=== PATIENT | female | born 1940 | race Caucasian/White ===

== ENCOUNTER 2020-01-14 08:47 | Outpatient (CLI) | payer MEDICARE, OTHER, SELFPAY ==
--- NOTE | ~2020-01-14 | MM_ITS ---
EXAMINATION: MM screening lauren BI w quintin HISTORY: Screening mammogram TECHNIQUE: Craniocaudal and mediolateral oblique 3-D tomosynthesis images were obtained and synthetic 2-D images were generated. CAD analysis was submitted and interpreted. COMPARISON: Comparison to multiple prior studies sequentially, with oldest reviewed study dated 06/2016. BREAST PARENCHYMAL COMPOSITION: There are scattered areas of fibroglandular density. FINDINGS: There is no evidence of suspicious mass, calcification, or architectural distortion to sugg est malignancy in either breast. There has been no suspicious interval change. IMPRESSION: 1. No mammographic evidence of malignancy. 2. Recommend routine screening mammography in one year. BI-RADS Category 1: Negative Reviewed, dictated and finalized at location A. ER HIDES
== END 2020-01-14 08:48 | disposition home or self-care (01) ==
LOC: ANHIMG 08:55
PROVIDERS: PCP Family Medicine; Visit Provider Family Medicine
DX: Z12.31 Encounter for screening mammogram for malignant neoplasm of breast (principal)
CPT/HCPCS: 77063; 77067

== ENCOUNTER 2020-05-12 20:51 | Emergency (ER) | payer MEDICARE, OTHER, SELFPAY ==
--- NOTE | ~2020-05-12 | XR_ITS ---
EXAMINATION: XR hip LT 2V w AP pelvis INDICATION: Left hip pain after fall TECHNIQUE: AP view the pelvis and two views of the left hip are obtained. COMPARISON: None available FINDINGS: Bone alignment is normal. There is no fracture. 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 C alcified atherosclerosis is noted. IMPRESSION: 1. No acute osseous abnormality. Reviewed, dictated and finalized at location A.
--- NOTE | ~2020-05-12 | XR_ITS ---
EXAMINATION: XR knee LT min 4V DATE: 05/12/2020 21:34 INDICATION: Left knee pain TECHNIQUE: Four views of the left knee were obtained. COMPARISON: None. FINDINGS: Alignment is normal. No fracture or osteochondral lesion. There is moderate tricompartmenta l osteoarthritis characterized by marginal osteophytes and joint space narrowing. A small knee joint effusion is present. There is medial soft tissue swelling of the knee. IMPRESSION: 1. No acute osseous abnormality. Reviewed, dictated and finalized at location A.
[2020-05-12 20:53] VITALS: BP 162/103; PULSE 62; RESP 16; TEMP 36.3; O2SAT 100
--- NOTE | 2020-05-12 21:08 | ED.LOWEXIN ---
HPI - Extremity Injury (Lower) General Chief Complaint: Extremity Injury, Lower Stated Complaint: left knee pain Time Seen by Provider: 05/12/20 20:59 Source: RN notes reviewed History of Present Illness HPI Narrative: Patient presents emergency department from home for left knee pain. Patient states that prior to arrival she was walking in the yard when she felt a pop in her left lateral knee with pain rating from her left knee up into her left posterior hip. Patient states that she is been unable to bend the knee secondary to pain since that time. Patient states she did take Aleve with minimal relief. She denies any other trauma or injury. States she does have a history of arthritis in that knee Related Data Home Medications Medication Instructions Recorded Confirmed hydrochlorothiazide 12.5 mg tablet 12.5 mg PO DAILY 12/31/19 multivitamin 1 tablet PO DAILY 12/31/19 olmesartan 20 mg tablet 20 mg PO DAILY 12/31/19 Allergies Allergy/AdvReac Type Severity Reaction Status Date / Time ciprofloxacin Allergy Unknown Unknown Verified 05/12/20 20:57 penicillin V Allergy Unknown Unknown Verified 05/12/20 20:57 Penicillins Allergy Unknown Skin Verified 05/12/20 20:57 Reaction quinapril Allergy Unknown cough Verified 05/12/20 20:57 Review of Systems Review of Systems: Narrative: Gen.: Denies fevers or chills Musculoskeletal: See HPI Neuro: Denies numbness, tingling, weakness Skin: Denies rash Endo: Denies DM PMFSH Past Medical History Medical History Major depressive disorder, single episode, mild Social History Social History Smoking status: Never smoker Alcohol intake: current Gender identity (if verbalized by the patient): Female Exam Narrative: Exam Narrative: APPEARANCE: No acute distress, nontoxic, resting in bed Eyes: EOMI HEENT: Normocephalic, atraumatic, RESPIRATORY: No respiratory distress MUSCULOSKELETAl: Tender palpation of left lateral knee, no swelling or ecchymosis, no tenderness over the anterior medial or posterior knee, pain with flexion greater than 45 degrees, pain along the left lateral hip into the posterior hip no tenderness left ankle, dorsalis pedis pulse 2+, neurovascular intact NEURO: Awake and alert. Following commands, speech normal, no focal deficits SKIN:: Warm, dry. Normal Color no rash or lesions Course Course Emergency Course: Discussed with patient results of workup and diagnosis. Discussed need for follow-up with primary care, proper use of medication, and reasons to return to the emergency department. Patient understands and agrees to current treatment plan Vital Signs Vital signs: Vital Signs Temperature 97.4 F L 05/12/20 20:53 Pulse Rate 62 05/12/20 20:53 Respiratory Rate 16 05/12/20 20:53 Blood Pressure 162/103 H 05/12/20 20:53 Pulse Oximetry 100 05/12/20 20:53 Temperature 97.4 F L 05/12/20 20:53 Pulse Rate 62 05/12/20 20:53 Respiratory Rate 16 05/12/20 20:53 Blood Pressure 162/103 H 05/12/20 20:53 Pulse Oximetry 100 05/12/20 20:53 MDM - Extremity Injury (Lower) MDM Narrative Medical decision making narrative: Patient walking pain in the left lateral knee radiates from his left hip. Suspect possible meniscus tear versus ligamentous injury versus possible hamstring injury. Discussed with patient these possibilities will place in the immobilizer follow-up with her orthopedics Dr. Stratton Discharge Plan Discharge Clinical Impression: Left knee sprain Patient Disposition: Home, Self-Care Condition: Stable Instructions: Antibiotic Form, Knee Sprain (ED) Additional Instructions: Return for increasing pain, numbness or tingling in the extremities or any other symptoms of concern Prescriptions: New naproxen 250 mg tablet 250 mg PO BID PRN (Reason: pain) Qty: 10 RF: 0 No Action hydrochlorot
[2020-05-12] MEDS: ACETAMINOPHEN 500 MG TABLET 1000 MG PO (21:38)
[2020-05-12 23:02] VITALS: BP 132/86; PULSE 82; RESP 16; TEMP 36.6; O2SAT 98
== END 2020-05-12 23:03 | disposition home or self-care (01) ==
PROVIDERS: Emergency Provider Emergency Medicine; PCP Family Medicine
DX: S83.92XA Sprain of unspecified site of left knee, initial encounter (principal); M17.12 Unilateral primary osteoarthritis, left knee; X50.9XXA Other and unspecified overexertion or strenuous movements or postures, initial encounter; Y93.01 Activity, walking, marching and hiking
CPT/HCPCS: 73502; 73564; 99284; A9270

== ENCOUNTER 2020-06-09 10:14 | Outpatient (CLI) | payer MEDICARE, OTHER, SELFPAY ==
--- NOTE | ~2020-06-09 | US_ITS ---
EXAMINATION: US right upper quadrant DATE: 06/09/2020 10:50 INDICATION: Nonspecific elevation of the levels of transaminase TECHNIQUE: Multiple grayscale and Doppler ultrasound images of the abdomen were obtained. COMPARISON: None available FINDINGS: The head, body, and tail of the pancreas are normal. The liver is normal with normal echoge nicity and echotexture. No surface nodularity. Normal hepatopetal flow in the main portal vein. The g allbladder is normal with no abnormal wall thickening, pericholecystic fluid or stones. The normal fo r age common bile duct measures 7 mm. There was no sonographic Thompson sign. IMPRESSION: 1. No sonographic correlate for the patient's symptoms. Reviewed, dictated and finalized at location A.
== END 2020-06-09 10:15 | disposition home or self-care (01) ==
LOC: ANHIMG 10:15
PROVIDERS: PCP Family Medicine; Visit Provider Family Medicine
DX: R74.0 Nonspecific elevation of levels of transaminase and lactic acid dehydrogenase [LDH] (principal)
CPT/HCPCS: 76705

== ENCOUNTER 2020-06-13 10:09 | Emergency (ER) | payer MEDICARE, OTHER, SELFPAY ==
[2020-06-13 10:26] VITALS: BP 136/66; PULSE 71; RESP 20; TEMP 36.3; O2SAT 100
--- NOTE | 2020-06-13 10:33 | ED.GENADULT ---
HPI - General Adult General Chief complaint: Skin/Abscess/Foreign Body Stated complaint: left finger redness, nausea Time Seen by Provider: 06/13/20 10:33 Source: patient and RN notes reviewed Mode of arrival: ambulatory Limitations: no limitations History of Present Illness HPI narrative: This is an 79 years old female presented office for evaluation of worsening left pinky infection. She first noticed it a couple weeks ago, her doctor thought she was bit by a spider by so she prescribed her prednisone and clindamycin. She claimed that the antibiotic did not help her infection. She still has a day and half left. Denies injury/trauma prior to this symptoms. She reports a little stomach upset contribute to antibiotic. I reviewed patient's previous visit with her doctor. HPI Pain Chief Complaint: pinkyfinger on left hand at the tip is red and swollen Details: Pt does not know what happened but she is experiencing an infection on the tip of her pinky finger of her left hand. Onset: 06/03/20 Related Data Home Medications Medication Instructions Recorded Confirmed hydrochlorothiazide 12.5 mg tablet 12.5 mg PO DAILY 12/31/19 06/13/20 multivitamin 1 tablet PO DAILY 12/31/19 06/13/20 olmesartan 20 mg tablet 20 mg PO DAILY 12/31/19 06/13/20 clindamycin HCl 300 mg BID 06/13/20 06/13/20 Allergies Allergy/AdvReac Type Severity Reaction Status Date / Time ciprofloxacin Allergy Unknown Unknown Verified 06/06/20 15:29 penicillin V Allergy Unknown Unknown Verified 06/06/20 15:29 Penicillins Allergy Unknown Skin Verified 06/06/20 15:29 Reaction quinapril Allergy Unknown cough Verified 06/06/20 15:29 Review of Systems Review of Systems: Narrative: CONSTITUTIONAL: Denies fever, chills CARDIOVASCULAR: Denies chest pain RESPIRATORY: Denies dyspnea GASTROINTESTINAL: Denies abdominal pain, vomiting, diarrhea. Reports nausea GENITOURINARY: Denies urinary symptoms SKIN: reports left pinky red, swollen and painful MUSCULOSKELETAL: Denies injury/trauma to fingers. NEUROLOGIC: Denies lightheaded All other systems reviewed are negative, except as documented in HPI. [facility] Past Medical History Medical History (Updated 06/13/20 @ 10:58 by MALISSA Erazo) Chronic kidney disease, stage 3 (moderate) Essential (primary) hypertension GERD without esophagitis Glaucoma Hypertensive chronic kidney disease with stage 1 through stage 4 chronic kidney disease, or unspecified chronic kidney disease Hypertensive heart disease, benign w/chronic kidney disease stage 1-4 Major depressive disorder, single episode, mild Metabolic syndrome Mixed hyperlipidemia Social History Social History Smoking status: Never smoker Alcohol intake: current Gender identity (if verbalized by the patient): Female Comments At time of signature, I agree with nursing past medical, surgical, social and family history. There is no relevant family history pertinent to the presenting complaint. Exam Narrative: Exam Narrative: GENERAL: This is a well-nourished, well-developed patient, in no apparent distress. CARDIOVASCULAR: Regular rate and rhythm without murmurs, gallops, or rubs. RESPIRATORY: Clear to auscultation. Breath sounds equal bilaterally. No wheezes, rales, or rhonchi. GASTROINTESTINAL: Abdomen soft, non-tender, nondistended. Bowel sounds are active. No hepato-splenomegaly, or palpable masses. No guarding. SKIN: left fifth phalange noted paronychia at the ulnar aspect; very edematous, erythema with pustular pocket. NEURO: awake, alert, and oriented to person, place and time. There were no obvious focal neurologic abnormalities. Steady gait EXTREMITIES: Normal range of motion; moves all fingers. Cap refills brisk BACK: Nontender without deformity or crepitance. No flank tenderness. Tamara Coma Scale Eye Opening: Spontaneous 4 Tamara Coma Scale Motor: Obeys Commands 6 Tamara Coma Scale Verb
== END 2020-06-13 10:53 | disposition home or self-care (01) ==
PROVIDERS: Emergency Provider Nurse Practitioner; PCP Family Medicine
DX: L03.012 Cellulitis of left finger (principal); I13.10 Hypertensive heart and chronic kidney disease without heart failure, with stage 1 through stage 4 chronic kidney disease, or unspecified chronic kidney disease; N18.3 Chronic kidney disease, stage 3 (moderate); K21.9 Gastro-esophageal reflux disease without esophagitis; H40.9 Unspecified glaucoma; E78.5 Hyperlipidemia, unspecified
CPT/HCPCS: 10060; 99212; G0463

== ENCOUNTER 2020-06-16 10:27 | Emergency (ER) | payer MEDICARE, OTHER, SELFPAY ==
[2020-06-16 10:48] VITALS: BP 151/61; PULSE 65; RESP 20; TEMP 36.3; O2SAT 99
--- NOTE | 2020-06-16 12:04 | ED.SKABFB ---
HPI - Skin/Abscess/Foreign Bdy General Chief complaint: Extremity Problem,Nontraumatic Stated complaint: finger pain Source: patient and RN notes reviewed Mode of arrival: ambulatory Limitations: no limitations History of Present Illness HPI narrative: The patient, who is on several routine meds, presents with wound check of left index finger. Patient states she has HTN, HLD, OA with Heberden nodes then had earlier visits to her PMD and here; at mid week, she completed a 7d course of clindamycin for distal fingertip infection. On her 3rd, last visit she underwent a I&D here and states nothing has seemed to help-except she has dyspepsia from the meds. She comments she is right-handed, has pet cats, immunizations are UTD [shingles, tet etc], and does occasional gardening. Infection seems to be sl spreading with rare,small satellite lesions proximally, Symptoms are mild and unimproved with Epson salt soaks, and short course steroid. No fever, proximal streaking, trauma, known bite/cut, prior/other rashes, Discussed possible causes [viral, resistant bacterial, etc.] and will treat broadly and follow-up with PMD or hand doctor. Patient history includes CKD, which she is unaware of. Patient advised will be given acyclovir to take twice daily, till she confirms her renal function/creatinine with her PMD. Related Data Home Medications Medication Instructions Recorded Confirmed hydrochlorothiazide 12.5 mg tablet 12.5 mg PO DAILY 12/31/19 06/16/20 multivitamin 1 tablet PO DAILY 12/31/19 06/16/20 olmesartan 20 mg tablet 20 mg PO DAILY 12/31/19 06/16/20 clindamycin HCl 300 mg BID 06/13/20 06/13/20 Allergies Allergy/AdvReac Type Severity Reaction Status Date / Time ciprofloxacin Allergy Unknown Unknown Verified 06/16/20 11:03 penicillin V Allergy Unknown Unknown Verified 06/16/20 11:03 Penicillins Allergy Unknown Skin Verified 06/16/20 11:03 Reaction quinapril Allergy Unknown cough Verified 06/16/20 11:03 Review of Systems Review of Systems: Narrative: General/Constitutional: No weight loss,fever Eyes: N0: Redness,discharge Ears/Nose/Throat: No: Epistaxis,ear discharge Respiratory: Denies: Hemoptysis Gastrointestinal: No Vomiting, Bleeding-rectal Skin: No Lumps, REPORTS eruption Neurologic: No Focal Weakness,Sz Hematologic: Denies: Petechiae/Purpura Psychiatric: No: Suicida ideationl All Other Systems: Reviewed and Negative [facility] Past Medical History Medical History (Updated 06/16/20 @ 11:41 by Donn El MD) Chronic kidney disease, stage 3 (moderate) Essential (primary) hypertension GERD without esophagitis Glaucoma Hypertensive chronic kidney disease with stage 1 through stage 4 chronic kidney disease, or unspecified chronic kidney disease Hypertensive heart disease, benign w/chronic kidney disease stage 1-4 Major depressive disorder, single episode, mild Metabolic syndrome Mixed hyperlipidemia Social History Social History Smoking status: Never smoker Alcohol intake: current Gender identity (if verbalized by the patient): Female Comments At time of signature, agree with nursing past medical, surgical, social and family history. There is no relevant family history pertinent to the presenting complaint Exam Narrative: Exam Narrative: General Appearance: Well-nourished, Normocephalic, Conjunctiva clear Mouth/Throat: Normal appearing Supple Respiratory: Airway patent, No respiratory distress Musculoskeletal: Mild/diffuse decreased ROM and strength due to age, hands with Heberden nodes Skin: Poorly healing, slightly infected I&D site of the index finger otherwise warm, Dry Neurological: A&O x3 Psychiatric: Normal mood, Normal affect Course Vital Signs Vital signs: Vital Signs Temperature 97.3 F L 06/16/20 10:48 Pulse Rate 65 06/16/20 10:48 Respiratory Rate 06/16/20 10:48 Blood Pressure 151/61 H 06/16/20 10:48 Pu
== END 2020-06-16 11:50 | disposition home or self-care (01) ==
PROVIDERS: Emergency Provider Emergency Medicine; PCP Family Medicine
DX: L08.9 Local infection of the skin and subcutaneous tissue, unspecified (principal); I12.9 Hypertensive chronic kidney disease with stage 1 through stage 4 chronic kidney disease, or unspecified chronic kidney disease; N18.3 Chronic kidney disease, stage 3 (moderate); H40.9 Unspecified glaucoma; E78.2 Mixed hyperlipidemia; E88.81 Metabolic syndrome and other insulin resistance; M15.1 Heberden's nodes (with arthropathy)
CPT/HCPCS: 99213; G0463

== ENCOUNTER 2021-01-19 10:10 | Outpatient (CLI) | payer MEDICARE, OTHER, SELFPAY ==
--- NOTE | ~2021-01-19 | MM_ITS ---
EXAMINATION: MM screening lauren BI w quintin HISTORY: Screening TECHNIQUE: Craniocaudal and mediolateral oblique 3-D tomosynthesis images were obtained and synthetic 2-D images were generated. CAD analysis was submitted and interpreted. COMPARISON: Comparison to multiple prior studies sequentially, with oldest reviewed study dated 12/31. BREAST PARENCHYMAL COMPOSITION: There are scattered areas of fibroglandular density. FINDINGS: There is no evidence of suspicious mass, calcification, or architectural distortion to sugg est malignancy in either breast. There has been no suspicious interval change. IMPRESSION: 1. No mammographic evidence of malignancy. 2. Recommend routine screening mammography in one year. BI-RADS Category 1: Negative Reviewed, dictated and finalized at location A. 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
== END 2021-01-19 10:11 | disposition home or self-care (01) ==
LOC: ANHIMG 10:11
PROVIDERS: PCP Family Medicine; Visit Provider Family Medicine
DX: Z12.31 Encounter for screening mammogram for malignant neoplasm of breast (principal)
CPT/HCPCS: 77063; 77067

== ENCOUNTER 2021-05-04 09:52 | Outpatient (CLI) | payer MEDICARE, OTHER, SELFPAY ==
--- NOTE | ~2021-05-04 | DEXA_ITS ---
Bone Density Report Name: Shama Presley Age: 80 Sex: Female Ethnicity: White Date of : 1940 Indication: osteopenia; height loss; prior fracture; hysterectomy; postmenopausal Referring Provider: Kaykay Blair Study: Bone densitometry was performed. Exam Date: May 04, 2021 Accession number: [id number] Bone Density: Region BMD T-score Z-score Classification AP Spine (L1, L4) 1.126 0.8 3.5 Normal Femoral Neck (Left) 0.675 -1.6 0.8 Osteopenia Total Hip (Left) 0.784 -1.3 0.9 Osteopenia Total Hip Bilateral Avg 0.817 -1.1 1.1 Osteopenia Femoral Neck (Right) 0.732 -1.1 1.3 Osteopenia Total Hip (Right) 0.849 -0.8 1.4 Normal World Health Organization criteria for BMD impression classify patients as: Normal (T-score at or above -1.0), Osteopenia (T-score between -1.0 and -2.5), or Osteoporosis (T-score at or below -2.5). 10-year Fracture Risk(1): Major Osteoporotic Fracture 20% Hip Fracture 4.5% Reported Risk Factors: [place] (), Neck BMD=0.675, BMI=27.0, previous fracture (1) FRAX(R) Version 3.08. Fracture probability calculated for an untreated patient. Fracture probability may be lower if the patient has received treatment. Previous Exams: Region Exam Age BMD T-score BMD Change BMD Change Date g/cm2 vs Baseline vs Previous AP Spine(L1, L4) 05/04/2021 80 1.126 0.8 0.044(4.1%)# -0.005(-0.4%) 01/12/2019 78 1.131 0.9 0.049(4.5%)# 0.074(7.0%)* 12/31/2016 76 1.057 0.2 -0.025(-2.3%)# -0.127(-10.7%) 08/26/2011 70 1.184 1.3 0.102(9.4%)* 0.102(9.4%)* 11/02/2005 65 1.082 0.4 Total Hip(Left) 05/04/2021 80 0.784 -1.3 -0.060(-7.1%)# -0.029(-3.6%)* 01/12/2019 78 0.813 -1.1 -0.031(-3.6%)# -0.003(-0.4%) 12/31/2016 76 0.816 -1.0 -0.028(-3.3%)# -0.028(-3.3%)# 08/26/2011 70 0.844 -0.8 0.000(0.0%) 0.000(0.0%) 11/02/2005 65 0.844 -0.8 Total Hip(Right) 05/04/2021 80 0.849 -0.8 -0.028(-3.2%)# -0.004(-0.5%) 01/12/2019 78 0.853 -0.7 -0.024(-2.8%)# -0.016(-1.9%) 12/31/2016 76 0.870 -0.6 -0.008(-0.9%)# -0.011(-1.3%)# 08/26/2011 70 0.881 -0.5 0.003(0.3%) 0.003(0.3%) 11/02/2005 65 0.878 -0.5 *Denotes significance at 95% confidence level, LSC for AP Spine = 0.022 g/cm2, LSC for Total Hip = 0.027 g/cm2 Clinical Information Provided by Patient: Has had a low trauma fracture Has used the following medications: Vitamin D, Calcium Has the following medical conditions: Hysterectomy Patient
== END 2021-05-04 09:53 | disposition home or self-care (01) ==
LOC: ANHIMG 09:53
PROVIDERS: PCP Family Medicine; Visit Provider Physician Assistant
DX: Z78.0 Asymptomatic menopausal state (principal); M85.89 Other specified disorders of bone density and structure, multiple sites
CPT/HCPCS: 77080

== ENCOUNTER 2021-11-07 07:47 | Outpatient (CLI) | payer MEDICARE, OTHER, SELFPAY ==
[2021-11-07 09:25] LABS: Basophils Percent Auto 0.3 % (0.2-1.2); Eosinophils Percent Auto 0.1 % (0-4.4); Immature Granulocyte Absolute 0.05 K/mm3 (0.00-0.031); Immature Granulocyte Percent A 0.5 % (0-0.5); Lymphocytes Absolute Auto 1.38 K/mm3 (0.9-3.2); Lymphocytes Percent Auto 13.9 % (18.3-44.2); Mean Corpuscular HGB Conc 33.3 g/dl (32-36); Mean Corpuscular Hemoglobin 31.6 pg (26-34); Mean Corpuscular Volume 94.9 fl (80-100); Mean Platelet Volume 10.3 fl (7.4-10.4); Monocytes Absolute Auto 0.8 K/mm3 (0.1-0.6); Monocytes Percent Auto 7.6 % (2.6-8.5); Neutrophils Absolute Auto 7.7 K/mm3 (1.3-6.7); Neutrophils Percent Auto 77.6 % (45.5-73.1); Platelet Count Result 209 k/mm3 (150-375); Red Blood Count 4.11 M/mm3 (4.2-5.4); Red Cell Distribution Width 13.5 % (11.5-14.5); White Blood Count 9.9 K/mm3 (4.5-10.0)
[2021-11-07 09:32] LABS: Prothrombin Time 12.6 Seconds (11.1-14.7)
[2021-11-07 09:33] LABS: Partial Thromboplastin Time 24.1 SECONDS (22.3-36.8); Urine Cotinine NEGATIVE
[2021-11-07 09:41] LABS: Hemoglobin A1C 5.5 % (<5.7)
== END 2021-11-07 07:48 | disposition home or self-care (01) ==
PROVIDERS: Anesthesiology; PCP Family Medicine; Visit Provider Orthopaedic Surgery
DX: Z01.812 Encounter for preprocedural laboratory examination (principal); M17.12 Unilateral primary osteoarthritis, left knee; N18.30 Chronic kidney disease, stage 3 unspecified; Z51.81 Encounter for therapeutic drug level monitoring; Z79.899 Other long term (current) drug therapy
CPT/HCPCS: 36415; 80307; 83036; 85025; 85610; 85730; 87081

== ENCOUNTER 2021-11-28 00:30 | Day surgery (SDC) | payer MEDICARE, OTHER, SELFPAY ==
[2021-11-07 07:58] VITALS: BP 174/74; PULSE 78; RESP 18; TEMP 36.8; O2SAT 98; BMI 28.0
--- NOTE | 2021-11-07 07:59 | PC.NURSE ---
Report to the Outpatient Waiting Room, entrance under the green pavilion located off [facility], at time _0600__ on date _11/28/21. OR Time: __0730 AM . - You and your visitor will be asked a series of questions to screen for COVID 19 for your protection. - A mask is required within the hospital. - Only one visitor is allowed at this time. Patient visitors will be guided where to wait when not with patient. Preoperative COVID Testing Requirements: No COVID Test needed if: (proof is required; if not received patient will have Rapid Test prior to entry) - Patient has received COVID Vaccine at least 14 days prior to procedure date or - Patient has positive COVID test result within last 90 days of surgery date. COVID Test needed if above criteria is not met If not COVID vaccinated a COVID test must be conducted within 72 hours of surgery and patient is asked to isolate self from time of testing until procedure. You will go to the [facility] for your COVID testing. The [facility] is located at the corner of [address] [facility]. You will only be called if COVID results are positive and your surgeon may reschedule your elective surgery date. Patients may have clear liquids (water, carbonated beverages, clear teas, apple juice) until 3 hours prior to surgery (0430 AM) with a maximum of 20 ounces. - No food from midnight until time of surgery - Infants may have breast milk until 4 hours before surgery, infant formula 6 hours prior to surgery. - Children will be allowed to drink immediately following surgery. If applicable, please bring a bottle or sippy cup to assist with drinking. Juice, water, soda, and popsicles are readily available. For infants on formula, please bring formula the day of surgery. Pacifiers are allowed. Take the following medications with a SIP of water the morning of surgery: _NONE___ Medications to discontinue per physician __MULTIVITAMIN - 3 DAYS PRIOR PER ANESTHESIA Date to take last dose___11/24/21 Please no make-up, nail icelandic, hairspray, perfume, deodorant, or body powder the day of surgery. No jewelry (including any body piercings) or valuables the day of surgery, leave them at home. Please take a shower or bath the night before, or the morning of, surgery with an antibacterial soap. Wear comfortable, loose fitting clothing. Children are encouraged to wear pajamas. - Jewelry must be removed prior to entering the operating room. Rings and piercings that are not removed may be cut off. - The hospital will not accept responsibility for valuables. - Please leave all valuables, including medications, at home the day of surgery. If you are going home after surgery, a licensed sales route driver must drive you home. - NO public transportation without another adult. - We recommend that an adult stay with you for 24 hours following discharge. - We also recommend that you do not drive, make important decision, drink alcoholic beverages, or take any drugs that were not prescribed by your health care provider for at least 24 hours after your discharge time. For Pediatric surgeries, we recommend two adults accompany the child home (only one inside the building at this time). Follow any additional instructions given to you from your surgeon. TOTAL JOINT CLASS - [facility] 11/21/21 @ 1000 LOWER LEVEL, USE MAIN ENTRANCE Telephone instructions given to ___PT and asked if any additional questions and then verbalized understanding. Patient advised to call surgeon office or pre surgery nurse liaison [phone] if any additional questions.
--- NOTE | 2021-11-26 14:25 | PM.IMHP ---
H&P: HPI History of Present Illness Date/Time: 11/26/21 14:25 the patient is a an 81-year-old female who sees Dr. Stratton regarding left knee. Patient has a chronic ongoing history of pain localized left knee this due to primary osteoarthritis. The patient has aching pain worse with activities and relieved by rest. She has start-up pain rest pain and night pain. Despite conservative measures symptoms continue she has had cortisone therapy and anti-inflammatories. X-rays demonstrate advanced primary osteoarthritis left knee joint. At this point the patient has discussed further treatment options in detail Dr. Stratton she would now like to proceed with left total knee arthroplasty. Chief Complaint: Left knee pain due to advanced primary osteoarthritis. Review of Systems Review of Systems: All systems reviewed & are unremarkable except as noted in HPI and below PMFSH Past Medical History Medical History Chronic kidney disease, stage 3 (moderate) Essential (primary) hypertension GERD without esophagitis Glaucoma Hepatitis C antibody test negative (06/15/20) Hypertensive chronic kidney disease with stage 1 through stage 4 chronic kidney disease, or unspecified chronic kidney disease Hypertensive heart disease, benign w/chronic kidney disease stage 1-4 Major depressive disorder, single episode, mild Metabolic syndrome Mixed hyperlipidemia Family History Family History Grandparent Cerebrovascular accident Mother Carcinoma of colon Patient's mother is Father Family history of lung cancer Patient's father is Other Family history of elevated blood lipids Hypertension No family history of cardiovascular disease Social History Social History Smoking status: Never smoker Second hand tobacco smoke exposure: No Additional smoking assessment comments: PT DENIES ALL FORMS OF TOBACCO USE Alcohol intake: current Alcohol use details: STATES MAYBE 1 / MONTH Substance use: never Substance use type: does not use Gender identity (if verbalized by the patient): Female Spiritual care concerns: No Meds Home Medications and Allergies Home Medications Medication Instructions Recorded Confirmed Type multivitamin 1 tablet PO QAM 12/31/19 11/07/21 History latanoprost 0.005 % eye drops 1 drp OPHTHALMIC (EYE) QPM 10/06/20 11/07/21 History omeprazole 20 mg capsule,delayed See Rx Instructions .ROUTE 08/14/21 11/07/21 Rx release .COMPLEX #90 cap atorvastatin 20 mg PO QAM 11/07/21 11/07/21 History clotrimazole See Rx Instructions .ROUTE 11/07/21 11/07/21 History .COMPLEX PRN hydrochlorothiazide 25 mg PO QAM 11/07/21 11/07/21 History lidocaine 1 applic TOPICAL TID PRN 11/07/21 11/07/21 History olmesartan 40 mg PO QAM 11/07/21 11/07/21 History prednisone See Rx Instructions .ROUTE .COMPLEX 11/07/21 11/07/21 History triamcinolone acetonide See Rx Instructions .ROUTE .COMPLEX 11/07/21 11/07/21 History Allergies Allergy/AdvReac Type Severity Reaction Status Date / Time ciprofloxacin Allergy Unknown Nausea and Verified 11/07/21 08:12 Vomiting penicillin V Allergy Unknown Rash Verified 11/07/21 08:12 quinapril Allergy Unknown cough Verified 11/07/21 08:12 Exam Narrative: On exam the patient is noted be a well-developed well-nourished female no acute distress alert oriented x3. Normal mood and affect. BMI is 28.1. Hearing and vision are intact. Respiratory is good no distress. Pulse regular rate rhythm. Abdomen benign. Extremities showed the patient's left knee to be painful with manipulation and range of motion. She has tenderness on the joint lines and pain with extremes of motion with subpatellar crepitation mild effusion swelling hips move well with negative Stinchfield negative Robi. Neurovascularl
--- NOTE | 2021-11-27 11:40 | WPDANESEPPF ---
Anes - Initial Pre Proc Eval Procedure: Operation Date: 11/28/21 07:30 Proposed Procedures p Left Total Knee Arthroplasty - Billy Stratton MD Date/Time: 11/27/21 11:40 Surgeon: Billy Stratton MD Pre Op Diagnosis: left knee oa Patient Data Age: 81 Gender: F Height: 1.6 m Weight: 71.9 kg Last Vital Signs Temp 36.8 C 11/07/21 07:58 Pulse 78 11/07/21 07:58 Resp 18 11/07/21 07:58 BP 174/74 H 11/07/21 07:58 Pulse Ox 98 11/07/21 07:58 Allergies Allergy/AdvReac Type Severity Reaction Status Date / Time ciprofloxacin Allergy Mild Nausea and Verified 11/28/21 05:59 Vomiting penicillin V Allergy Mild Rash Verified 11/28/21 05:59 quinapril Allergy Mild cough Verified 11/28/21 05:59 Home Medications Medication Instructions Recorded Confirmed Type multivitamin 1 tablet PO QAM 12/31/19 11/28/21 History latanoprost 0.005 % eye drops 1 drp OPHTHALMIC (EYE) QPM 10/06/20 11/28/21 History omeprazole 20 mg capsule,delayed See Rx Instructions .ROUTE 08/14/21 11/28/21 Rx release .COMPLEX #90 cap atorvastatin 20 mg PO QAM 11/07/21 11/28/21 History clotrimazole See Rx Instructions .ROUTE 11/07/21 11/28/21 History .COMPLEX PRN hydrochlorothiazide 25 mg PO QAM 11/07/21 11/28/21 History lidocaine 1 applic TOPICAL TID PRN 11/07/21 11/07/21 History olmesartan 40 mg PO QAM 11/07/21 11/28/21 History triamcinolone acetonide See Rx Instructions .ROUTE .COMPLEX 11/07/21 11/28/21 History Patient hx anesthesia problems: none Family hx anesthesia problems: none Results Review: All pre-operative results and documents have been reviewed as part of the pre-operative evaluation. 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 Major depressive disorder, single episode, mild Metabolic syndrome Mixed hyperlipidemia Family History Family History Grandparent Cerebrovascular accident Mother Carcinoma of colon Patient's mother is Father Family history of lung cancer Patient's father is Other Family history of elevated blood lipids Hypertension No family history of cardiovascular disease Social History Social History Smoking status: Never smoker Second hand tobacco smoke exposure: No Additional smoking assessment comments: PT DENIES ALL FORMS OF TOBACCO USE Alcohol intake: current Alcohol use details: STATES MAYBE 1 / MONTH Substance use: never Substance use type: does not use Living arrangements: alone Gender identity (if verbalized by the patient): Female Spiritual care concerns: No Anes - Eval Final PreProcedure Day of Procedure 11/27/21 11:40 Patient weight: overweight Heart: regular rate and rhythm Lungs: clear to auscultation and normal air movement Airway: Mallampati scale class II Neurological: alert and oriented Last oral intake: >/= 8 hours ASA classification: III Emergent: no Anesthetic plan: proceed Anesthesia type and monitoring: general LMA and standard monitoring Results Review: All pre-operative results and documents have been reviewed as part of the pre-operative evaluation. Informed Consent: The patient's anesthetic plan and its attendant risks and benefits were discussed with the patient/family/POA. Questions were solicited and answers provided to the satisfaction of the patient/family/POA.
--- NOTE | 2021-11-27 11:41 | WPDANESPNB ---
Anes - Peripheral Nerve Block Date/Time: 11/27/21 11:41 I have discussed with the patient/family/POA the placement of a peripheral nerve block for post-operative pain management, including associated risks, benefits, complications, and side effects. Alternative methods of post-operative analgesia were detailed. Questions were solicited and answers provided to the satisfaction of the patient/family/POA. Time-Out: A pre-procedural Time-Out was completed immediately before starting the procedure and confirmed: Patient Identification, Site, Procedure, Patient Position and the Availability of Requisite Equipment. Clinical Indications: Acute post-operative pain management requested by the operative surgeon. Nerve Block Insertion Note Anes-nerve block: adductor canal left Patient position: supine Skin prep: chlorhexidine Needle: 22 gauge, stimulating, insulated echogenic needle. Needle length: 80 mm Technique: ultrasound Injectate: bupivacaine 0.5% with epi 5 mcg/ml (30cc - no epi) Observations: tolerated well Complications: none Procedure start time:: 709 Procedure end time:: 713
[2021-11-28] VITALS (14 sets, daily range): BP systolic 129–178; BP diastolic 48–99; PULSE 65–87; RESP 12–30; TEMP 36.4–37.4; O2SAT 95–100
--- NOTE | ~2021-11-28 | XR_ITS ---
EXAMINATION: XR knee LT 2V DATE: 11/28/2021 09:44 INDICATION: Total left knee arthroplasty. Postop. TECHNIQUE: 2 views of left knee were obtained. COMPARISON: Left knee radiograph 05/12/2020 FINDINGS: There is a total left knee arthroplasty with patellar resurfacing in near-anatomic alignmen t. No fracture. There is gas in the knee joint and soft tissues, consistent with recent surgery. Ther e is a small knee joint effusion. Anterior skin mary are noted. IMPRESSION: 1. Total left knee arthroplasty in near-anatomic alignment. Reviewed, dictated and finalized at location B. [employer]
[2021-11-28] MEDS: ACETAMINOPHEN 500 MG TABLET 1000 MG PO (06:18)
[2021-11-28] MEDS: LACTATED RINGERS 1,000 ML 30 ML IV CONT ×2 (06:35→10:13)
--- NOTE | 2021-11-28 07:04 | WPDHPUPDATE1 ---
History and Physical Update Update Date/Time: 11/28/21 07:04 History and Physical has been reviewed, including an updated exam of the patient. There are NO changes in the patient's condition. Risks, benefits, and alternatives have been discussed and questions answered. Patient agrees to proceed with procedure.
[2021-11-28] MEDS: TRANEXAMIC ACID 1,000MG/ISO100 1,000 MG/100 ML BAG 200 MG IVPB (07:05)
[2021-11-28] MEDS: ceFAZolin 2 GM/D5W 50 ML 2 GM/50 ML BAG IVPB (07:24)
--- NOTE | 2021-11-28 08:46 | P.OP_ITS ---
Procedure Note - Detailed Date of Procedure 11/28/21 Pre-op Diagnosis left knee oa Post-op Diagnosis same Procedure Performed [Left] total knee arthroplasty Surgeon Billy Stratton MD Senior [employer] Server Database Developer Kory Damon Anesthesia general Description of Procedure The patient was brought to the operating room. General anesthetic was administered. Placed on the operating table and sterilely prepped and draped in usual manner. A longitudinal incision was made. Tourniquet inflated to 300 mmHg for a total of [time] minutes. Dissection carried down to the fascia. Medial parapatellar incision was made and the patella subluxated laterally. Patella cut from [23] to [15] mm and sized for a [34] mm button. The tibia cut perpendicular to the long axis and femur cut in 5 degrees of valgus, a [60] femur trialed. [67] tibia was felt to fit the best. The soft tissue balanced, hemostasis obtained. All [address], [67] tibia, [660] femur, [34] mm patella, and [13AS] mm poly. Motion was 0-125 degrees with good stablility and flexion and extension. The wound was closed with #2 vicryl, 2-0 Vicryl and mary. Estimated Blood Loss 200 Drains No Packing No Pathology none sent Complications No immediate complications Condition stable Disposition PACU
[2021-11-28] MEDS: HYDROmorphone HCL INJ (*CRX) 1 MG/ML SYR 0.25 MG IV PUSH ×6 (09:34→10:35)
--- NOTE | 2021-11-28 09:58 | SUR.PHASEI ---
Simple mask removed at 0982.
--- NOTE | 2021-11-28 10:58 | ADMGEN ---
This patient, Shama Presley, was admitted to [facility] Surgery-3. Patient/family oriented to hospital policies and general routines including ID bracelet, bed and alarms, visiting hours, pain management, procedures, bathroom and other care routines, personal items, smoking policy, room service/diet, and visiting hours. Information on how to activate the Rapid Response Team has been discussed. Patient/Family are encouraged to report perceived risks to care and to ask questions if they do not understand what they are told or what they should do.
[2021-11-28] MEDS: SODIUM CHLORIDE 0.9% IV 1,000 ML 125 ML IV CONT (11:16)
[2021-11-28] MEDS: ATORVASTATIN 20 MG TABLET PO (12:31)
[2021-11-28] MEDS: hydroCHLOROthiazide 25 MG TABLET PO (12:31)
[2021-11-28] MEDS: MULTIVITAMINS THERAPEUTIC TAB (*BKC) 1 TABLET PO (12:32)
[2021-11-28] MEDS: SENNA/DOCUSATE SODIUM TABLET 2 TAB PO ×2 (12:32→16:12)
[2021-11-28] MEDS: HYDROcodone/acetaminophen (*CRX) 5-325 MG TABLET 2 TAB PO ×2 (12:33→19:00)
--- NOTE | 2021-11-28 14:15 | WPDCN ---
Assessment and Plan Assessment and plan (1) Osteoarthritis of left knee: Code(s): M17.12 - Unilateral primary osteoarthritis, left knee Status: Acute Assessment and Plan: Postoperative day 0 status post left total knee arthroplasty. Wound care, pain control, and DVT prophylaxis deferred to Dr. Stratton. PT/OT consulted. (2) Essential hypertension: Code(s): I10 - Essential (primary) hypertension Status: Acute Assessment and Plan: Blood pressures were reviewed and they have been running high though she did not take her antihypertensives this morning. Pain likely playing a factor here as well. Resume antihypertensives and monitor blood pressures closely. (3) Chronic kidney disease, stage 3: Code(s): N18.30 - Chronic kidney disease, stage 3 unspecified Status: Acute Assessment and Plan: Baseline creatinine is between 1.0 and 1.10. Monitor urine output postoperatively. BMP in a.m. (4) Gastroesophageal reflux disease: Code(s): K21.9 - Gastro-esophageal reflux disease without esophagitis Status: Acute Assessment and Plan: Continue omeprazole. (5) Mixed hyperlipidemia: Code(s): E78.2 - Mixed hyperlipidemia Status: Acute Assessment and Plan: Continue atorvastatin. Check LFTs in a.m. (6) Glaucoma: Code(s): H40.9 - Unspecified glaucoma Status: Acute Assessment and Plan: Continue latanoprost. Additional Plan Thank you for allowing us to participate in this patient's care. Please do not hesitate to contact us with any questions. Supervising physician for this medical consultation is Dr. Erasmo Mccoy. HPI Data of Consult Date/Time: 11/28/21 14:15 Requesting Physician: Billy Stratton MD Primary Care Provider: Pat Morales DO Consult Narrative Narrative: This is an 81-year-old female with hypertension, hyperlipidemia, chronic kidney disease, and osteoarthritis whom the hospitalist service has been consulted for help with managing her medical conditions postoperatively. She has had longstanding pain in her left knee which has not been amenable to conservative outpatient treatment and thus she elected for replacement today. Her surgery was performed under general anesthesia with no immediate complications documented an estimated blood loss of 200 mL. Postoperatively she is doing well and her pain is controlled. She denies fever, chills, sweats, chest pain, shortness of breath, nausea, and vomiting. She also denies paresthesias, skin color, and temperature changes distal to the surgical site. The patient lives alone but her daughter is here from [place] and will be staying with her during her recovery. Review of Systems Review of Systems: Twelve systems were reviewed. No recent cold or flu symptoms. No sick contacts. Chest pain, pleuritic pain, and shortness of breath. No history of venous thromboembolism. Except as documented, all other systems were reviewed and are negative. [facility] Past Medical History Medical History (Updated 11/28/21 @ 14:35 by Michelle Goldman PA-C) Basal cell carcinoma of chest wall Chronic kidney disease, stage 3 Diverticulosis Essential hypertension Gastroesophageal reflux disease Glaucoma Glaucoma Major depressive disorder, single episode, mild Metabolic syndrome Mixed hyperlipidemia Osteoarthritis Surgical History Surgical History (Updated 11/28/21 @ 14:24 by Michelle Goldman PA-C) History of basal cell carcinoma excision History of bladder suspension procedure History of cataract extraction History of colonoscopy History of dilation and curettage History of hysterectomy History of lumbar surgery History of tonsillectomy Family History Family History Grandparent Cerebrovascular accident Mot
[2021-11-28] MEDS: traMADol HCL (*CRX) 50 MG TABLET PO (16:08)
[2021-11-28] MEDS: RIVAROXABAN 10 MG TABLET PO (16:12)
[2021-11-28] MEDS: CELECOXIB 200 MG CAPSULE PO (16:14)
[2021-11-28] MEDS: LATANOPROST 0.005% OP SOLN 2.5 ML BTL 1 DROP EACH EYE (20:23)
[2021-11-29] MEDS: HYDROcodone/acetaminophen (*CRX) 5-325 MG TABLET 1 TAB PO ×2 (05:20→09:36)
[2021-11-29 05:49] VITALS: BP 135/88; PULSE 74; RESP 20
[2021-11-29 06:43] LABS: Basophils Percent Auto 0.6 % (0.2-1.2); Eosinophils Percent Auto 0.4 % (0-4.4); Hematocrit 27.6 % (37.0-47.0); Hemoglobin 9.3 g/dL (12.0-15.0); Immature Granulocyte Absolute 0.01 K/mm3 (0.00-0.031); Immature Granulocyte Percent A 0.2 % (0-0.5); Lymphocytes Absolute Auto 0.81 K/mm3 (0.9-3.2); Lymphocytes Percent Auto 17.5 % (18.3-44.2); Mean Corpuscular HGB Conc 33.7 g/dl (32-36); Mean Corpuscular Hemoglobin 31.3 pg (26-34); Mean Corpuscular Volume 92.9 fl (80-100); Mean Platelet Volume 9.7 fl (7.4-10.4); Monocytes Absolute Auto 0.6 K/mm3 (0.1-0.6); Monocytes Percent Auto 12.3 % (2.6-8.5); Neutrophils Absolute Auto 3.2 K/mm3 (1.3-6.7); Platelet Count Result 165 k/mm3 (150-375); Red Blood Count 2.97 M/mm3 (4.2-5.4); Red Cell Distribution Width 13.5 % (11.5-14.5); White Blood Count 4.6 K/mm3 (4.5-10.0)
[2021-11-29 06:58] LABS: Alanine Aminotransferase 16 U/L (4-35); Albumin Level 3.1 g/dL (3.5-5.1); Alkaline Phosphatase 59 U/L (38-126); Aspartate Amino Transferase 65 U/L (14-36); Bilirubin,Total 0.8 mg/dL (0.2-1.3)
[2021-11-29 06:59] LABS: Anion Gap 7 mmol/L (8-16); Blood Urea Nitrogen 24 mg/dL (7-17); Calcium 8.1 mg/dL (8.4-10.2); Carbon Dioxide 27 mmol/L (22-30); Chloride 99 mmol/L (98-107); Estimated CRCL calculation 37 ml/min; Estimated Glomerular Filt Rate 53; Glucose 126 mg/dL (65-110); Sodium 133 mmol/L (137-145)
[2021-11-29] MEDS: traMADol HCL (*CRX) 50 MG TABLET PO (07:50)
[2021-11-29] MEDS: CELECOXIB 200 MG CAPSULE PO (07:50)
[2021-11-29 07:59] VITALS: BP 125/56; PULSE 78; RESP 16; TEMP 36.3; O2SAT 94
[2021-11-29] MEDS: OLMESARTAN MEDOXOMIL 20 MG TABLET 40 MG PO (09:35)
[2021-11-29] MEDS: ATORVASTATIN 20 MG TABLET PO (09:35)
[2021-11-29] MEDS: MULTIVITAMINS THERAPEUTIC TAB (*BKC) 1 TABLET PO (09:36)
[2021-11-29] MEDS: SENNA/DOCUSATE SODIUM TABLET 2 TAB PO (09:37)
[2021-11-29] MEDS: PANTOPRAZOLE 40 MG TABLET PO (09:37)
[2021-11-29] MEDS: hydroCHLOROthiazide 25 MG TABLET PO (09:37)
--- NOTE | 2021-11-29 09:52 | PM.IMPN ---
Progress Note: A&P Assessment and Plan (1) Osteoarthritis of left knee: Code(s): M17.12 - Unilateral primary osteoarthritis, left knee Status: Acute Assessment and Plan: Postoperative day 0 status post left total knee arthroplasty. Wound care, pain control, and DVT prophylaxis deferred to Dr. Stratton. PT/OT consulted. (2) Essential hypertension: Code(s): I10 - Essential (primary) hypertension Status: Acute Assessment and Plan: Blood pressures were reviewed and they have been running high though she did not take her antihypertensives this morning. Pain likely playing a factor here as well. Resume antihypertensives and monitor blood pressures closely. (3) Chronic kidney disease, stage 3: Code(s): N18.30 - Chronic kidney disease, stage 3 unspecified Status: Acute Assessment and Plan: Baseline creatinine is between 1.0 and 1.10. Monitor urine output postoperatively. BMP in a.m. (4) Gastroesophageal reflux disease: Code(s): K21.9 - Gastro-esophageal reflux disease without esophagitis Status: Acute Assessment and Plan: Continue omeprazole. (5) Mixed hyperlipidemia: Code(s): E78.2 - Mixed hyperlipidemia Status: Acute Assessment and Plan: Continue atorvastatin. Check LFTs in a.m. (6) Glaucoma: Code(s): H40.9 - Unspecified glaucoma Status: Acute Assessment and Plan: Continue latanoprost. Additional Plan 11/29/21 BP improved potassium repleted cont current care dc planning per ortho Subjective Date/time seen: 11/29/21 09:52 Patient doing okay has no complaints during my interview and examination today. RN bedside all questions answered Exam Narrative: General: No acute distress oriented cooperative HEENT: NCAT EOMI. Sclerae anicteric. Oral mucosa moist. Oropharynx clear. Neck: Supple. Respiratory: Symmetric chest rise no use of accessory muscles Gastrointestinal: Abdomen is soft, nontender, and nondistended. Skin: Warm and dry. No rash or lesions on limited exam. Extremities: No cyanosis, clubbing, or edema. Musculoskeletal: Left knee dressing is clean, dry, and intact. Ice pack in place. She is neurovascular intact distal to the surgical site. Neurological: Alert. Cranial nerves 2-12 grossly intact. No gross focal deficits to casual conversation. Psychiatric: Pleasant and cooperative with normal mood and affect. Judgment and insight intact. Objective Data Vital Signs Vital Signs: Vital Signs - 24 hr 11/28/21 10:05 11/28/21 10:20 11/28/21 10:35 Temperature 98.7 F Pulse Rate 70 65 70 Respiratory Rate 18 12 14 Blood Pressure 152/68 H 169/73 H 161/67 H Pulse Oximetry 98 98 97 11/28/21 11:00 11/28/21 11:15 11/28/21 11:30 Temperature 97.9 F Pulse Rate 77 70 Respiratory Rate 16 16 Blood Pressure 174/91 H 129/78 Pulse Oximetry 100 100 100 11/28/21 11:45 11/28/21 12:45 11/28/21 16:45 Temperature Pulse Rate 69 68 71 Respiratory Rate 14 18 16 Blood Pressure 154/63 H 132/63 154/73 H Pulse Oximetry 95 99 99 11/28/21 20:00 11/29/21 05:49 11/29/21 07:59 Temperature 98.0 F 97.3 F L Pulse Rate 70 74 78 Respiratory Rate 12 20 16 Blood Pressure 141/48 H 135/88 125/56 L Pulse Oximetry 95 94 Intake/Output Intake/Output: Intake & Output 11/26/21 11/27/21 11/28/21 11/29/21 23:59 23:59 23:59 23:59 Intake Total 2450 300 Balance 2450 300 Meds/Results Medications: Active Medications Generic Name Dose Route Start Last Admin Trade Name Freq PRN Reason Stop Dose Admin Hydrocodone Bitart/Acetaminophen 1 tab 11/28/21 10:46 11/29/21 09:36 Hydrocodone/Acetaminophen (*Crx) 5-325 Mg Tablet PO 1 tab Q4H PRN Administration Pain Rated 4-6 Hydrocodone Bitart/Acetaminophen 2 tab 11/28/21 10:46 11/28/21 19:00 Hydrocodone/Acetaminophen (*Crx) 5-325 Mg Tablet PO 2 tab Q6H PRN Administration Pain Rated 7-10 Atorv
[2021-11-29] MEDS: POTASSIUM CHLORIDE 20 MEQ TABLET 40 MEQ PO (10:53)
--- NOTE | 2021-11-29 10:57 | PM.PNORT ---
Progress Note: A&P Additional Plan Status post left total knee arthroplasty doing well will discharge later today. See discharge orders. The patient voiced understanding and agrees with above plan. Will follow-up with Dr. Stratton 2 weeks postop. Subjective Subjective Date/Time Seen: 11/29/21 10:57 Patient status post total knee arthroplasty postop day 1. Doing well pain is well controlled of therapy ambulating independently. No other complaints today. Patient is ready for discharge home later today. Review of Systems Review of Systems: All systems reviewed & are unremarkable except as noted in HPI and below Exam Narrative: Vital signs stable afebrile neurovascular patient intact wound is clean and dry calves are benign ambulating with a walker in therapy tolerating well. Alert oriented x3. Normal mood and affect. In no acute distress. Objective Data Vital Signs Vital Signs: Vital Signs - 24 hr 11/28/21 11:00 11/28/21 11:15 11/28/21 11:30 Temperature 36.6 C Pulse Rate 77 70 Respiratory Rate 16 16 Blood Pressure 174/91 H 129/78 Pulse Oximetry 100 100 100 11/28/21 11:45 11/28/21 12:45 11/28/21 16:45 Temperature Pulse Rate 69 68 71 Respiratory Rate 14 18 16 Blood Pressure 154/63 H 132/63 154/73 H Pulse Oximetry 95 99 99 11/28/21 20:00 11/29/21 05:49 11/29/21 07:59 Temperature 36.7 C 36.3 C L Pulse Rate 70 74 78 Respiratory Rate 12 20 16 Blood Pressure 141/48 H 135/88 125/56 L Pulse Oximetry 95 94 Intake/Output Intake/Output: Intake & Output 11/26/21 11/27/21 11/28/21 11/29/21 23:59 23:59 23:59 23:59 Intake Total 2450 300 Balance 2450 300 Meds/Results Medications: Active Medications Generic Name Dose Route Start Last Admin Trade Name Freq PRN Reason Stop Dose Admin Hydrocodone Bitart/Acetaminophen 1 tab 11/28/21 10:46 11/29/21 09:36 Hydrocodone/Acetaminophen (*Crx) 5-325 Mg Tablet PO 1 tab Q4H PRN Administration Pain Rated 4-6 Hydrocodone Bitart/Acetaminophen 2 tab 11/28/21 10:46 11/28/21 19:00 Hydrocodone/Acetaminophen (*Crx) 5-325 Mg Tablet PO 2 tab Q6H PRN Administration Pain Rated 7-10 Atorvastatin Calcium 20 mg 11/28/21 10:46 11/29/21 09:35 Atorvastatin 20 Mg Tablet PO 20 mg QAM [facility] Administration Celecoxib 200 mg 11/28/21 17:00 11/29/21 07:50 Celecoxib 200 Mg Capsule PO 200 mg BIDWM YANICK Administration Cyclobenzaprine HCl 10 mg 11/28/21 10:46 Cyclobenzaprine Hcl 10 Mg Tablet PO Q8H PRN Spasms Hydrochlorothiazide 25 mg 11/28/21 10:46 11/29/21 09:37 Hydrochlorothiazide 25 Mg Tablet PO 25 mg QAM [facility] Administration Latanoprost 1 drop 11/28/21 21:00 11/28/21 20:23 Latanoprost 0.005% Op Soln 2.5 Ml Btl EACH EYE 1 drop HS [facility] Administration Multivitamins Therapeutic 1 tablet 11/28/21 10:46 11/29/21 09:36 Multivitamins Therapeutic Tab (*Bkc) PO 1 tablet QAM [facility] Administration Naloxone HCl 0.1 mg 11/28/21 10:46 Naloxone Hcl 0.4 Mg/Ml Vial IV PUSH Q2M PRN Opiate Reversal Olmesartan 40 mg 11/29/21 09:00 11/29/21 09:35 Olmesartan Medoxomil 20 Mg Tablet PO 40 mg QAM [facility] Administration Pantoprazole Sodium 40 mg 11/29/21 09:00 11/29/21 09:37 Pantoprazole 40 Mg Tablet PO 40 mg DAILY@0700 [facility] Administration Polyethylene Glycol 17 gm 11/28/21 10:46 11/29/21 09:38 Polyethylene Glycol 3350 17 Gm Powd.Pack PO Not Given QAM [facility] Rivaroxaban 10 mg 11/28/21 17:00 11/28/21 16:12 Rivaroxaban 10 Mg Tablet PO 12/09/21 17:01 10 mg DAILY@17 [facility] Administration Senna/Docusate Sodium 2 tab 11/28/21 10:46 11/29/21 09:37 Senna/Docusate Sodium Tablet PO 2 tab BID YANICK Administration Tramadol HCl 50 mg 11/28/21 10:46 11/29/21 07:50 Tramadol Hcl (*Crx) 50 Mg Tablet PO 50 mg Q4H PRN Administration Pain Rated 1-3 Radiology Results: ITS Impressions Knee X-Ray 11/28/21 09:54 IMPRESSION: 1. To
--- NOTE | 2021-11-29 11:25 | PM.DS ---
DS: Admitting Diagnosis Discharge Date November 29, 2021 Admitting Diagnosis severe primary osteoarthritis left knee joint. Discharge diagnosis -severe primary osteoarthritis left knee joint status post left total knee arthroplasty. DS: Summary Hospital Course Hospital Course: Patient was admitted overnight status post left total knee arthroplasty, the surgery is done November 28, [address] Stratton. Postop day 1 the patient was doing well up ambulating independently with a walker weight-bearing as tolerated. Vital signs are stable she is afebrile neurovascular she is intact wound is clean and dry calves are benign. Patient is deemed stable for discharge home will follow-up at 2 weeks postop for staple removal and wound recheck. Xarelto has been ordered for DVT prophylaxis if we cannot get this approved through insurance she will take aspirin 325 mg b.i.d. x1 month. Patient is also given [place] 7.5 mg every 4 hours p.r.n. pain and Flexeril 10 mg q.8 hours p.r.n. spasm and pain. The patient voiced understanding and agrees with above plan. Time Spent with Patient Time attestation: Total time spent providing and/or coordinating discharge services: Exam Narrative: Vital signs stable afebrile neurovascular patient is intact wound is clean and dry cast benign up ambulating independently with a walker status post surgery. Well-developed well-nourished female no acute distress alert oriented x3. Normal mood and affect. Pain well controlled. DS: Data Data Completed and Pending Labs on day of discharge: Labs from last 24 hours 11/29/21 11/29/21 11/29/21 06:29 06:29 06:29 WBC 4.6 RBC 2.97 L Hgb 9.3 L D Hct 27.6 L MCV 92.9 MCH 31.3 MCHC 33.7 RDW 13.5 Plt Count 165 MPV 9.7 Immature Gran % (Auto) 0.2 Neut % (Auto) 69.0 Lymph % (Auto) 17.5 L [place] % (Auto) 12.3 H Eos % (Auto) 0.4 Baso % (Auto) 0.6 Lymph # (Auto) 0.81 L [place] # (Auto) 0.6 Eos # (Auto) 0.0 Baso # (Auto) 0.0 Abs Immat Gran (auto) 0.01 Absolute Neuts (auto) 3.2 Absolute Nucleated RBC 0.0 Nucleated RBC % 0.0 Sodium 133 L Potassium 3.0 L Chloride 99 Carbon Dioxide 27 Anion Gap 7 L BUN 24 H Creatinine 1.00 Estim Creat Clear Calc 37 Estimated GFR 53 L Glucose 126 H Calcium 8.1 L Total Bilirubin 0.8 Direct Bilirubin 0.0 AST 65 H ALT 16 Alkaline Phosphatase 59 Total Protein 5.0 L Albumin 3.1 L Discharge Plan Discharge Patient Disposition: Home, Self-Care Discharge Instructions: discharge home general diet activity as tolerated weightbearing as tolerated with walker left lower extremity. Patient will have outpatient physical therapy beginning early next week for total knee protocol. Change dressing daily keep clean and dry watch for evidence of drainage or infection. Patient is discharged in good condition, stable. Patient will do her exercises daily. patient is being discharged with Xarelto 10 mg daily and also [place] 7.5 mg every 4 hours p.r.n. severe pain. With Xarelto course is completed at 2 weeks postop she will go to aspirin 325 mg b.i.d. x1 month. The patient will follow-up at 2 weeks postop for staple removal and wound recheck. Patient voiced understanding and agrees with above plan. Patient Instructions: Rivaroxaban (By mouth) Stand Alone Forms: Avoid NSAIDs Follow-up/Referrals: Billy Stratton MD [Physician] - Discharge Medications: New hydrocodone-acetaminophen 7.5-325 mg tablet 1 tablet PO Q4H PRN (Reason: pain) Qty: 40 RF: 0 Xarelto 10 mg tablet 10 mg PO DAILY Qty: 10 RF: 0 cyclobenzaprine 10 mg Tablet 10 mg PO Q8H PRN (Reason: Spasms) Qty: 40 RF: 0 hydrocodone-acetaminophen 7.5-325 mg tablet 1 tablet PO Q4H PRN (Reason: Pain Rated 4-6) Qty: 50 RF: 0 Continued multivitamin Tablet 1 tablet PO QAM RF: 0 latanoprost 0.005 % drops 1 drp ophthalmic (eye) QPM R
[2021-11-29] MEDS: HYDROcodone/acetaminophen (*CRX) 5-325 MG TABLET 2 TAB PO (11:43)
[2021-11-29 11:50] VITALS: BP 148/56; PULSE 81; RESP 16; TEMP 36.8; O2SAT 97
--- NOTE | 2021-11-29 16:01 | PC.NURSE ---
[address] santamaria and pt is ok to be discharged
== END 2021-11-29 16:40 | disposition home or self-care (01) ==
LOC: ANHSURGERY 05:46 → ANHSUROVER 10:48
PROVIDERS: Physician Assistant; PCP Family Medicine; Visit Provider Orthopaedic Surgery
PROC: (CPT 27447; principal; 2021-11-28 07:30)
DX: M17.12 Unilateral primary osteoarthritis, left knee (principal); G89.18 Other acute postprocedural pain; I12.9 Hypertensive chronic kidney disease with stage 1 through stage 4 chronic kidney disease, or unspecified chronic kidney disease; N18.30 Chronic kidney disease, stage 3 unspecified; K21.9 Gastro-esophageal reflux disease without esophagitis; H40.9 Unspecified glaucoma; F32.0 Major depressive disorder, single episode, mild; E78.2 Mixed hyperlipidemia
CPT/HCPCS: 27447; 64447; 36415; 73560; 80048; 80076; 85025; 86850; 86900; 86901; 97110; 97116; 97161; 97165; 97530; 97535; A9270; C1713; C1776; J0171; J0690; J1170; J1885; J2250; J2270; J2370; J2405; J2704; J2795; J3010; J3370; J7030; J7120

== ENCOUNTER 2022-02-06 09:30 | Outpatient (CLI) | payer MEDICARE, OTHER, SELFPAY ==
--- NOTE | ~2022-02-06 | MM_ITS ---
EXAMINATION: MM screening lauren BI w quintin HISTORY: Screening mammogram TECHNIQUE: Craniocaudal and mediolateral oblique 3-D tomosynthesis images were obtained and synthetic 2-D images were generated. CAD analysis was submitted and interpreted. COMPARISON: 01/19/2021, 01/14/2020, 01/12/2019 bilateral screening mammogram examinations BREAST PARENCHYMAL COMPOSITION: There are scattered areas of fibroglandular density. FINDINGS: There is no evidence of suspicious mass, calcification, or architectural distortion to sugg est malignancy in either breast. There has been no suspicious interval change. IMPRESSION: 1. No mammographic evidence of malignancy. 2. Recommend routine screening mammography in one year. BI-RADS Category 1: Negative Reviewed, dictated and finalized at location A.
== END 2022-02-06 09:31 | disposition home or self-care (01) ==
PROVIDERS: PCP Family Medicine; Visit Provider Physician Assistant
DX: Z12.31 Encounter for screening mammogram for malignant neoplasm of breast (principal)
CPT/HCPCS: 77063; 77067

== ENCOUNTER 2022-05-06 09:37 | Outpatient (CLI) | payer MEDICARE, OTHER, SELFPAY ==
--- NOTE | ~2022-05-06 | US_ITS ---
EXAMINATION: US venous doppler [facility] DATE: 05/06/2022 10:45 INDICATION: Deep venous thrombosis and acute embolism presenting with left lower limb pain and swelli ng TECHNIQUE: Grayscale ultrasound images without and with compression and Doppler ultrasound images of the left lower extremity veins were obtained. COMPARISON: None. FINDINGS: The visualized portions of left common femoral vein, profunda (deep) femoral vein, femoral vein, popl iteal vein, peroneal veins, posterior tibial veins, gastrocnemius vein and greater saphenous vein out flow are patent. IMPRESSION: 1. No deep venous thrombosis in the left lower limb. Reviewed, dictated and finalized at location B.
== END 2022-05-06 09:38 | disposition home or self-care (01) ==
PROVIDERS: PCP Family Medicine; Visit Provider Orthopaedic Surgery
DX: I82.409 Acute embolism and thrombosis of unspecified deep veins of unspecified lower extremity (principal); M79.89 Other specified soft tissue disorders
CPT/HCPCS: 93971

== ENCOUNTER 2022-07-01 00:18 | Day surgery (SDC) | payer MEDICARE, OTHER, SELFPAY ==
[2022-06-14 15:36] VITALS: BMI 28.0
[2022-07-01 07:41] VITALS: BP 149/80; PULSE 66; RESP 18; TEMP 36.3; O2SAT 100
[2022-07-01] MEDS: LACTATED RINGERS 1,000 ML 150 ML IV CONT (07:52)
--- NOTE | 2022-07-01 07:57 | WPDANESEPPF ---
Anes - Initial Pre Proc Eval Procedure: Operation Date: 07/01/22 08:30 Proposed Procedures p Screening Colonoscopy - Humphrey Joe MD Date/Time: 07/01/22 07:57 Surgeon: Humphrey Joe MD Pre Op Diagnosis: hx of colon polyps Patient Data Age: 81 Gender: F Height: 1.6 m Weight: 71.8 kg Last Vital Signs Temp 36.3 C L 07/01/22 07:41 Pulse 66 07/01/22 07:41 Resp 18 07/01/22 07:41 BP 149/80 H 07/01/22 07:41 Pulse Ox 100 07/01/22 07:41 O2 Del Method Room Air 07/01/22 07:41 Allergies Allergy/AdvReac Type Severity Reaction Status Date / Time penicillin V Allergy Intermediate Rash Verified 07/01/22 07:39 quinapril Allergy Mild cough Verified 07/01/22 07:39 ciprofloxacin AdvReac Mild Gastrointestinal Verified 07/01/22 07:39 Upset Home Medications Medication Instructions Recorded Confirmed Type multivitamin 1 tablet PO QAM 12/31/19 06/14/22 History latanoprost 0.005 % eye drops 1 drp ophthalmic (eye) QPM 10/06/20 06/14/22 History clotrimazole 1 % topical cream See Rx Instructions .Route 11/07/21 06/14/22 History .COMPLEX PRN Skin Irritation lidocaine 4 % topical cream 1 applic topical TID PRN Pain 11/07/21 06/14/22 History triamcinolone acetonide 0.1 % See Rx Instructions .Route 11/07/21 06/14/22 History topical cream .COMPLEX PRN Rash olmesartan 40 mg tablet 40 mg PO QAM #90 tabs 03/25/22 06/14/22 Rx peg 3350-electrolytes 236 240 ml PO Q10M #4,000 mL 05/15/22 06/14/22 Rx gram-22.74 gram-6.74 gram-5.86 gram solution (Golytely) atorvastatin 20 mg tablet 20 mg PO DAILY 06/14/22 06/14/22 History calcium carb-ergocalciferol (vit 2 tablet PO DAILY 06/14/22 06/14/22 History D2) 600 mg calcium-200 unit tablet hydrochlorothiazide 25 mg tablet 25 mg PO DAILY 06/14/22 06/14/22 History omeprazole 20 mg capsule,delayed 20 mg PO DAILY 06/14/22 06/14/22 History release Patient hx anesthesia problems: none Family hx anesthesia problems: none Results Review: All pre-operative results and documents have been reviewed as part of the pre-operative evaluation. [facility] Past Medical History Medical History (Updated 06/27/22 @ 09:07 by Pat Morales DO) Basal cell carcinoma of chest wall Chronic kidney disease, stage 3 Diverticulosis Essential hypertension Gastroesophageal reflux disease Glaucoma Glaucoma Major depressive disorder, single episode, mild Metabolic syndrome Mixed hyperlipidemia Osteoarthritis Surgical History Surgical History (Updated 03/04/22 @ 12:10 by Kaykay Blair PA-C) History of basal cell carcinoma excision History of bladder suspension procedure History of cataract extraction History of colonoscopy History of dilation and curettage History of hysterectomy History of lumbar surgery History of tonsillectomy History of total knee arthroplasty (~11/2021) LEFT Family History Family History Grandparent Cerebrovascular accident Mother Carcinoma of colon Patient's mother is Father Family history of lung cancer Patient's father is Other Family history of elevated blood lipids Hypertension No family history of cardiovascular disease Social History Social History Social History: Surrogate decision maker: Alena Hardy, daughter. Code status: Full code. Smoking status: Never smoker Alcohol intake: current Alcohol use details: One alcoholic beverage a month Substance use: never Substance use type: does not use Living arrangements: with family Spiritual care concerns: No Anes - Eval Final PreProcedure Day of Procedure 07/01/22 07:57 Patient weight: overweight Heart: regular rate and rhythm Lungs: clear to auscultation Airway: Mallampati scale class II Neurological: alert and oriented Last oral intake: >/= 8 hours ASA classification: III Emergent: no A
--- NOTE | 2022-07-01 08:18 | PM.IMHP ---
H&P: HPI History of Present Illness Date/Time: 07/01/22 08:18 Chief Complaint: History of colon polyps, family history of colon cancer. Narrative: This is an 81-year-old white female patient who presents for screening colonoscopy. Patient states that her current weight appetite bowel movements are normal. She denies abdominal pain. She has had no bleeding. Patient's most recent colonoscopy 2015 was unremarkable. In 2006 she had an adenomatous colon polyp. Patient's mother had colon cancer. Patient presents today for screening colonoscopy. Review of Systems Review of Systems: Review of systems noncontributory. [facility] Past Medical History Medical History (Updated 07/01/22 @ 08:20 by Humphrey Joe MD) Basal cell carcinoma of chest wall Chronic kidney disease, stage 3 Diverticulosis Essential hypertension Gastroesophageal reflux disease Glaucoma Glaucoma Major depressive disorder, single episode, mild Metabolic syndrome Mixed hyperlipidemia Osteoarthritis Surgical History Surgical History (Updated 03/04/22 @ 12:10 by Kaykay Blair PA-C) History of basal cell carcinoma excision History of bladder suspension procedure History of cataract extraction History of colonoscopy History of dilation and curettage History of hysterectomy History of lumbar surgery History of tonsillectomy History of total knee arthroplasty (~11/2021) LEFT Family History Family History Grandparent Cerebrovascular accident Mother Carcinoma of colon Patient's mother is Father Family history of lung cancer Patient's father is Other Family history of elevated blood lipids Hypertension No family history of cardiovascular disease Social History Social History Social History: Surrogate decision maker: Alena Hardy, daughter. Code status: Full code. Smoking status: Never smoker Alcohol intake: current Alcohol use details: One alcoholic beverage a month Substance use: never Substance use type: does not use Living arrangements: with family Spiritual care concerns: No Meds Home Medications and Allergies Home Medications Medication Instructions Recorded Confirmed Type multivitamin 1 tablet PO QAM 12/31/19 06/14/22 History latanoprost 0.005 % eye drops 1 drp ophthalmic (eye) QPM 10/06/20 06/14/22 History clotrimazole 1 % topical cream See Rx Instructions .Route 11/07/21 06/14/22 History .COMPLEX PRN Skin Irritation lidocaine 4 % topical cream 1 applic topical TID PRN Pain 11/07/21 06/14/22 History triamcinolone acetonide 0.1 % See Rx Instructions .Route 11/07/21 06/14/22 History topical cream .COMPLEX PRN Rash olmesartan 40 mg tablet 40 mg PO QAM #90 tabs 03/25/22 06/14/22 Rx peg 3350-electrolytes 236 240 ml PO Q10M #4,000 mL 05/15/22 06/14/22 Rx gram-22.74 gram-6.74 gram-5.86 gram solution (Golytely) atorvastatin 20 mg tablet 20 mg PO DAILY 06/14/22 06/14/22 History calcium carb-ergocalciferol (vit 2 tablet PO DAILY 06/14/22 06/14/22 History D2) 600 mg calcium-200 unit tablet hydrochlorothiazide 25 mg tablet 25 mg PO DAILY 06/14/22 06/14/22 History omeprazole 20 mg capsule,delayed 20 mg PO DAILY 06/14/22 06/14/22 History release Allergies Allergy/AdvReac Type Severity Reaction Status Date / Time penicillin V Allergy Intermediate Rash Verified 07/01/22 07:39 quinapril Allergy Mild cough Verified 07/01/22 07:39 ciprofloxacin AdvReac Mild Gastrointestinal Verified 07/01/22 07:39 Upset Vital Signs Vital Signs - 24 hr 07/01/22 07:41 Temperature 97.4 F L Pulse Rate 66 Respiratory Rate 18 Blood Pressure 149/80 H Pulse Oximetry 100 Oxygen Delivery Room Air Exam Narrative: Physical exam reveals patient to be alert. Vital signs stable. HEENT exam is unremarkable. Patient is anicteric. Lungs are clear
[2022-07-01 08:54] VITALS: BP 112/43; PULSE 68; RESP 18; O2SAT 96
[2022-07-01 09:04] VITALS: BP 111/58; PULSE 68; RESP 16; O2SAT 97
[2022-07-01 09:14] VITALS: BP 127/68; PULSE 70; RESP 18; O2SAT 97
== END 2022-07-01 09:23 | disposition home or self-care (01) ==
PROVIDERS: PCP Family Medicine; Visit Provider Internal Medicine Gastroenterology
PROC: 0DJD8ZZ Inspection of Lower Intestinal Tract, Via Natural or Artificial Opening Endoscopic (ICD-10-PCS; CPT 45378; principal; 2022-07-01 08:30)
DX: Z12.11 Encounter for screening for malignant neoplasm of colon (principal); K64.8 Other hemorrhoids; K57.30 Diverticulosis of large intestine without perforation or abscess without bleeding; Z80.0 Family history of malignant neoplasm of digestive organs; I12.9 Hypertensive chronic kidney disease with stage 1 through stage 4 chronic kidney disease, or unspecified chronic kidney disease; N18.30 Chronic kidney disease, stage 3 unspecified; K21.9 Gastro-esophageal reflux disease without esophagitis; E78.2 Mixed hyperlipidemia; H40.9 Unspecified glaucoma
CPT/HCPCS: G0105; J2704; J3370; J7120

== ENCOUNTER → 2022-09-03 10:18 | Outpatient (CLI) | payer MEDICARE, OTHER, SELFPAY ==
--- NOTE | ~2022-09-03 | XR_ITS ---
EXAM: XR abdomen/kub 1V DATE: 09/03/2022 10:31 HISTORY: nausea, upper central abd pain 2 months, no surg . COMPARISON: X-ray and CT 06/20/2014. FINDINGS: Senescent changes in the lung bases. Normal bowel gas pattern. No organomegaly. Pelvic phl eboliths. Vascular calcification.. Lumbar degenerative disc disease. Osteitis pubis. Bilateral hip os teoarthritis. IMPRESSION: No radiographic evidence of obstruction or ileus. Reviewed, dictated and finalized at location K.
== END ==
PROVIDERS: PCP Family Medicine; Visit Provider Family Medicine
DX: R10.13 Epigastric pain (principal); R11.0 Nausea
CPT/HCPCS: 74018

== ENCOUNTER 2022-09-23 07:24 | Outpatient (CLI) | payer MEDICARE, OTHER, SELFPAY ==
--- NOTE | ~2022-09-23 | CT_ITS ---
EXAMINATION: CT abdomen pelvis w con INDICATION: Abdominal pain TECHNIQUE: Computed tomographic images of the abdomen and pelvis were obtained after the administrati on of 100 cc of Omnipaque 350 intravenous contrast. The dose-length product (DLP) was 493.19 mGy-cm. Automated exposure control and iterative reconstruction technique were employed. COMPARISON: 06/20/2014 FINDINGS: Minimal dependent atelectasis is present in the lung bases. The heart size is normal. Punct ate calcifications in an otherwise normal spleen likely represent healed granulomatous disease. Cysts of the liver measure up to 12 mm in the right hepatic lobe. The pancreas, gallbladder, and adrenal g lands are normal. Cysts of the kidneys measure up to 9 mm on the left. No pathologically enlarged abd ominal or pelvic lymph nodes are identified. There is no free intraperitoneal gas or evidence of judit l obstruction. Colonic diverticulosis is present without evidence of diverticulitis. The cecum is loc ated in the left lower quadrant. The appendix is normal. There is severe lumbar spondylosis. IMPRESSION: 1. No CT correlate for the patient's symptoms. Diverticulosis without evidence of diverticulitis. Reviewed, dictated and finalized at location B. 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
== END 2022-09-23 07:25 | disposition home or self-care (01) ==
PROVIDERS: PCP Family Medicine; Visit Provider Nurse Practitioner Family
DX: R10.9 Unspecified abdominal pain (principal)
CPT/HCPCS: 74177; Q9967

== ENCOUNTER 2022-12-24 00:58 | Day surgery (SDC) | payer MEDICARE, OTHER, SELFPAY ==
[2022-11-04 13:24] VITALS: BMI 28.3
[2022-12-05 12:47] VITALS: BMI 28.3
[2022-12-24 07:49] VITALS: BP 146/72; PULSE 73; RESP 18; TEMP 36.2; O2SAT 99
[2022-12-24] MEDS: LACTATED RINGERS 1,000 ML 150 ML IV CONT (07:58)
--- NOTE | 2022-12-24 08:22 | PM.HPGS ---
History of Present Illness History of Present Illness Consent: Risks, benefits, and alternatives have been discussed and questions answered. Patient agrees to proceed with procedure. Chief complaint: Nausea Narrative: Shama Presley is a 82 year old female Presents for EGD. Patient has had nausea and epigastric pain primarily over the last several months. She has occasionally has low abdominal cramping. Colonoscopy in June 2022 revealed only diverticulosis and hemorrhoids. Patient has a known history of acid reflux. Previous dose of omeprazole 20mg p.o. daily has been advanced to40mg p.o. daily with some modest improvement in symptoms. Patient denies any dysphagia. No weight loss or bleeding. Symptoms are sometimes aggravated by spicy foods such as tomatoes. Patient presents today for EGD. Review of Systems Review of Systems: Review of systems noncontributory. [facility] Past Medical History Medical History Abdominal pain Basal cell carcinoma of chest wall Chronic kidney disease, stage 3 Diverticulosis Essential hypertension Gastroesophageal reflux disease Glaucoma Glaucoma Major depressive disorder, single episode, mild Metabolic syndrome Mixed hyperlipidemia Osteoarthritis Surgical History Surgical History History of basal cell carcinoma excision History of bladder suspension procedure History of cataract extraction History of colonoscopy History of dilation and curettage History of hysterectomy History of lumbar surgery History of tonsillectomy History of total knee arthroplasty (~11/2021) LEFT Family History Family History Grandparent Cerebrovascular accident Mother Carcinoma of colon Patient's mother is Father Family history of lung cancer Patient's father is Other Family history of elevated blood lipids Hypertension No family history of cardiovascular disease Social History Social History (Updated 10/22/22 @ 11:14 by Thania Cook [facility]) Social History: Surrogate decision maker: Alena Hardy, daughter. Code status: Full code. Smoking status: Never smoker Alcohol intake: current Alcohol use details: One alcoholic beverage a month Substance use: never Substance use type: does not use Lack of Transportation: No Lack of Food: Never True Current Housing: I Have Housing Concerned About Future Housing: No Difficulty Paying Gas/Electric Bills: No Difficulty Paying for Meds: No Currently Unemployed: No Education: High School Diploma/GED Difficulty w/ Childcare or Family Care: No Living arrangements: with family Occupation/Education: retired Spiritual care concerns: No Meds Home Medications and Allergies Home Medications Medication Instructions Recorded Confirmed Type multivitamin 1 tablet PO QAM 12/31/19 12/05/22 History latanoprost 0.005 % eye drops 1 drp ophthalmic (eye) QPM 10/06/20 12/05/22 History clotrimazole 1 % topical cream See Rx Instructions .Route 11/07/21 12/05/22 History .COMPLEX PRN Skin Irritation lidocaine 4 % topical cream 1 applic topical TID PRN Pain 11/07/21 12/05/22 History triamcinolone acetonide 0.1 % See Rx Instructions .Route 11/07/21 12/05/22 History topical cream .COMPLEX PRN Rash calcium carb-ergocalciferol (vit 2 tablet PO DAILY 06/14/22 12/05/22 History D2) 600 mg calcium-200 unit tablet hydrochlorothiazide 25 mg tablet 25 mg PO DAILY #90 tabs 09/18/22 12/05/22 Rx olmesartan 40 mg tablet 40 mg PO DAILY #90 tabs 09/23/22 12/05/22 Rx omeprazole 40 mg capsule,delayed 40 mg PO DAILY #90 caps 12/02/22 12/05/22 Rx release atorvastatin 20 mg tablet See Rx Instructions .Route 12/23/22 Rx .COMPLEX #90 tabs Allergies Allergy/AdvReac Type Severity Reaction Status Date / Time
--- NOTE | 2022-12-24 08:27 | WPDANESEPPF ---
Anes - Initial Pre Proc Eval Procedure: Operation Date: 12/24/22 09:00 Proposed Procedures p Esophagogastroduodenoscopy - Humphrey Joe MD Date/Time: 12/24/22 08:27 Surgeon: Humphrey Joe MD Pre Op Diagnosis: Nausea Patient Data Age: 82 Gender: F Height: 1.6 m Weight: 73.8 kg Last Vital Signs Temp 97.2 F L 12/24/22 07:49 Pulse 73 12/24/22 07:49 Resp 18 12/24/22 07:49 BP 146/72 H 12/24/22 07:49 Pulse Ox 99 12/24/22 07:49 O2 Del Method Room Air 12/24/22 07:49 Allergies Allergy/AdvReac Type Severity Reaction Status Date / Time penicillin V Allergy Intermediate Rash Verified 12/24/22 07:48 quinapril Allergy Mild cough Verified 12/24/22 07:48 ciprofloxacin AdvReac Mild Gastrointestinal Verified 12/24/22 07:48 Upset Home Medications Medication Instructions Recorded Confirmed Type multivitamin 1 tablet PO QAM 12/31/19 12/05/22 History latanoprost 0.005 % eye drops 1 drp ophthalmic (eye) QPM 10/06/20 12/05/22 History clotrimazole 1 % topical cream See Rx Instructions .Route 11/07/21 12/05/22 History .COMPLEX PRN Skin Irritation lidocaine 4 % topical cream 1 applic topical TID PRN Pain 11/07/21 12/05/22 History triamcinolone acetonide 0.1 % See Rx Instructions .Route 11/07/21 12/05/22 History topical cream .COMPLEX PRN Rash calcium carb-ergocalciferol (vit 2 tablet PO DAILY 06/14/22 12/05/22 History D2) 600 mg calcium-200 unit tablet hydrochlorothiazide 25 mg tablet 25 mg PO DAILY #90 tabs 09/18/22 12/05/22 Rx olmesartan 40 mg tablet 40 mg PO DAILY #90 tabs 09/23/22 12/05/22 Rx omeprazole 40 mg capsule,delayed 40 mg PO DAILY #90 caps 12/02/22 12/05/22 Rx release atorvastatin 20 mg tablet See Rx Instructions .Route 12/23/22 Rx .COMPLEX #90 tabs Patient hx anesthesia problems: none Family hx anesthesia problems: none Results Review: All pre-operative results and documents have been reviewed as part of the pre-operative evaluation. [facility] Past Medical History Medical History Abdominal pain Basal cell carcinoma of chest wall Chronic kidney disease, stage 3 Diverticulosis Essential hypertension Gastroesophageal reflux disease Glaucoma Glaucoma Major depressive disorder, single episode, mild Metabolic syndrome Mixed hyperlipidemia Osteoarthritis Surgical History Surgical History History of basal cell carcinoma excision History of bladder suspension procedure History of cataract extraction History of colonoscopy History of dilation and curettage History of hysterectomy History of lumbar surgery History of tonsillectomy History of total knee arthroplasty (~11/2021) LEFT Family History Family History Grandparent Cerebrovascular accident Mother Carcinoma of colon Patient's mother is Father Family history of lung cancer Patient's father is Other Family history of elevated blood lipids Hypertension No family history of cardiovascular disease Social History Social History (Updated 10/22/22 @ 11:14 by Thania Cook [facility]) Social History: Surrogate decision maker: Alena Hardy, daughter. Code status: Full code. 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
[2022-12-24 09:08] VITALS: BP 157/105; PULSE 86; RESP 19; O2SAT 99
[2022-12-24 09:18] VITALS: BP 171/94; PULSE 70; RESP 21; O2SAT 97
[2022-12-24 09:28] VITALS: BP 182/97; PULSE 71; RESP 17; O2SAT 100
== END 2022-12-24 09:36 | disposition home or self-care (01) ==
PROVIDERS: PCP Family Medicine; Visit Provider Internal Medicine Gastroenterology
PROC: 0DJ08ZZ Inspection of Upper Intestinal Tract, Via Natural or Artificial Opening Endoscopic (ICD-10-PCS; CPT 43235; principal; 2022-12-24 09:00)
DX: K21.9 Gastro-esophageal reflux disease without esophagitis (principal); I12.9 Hypertensive chronic kidney disease with stage 1 through stage 4 chronic kidney disease, or unspecified chronic kidney disease; N18.30 Chronic kidney disease, stage 3 unspecified; E78.2 Mixed hyperlipidemia; F32.A Depression, unspecified; H40.9 Unspecified glaucoma
CPT/HCPCS: 43239; 87081; J2704; J7120

== ENCOUNTER 2023-01-06 10:27 | Outpatient (CLI) | payer MEDICARE, OTHER, SELFPAY ==
--- NOTE | ~2023-01-06 | US_ITS ---
EXAMINATION: US venous doppler [facility] DATE: 01/06/2023 10:59 INDICATION: Right lower limb swelling TECHNIQUE: Grayscale ultrasound images without and with compression and Doppler ultrasound images of the left lower extremity veins were obtained. COMPARISON: None. FINDINGS: The visualized portions of left common femoral vein, profunda (deep) femoral vein, femoral vein, popl iteal vein, peroneal veins, posterior tibial veins, gastrocnemius vein and greater saphenous vein out flow are patent. IMPRESSION: 1. No deep venous thrombosis in the left lower limb. Reviewed, dictated and finalized at location A. ENGINEER
== END 2023-01-06 10:28 | disposition home or self-care (01) ==
PROVIDERS: PCP Family Medicine; Visit Provider Orthopaedic Surgery
DX: R22.42 Localized swelling, mass and lump, left lower limb (principal)
CPT/HCPCS: 93971

== ENCOUNTER 2023-02-08 22:26 | Emergency (ER) | payer MEDICARE, OTHER, SELFPAY ==
[2023-02-08] VITALS (13 sets, daily range): BP systolic 122–186; BP diastolic 76–101; PULSE 81–140; RESP 12–22; TEMP 36.6; O2SAT 95
--- NOTE | ~2023-02-08 | XR_ITS ---
EXAMINATION: XR chest 2V DATE: 02/08/2023 22:57 INDICATION: Shortness of breath TECHNIQUE: PA and lateral views of the chest are obtained. COMPARISON: 02/20/2008 FINDINGS: The lungs are free of acute opacities. No pleural effusion or pneumothorax. The cardiomedia stinal silhouette is normal. There are bridging osteophytes at multiple levels in the spine, consiste nt with diffuse idiopathic skeletal hyperostosis (DISH). IMPRESSION: 1. No acute cardiopulmonary abnormality. Reviewed, dictated and finalized at location A.
--- NOTE | 2023-02-08 22:36 | ECG_ITS ---
Measurements Intervals [place] Rate: 80 P: MA: 0 QRS: 12 QRSD: 91 T: 10 QT: 354 QTc: 410 Interpretive Statements ATRIAL FLUTTER/TACHYCARDIA WITH NORMAL VENTRICULAR RESPONSE BORDERLINE ST-T WAVE ABNORMALITY- LAT/HIGH LAT LEADS BASELINE ARTIFACT- II, V3-V5 ABNORMAL ECG NO PREVIOUS ECG AVAILABLE FOR COMPARISON Electronically Signed On 02-09-2023 7:38:32 CDT by Alton Mireles D.O.
--- NOTE | 2023-02-08 22:51 | ED.ARRPALP ---
HPI - Arrhythmia/Palpitations General Chief Complaint: Arrhythmia/Palpitations Stated Complaint: SUDDEN ONSET ELEVATED HEART RATE Time Seen by Provider: 02/08/23 22:37 History of Present Illness HPI narrative: This is an 82-year-old female, with past medical history of hypertension, who presents to the emergency department with palpitations and dyspnea. The patient states approximately 30 minutes prior to arrival she was at rest, when she noticed sudden onset palpitations and chest pressure rated 5/10. She states she has had 1 similar episode 2 years ago that resolved on its own. Related Data Home Medications Medication Instructions Recorded Confirmed multivitamin 1 tablet PO QAM 12/31/19 01/29/23 latanoprost 0.005 % eye drops 1 drp ophthalmic (eye) QPM 10/06/20 01/29/23 clotrimazole 1 % topical cream See Rx Instructions .Route 11/07/21 01/29/23 .COMPLEX PRN Skin Irritation lidocaine 4 % topical cream 1 applic topical TID PRN Pain 11/07/21 01/29/23 triamcinolone acetonide 0.1 % See Rx Instructions .Route 11/07/21 01/29/23 topical cream .COMPLEX PRN Rash calcium carb-ergocalciferol (vit 2 tablet PO DAILY 06/14/22 01/29/23 D2) 600 mg calcium-200 unit tablet Allergies Allergy/AdvReac Type Severity Reaction Status Date / Time penicillin V Allergy Intermediate Rash Verified 02/08/23 22:38 quinapril Allergy Mild cough Verified 02/08/23 22:38 ciprofloxacin AdvReac Mild Gastrointestinal Verified 02/08/23 22:38 Upset Review of Systems Review of Systems: CONSTITUTIONAL: Denies fever, chills, or sweats. EYES: Denies visual changes, redness, or discharge. ENT: Denies rhinorrhea, congestion, sore throat, or otalgia. CARDIOVASCULAR: Chest pressure, palpitations denies edema. RESPIRATORY: Dyspnea, improved denies cough GASTROINTESTINAL: Denies abdominal pain, nausea, vomiting, or diarrhea. GENITOURINARY: Denies dysuria or hematuria. SKIN: Denies rash or itching. MUSCULOSKELETAL: Denies back pain, joint pain, or myalgia. NEUROLOGIC: Denies headache, numbness, dizziness, or weakness. PSYCHIATRIC: Denies anxiety or depression. [facility] Past Medical History Medical History Abdominal pain Basal cell carcinoma of chest wall Chronic kidney disease, stage 3 Diverticulosis Essential hypertension Gastroesophageal reflux disease Glaucoma Glaucoma Major depressive disorder, single episode, mild Metabolic syndrome Mixed hyperlipidemia Osteoarthritis Surgical History Surgical History History of basal cell carcinoma excision History of bladder suspension procedure History of cataract extraction History of colonoscopy History of dilation and curettage History of hysterectomy History of lumbar surgery History of tonsillectomy History of total knee arthroplasty (~11/2021) LEFT Family History Family History Grandparent Cerebrovascular accident Mother Carcinoma of colon Patient's mother is Father Family history of lung cancer Patient's father is Other Family history of elevated blood lipids Hypertension No family history of cardiovascular disease Social History Social History Social History: Surrogate decision maker: Alena Hardy, daughter. Code status: Full code. Smoking status: Never smoker Alcohol intake: current Alcohol use details: One alcoholic beverage a month Substance use: never Substance use type: does not use Lack of Transportation: No Lack of Food: Never True Current Housing: I Have Housing Concerned About Future Housing: No Difficulty Paying Gas/Electric Bills: No Difficulty Paying for Meds: No Currently Unemployed: No Education: High School Diploma/GED Difficulty w/ Childcare or Family Care: No [facility]
[2023-02-08] MEDS: METOPROLOL TARTRATE 50 MG TAB PO (23:03)
[2023-02-08] MEDS: ASPIRIN 81 MG CHEWABLE TABLET 324 MG PO (23:03)
[2023-02-08] MEDS: METOPROLOL TARTRATE INJ 5 MG/5 ML VIAL IV PUSH (23:08)
[2023-02-08 23:23] LABS: Basophils Absolute Auto 0.1 K/mm3 (0.0-0.1); Basophils Percent Auto 1.5 % (0.2-1.2); Eosinophils Absolute Auto 0.1 K/mm3 (0-0.3); Hematocrit 34.7 % (37.0-47.0); Hemoglobin 11.5 g/dL (12.0-15.0); Immature Granulocyte Absolute 0.01 K/mm3 (0.00-0.031); Immature Granulocyte Percent A 0.2 % (0-0.5); Lymphocytes Percent Auto 32.4 % (18.3-44.2); Mean Corpuscular HGB Conc 33.1 g/dl (32-36); Mean Corpuscular Hemoglobin 30.7 pg (26-34); Mean Corpuscular Volume 92.8 fl (80-100); Monocytes Absolute Auto 0.5 K/mm3 (0.1-0.6); Monocytes Percent Auto 13.2 % (2.6-8.5); Neutrophils Percent Auto 49.7 % (45.5-73.1); Platelet Count Result 182 k/mm3 (150-375); Red Blood Count 3.74 M/mm3 (4.2-5.4); Red Cell Distribution Width 14.4 % (11.5-14.5)
[2023-02-08 23:36] LABS: Alanine Aminotransferase 20 U/L (6-35); Alkaline Phosphatase 85 U/L (38-126); Anion Gap 6 mmol/L (8-16); Aspartate Amino Transferase 62 U/L (14-36); Bilirubin,Total 0.4 mg/dL (0.2-1.3); Blood Urea Nitrogen 25 mg/dL (7-17); Calcium 8.9 mg/dL (8.4-10.2); Carbon Dioxide 26 mmol/L (22-30); Chloride 110 mmol/L (98-107); Estimated CRCL calculation 36 ml/min; Estimated Glomerular Filt Rate 53; Glucose 128 mg/dL (65-110); Lipase 330 U/L (23-300); Potassium 3.3 mmol/L (3.4-5.0); Sodium 142 mmol/L (137-145)
[2023-02-08 23:42] LABS: Partial Thromboplastin Time 26.5 SECONDS (22.3-36.8); Prothrombin Time 12.4 Seconds (11.1-14.7)
[2023-02-08 23:46] LABS: Troponin I 0.014 ng/mL (0.000-0.034)
[2023-02-08] MEDS: MAGNESIUM SULF 2 GM/WATER 50ML 2 GM/50 ML BAG IVPB (23:52)
[2023-02-08] MEDS: POTASSIUM CHLORIDE 20 MEQ PACKET (FOR LIQUID) 40 MEQ PO (23:52)
[2023-02-09 00:06] VITALS: PULSE 86; RESP 18
[2023-02-09 00:15] VITALS: PULSE 82; RESP 14
[2023-02-09 00:30] VITALS: PULSE 82; RESP 20
[2023-02-09 00:32] VITALS: PULSE 83; RESP 13
[2023-02-09 00:45] VITALS: PULSE 84
[2023-02-09] MEDS: APIXABAN 2.5 MG TABLET PO (01:02)
== END 2023-02-09 01:08 | disposition home or self-care (01) ==
PROVIDERS: Emergency Medicine; Emergency Provider Preventive Medicine Aerospace Medicine; PCP Family Medicine
DX: I48.92 Unspecified atrial flutter (principal); N18.30 Chronic kidney disease, stage 3 unspecified; I12.9 Hypertensive chronic kidney disease with stage 1 through stage 4 chronic kidney disease, or unspecified chronic kidney disease; K21.9 Gastro-esophageal reflux disease without esophagitis; E78.2 Mixed hyperlipidemia
CPT/HCPCS: 36415; 71046; 80053; 83690; 84443; 84484; 85025; 85610; 85730; 93005; 96365; 96375; 99284; A9270; J3475

== ENCOUNTER 2023-04-08 07:33 | Outpatient (CLI) | payer MEDICARE, OTHER, SELFPAY ==
--- NOTE | ~2023-04-08 | MM_ITS ---
EXAMINATION: MM screening [facility] BI w quintin HISTORY: Screening mammogram TECHNIQUE: Craniocaudal and mediolateral oblique 3-D tomosynthesis images were obtained and synthetic 2-D images were generated. CAD analysis was submitted and interpreted. COMPARISON: 02/06/2022, 01/19/2021, 01/14/2020 BREAST PARENCHYMAL COMPOSITION: There are scattered areas of fibroglandular density. FINDINGS: No suspicious mass, calcification, or architectural distortion are identified in either aaliyah ast to suggest malignancy. There has been no suspicious interval change. IMPRESSION: 1. No mammographic evidence of malignancy. 2. Recommend routine screening mammography while the patient remains in good health. BI-RADS Category 1: Negative Reviewed, dictated and finalized at location A. IMPRESSION: 1. No mammographic evidence of malignancy. 2. Recommend routine screening mammography while the patient remains in good he alth. BI-RADS Category 1: Negative
== END 2023-04-08 07:34 | disposition home or self-care (01) ==
PROVIDERS: PCP Family Medicine; Visit Provider Family Medicine
DX: Z12.31 Encounter for screening mammogram for malignant neoplasm of breast (principal)
CPT/HCPCS: 77063; 77067

== ENCOUNTER 2023-04-08 09:37 | Emergency (ER) | payer MEDICARE, OTHER, SELFPAY ==
[2023-04-08] VITALS (7 sets, daily range): BP systolic 149–181; BP diastolic 65–92; PULSE 53–60; RESP 12–23; TEMP 36.3; O2SAT 95–98
--- NOTE | ~2023-04-08 | XR_ITS ---
EXAMINATION: XR knee RT min 4V, XR knee LT min 4V DATE: 04/08/2023 10:12 INDICATION: Bilateral knee pain post fall TECHNIQUE: 1. Anteroposterior, 2 oblique and crosstable lateral views of the right knee were obtained. 2. Anteroposterior, 2 oblique and crosstable lateral views of the left knee were obtained. COMPARISON: None. FINDINGS: Normal alignment at the right knee. Left total knee arthroplasty with patellar resurfacing is also an essentially anatomic alignment with no periprosthetic lucency to suggest loosening. No fracture at e ither knee. Chondrocalcinosis at the right medial and lateral components of the right knee. Joint spa tavia at the right knee appear relatively preserved but joint space narrowing can be underestimated on nonweightbearing imaging. Small marginal osteophytes all 3 compartments of the right knee consistent with at least mild osteoarthritis. Moderate-sized enthesophyte at the proximal pole of the right curtis lla. Stable small bilateral knee joint effusions but without evident layering lipohemarthrosis. There is prepatellar soft tissue swelling on the left. IMPRESSION: 1. Possible small knee joint effusion but no acute osseous abnormality at either knee. 2. Chondrocalcinosis and at least mild tricompartmental osteoarthritis at the right knee. 3. Expected appearance of a left total knee arthroplasty with patellar resurfacing. Reviewed, dictated and finalized at location A. IMPRESSION: 1. Possible small knee joint effusion but no acute osseous abnormality at eithe r knee. 2. Chondrocalcinosis and at least mild tricompartmental osteoarthritis at the r ight knee. 3. Expected appearance of a left total knee arthroplasty with patellar resurfac ing.
--- NOTE | ~2023-04-08 | CT_ITS ---
EXAMINATION: CT brain wo con DATE: 04/08/2023 10:03 INDICATION: Head injury. TECHNIQUE: Computed tomography (CT) of the head was performed without intravenous contrast. The mA wa s adjusted according to patient size. Iterative reconstruction technique was employed. The dose-lengt h product was 605.33 mGy-cm. COMPARISON: Head CT 08/23/2014 FINDINGS: There are scattered areas of low attenuation in the cerebral white matter. There is no intr acranial hemorrhage, acute infarction, or abnormal intracranial mass lesion. The ventricles are keyon l in size. There is mild mucosal thickening in the paranasal sinuses. There are likely changes of ocu lar lens replacement surgeries. The mastoid air cells are normal. IMPRESSION: 1. Moderate nonspecific cerebral white matter disease, which likely represents chronic small vessel i schemic disease, worsened from 08/23/2014. Reviewed, dictated and finalized at location A. IMPRESSION: 1. Moderate nonspecific cerebral white matter disease, which likely represents chronic small vessel ischemic disease, worsened from 08/23/2014.
--- NOTE | ~2023-04-08 | CT_ITS ---
EXAMINATION: CT facial bones wo con DATE: 04/08/2023 10:57 INDICATION: Fall with head injury TECHNIQUE: Computed tomography (CT) of the facial bones and maxillofacial region was performed withou t intravenous contrast. Coronal reconstructions were obtained. Automated exposure control and iterati ve reconstruction technique were employed. The dose-length product was 305.23 mGy-cm. COMPARISON: None. FINDINGS: Severe osteoarthritis at the bilateral temporomandibular joints with calcific debris and small bone f ragments at the recess of the joint spaces. There are also mandibular mamadou. No maxillofacial fracture s. Specifically the nasal bones, mandible, zygomatic arches and herron of the orbits and paranasal sin uses are all intact. Changes of bilateral intraocular lens replacement. Orbits are otherwise normal. Nasal septum is midline. Mild mucosal thickening at the floor of the left maxillary sinus. Additional mild mucosal thickening associated with small right-sided infraorbital ethmoid air cells (Luis víctor ls). Suggestion of a prior antral window procedure at the medial wall of the left maxillary sinus. Mi ddle ear cavities and visualized portions of the mastoid air cells are clear. Severe cervical spondyl osis. Maxillofacial soft tissues are unremarkable. IMPRESSION: 1. No maxillofacial fractures. Reviewed, dictated and finalized at location A.
--- NOTE | ~2023-04-08 | CT_ITS ---
EXAMINATION: CT cervical spine wo con DATE: 04/08/2023 10:03 INDICATION: Head injury. TECHNIQUE: Computed tomography (CT) of the cervical spine was performed without intravenous contrast. Automated exposure control and iterative reconstruction technique were employed. The dose-length pro duct was 206.05 mGy-cm. COMPARISON: None FINDINGS: There is mild scarring at the lung apices. Bone alignment is normal. Vertebral body heights are normal. There is severely decreased disc height from C4-C5 through C6-C7. There are bridging end plate osteophytes from C4 to T1. The following disc levels are specifically discussed: C2-C3: There is mild bilateral uncovertebral joint osteoarthritis. There is ankylosis of the facet isadora ints with moderate right and severe left hypertrophy. There is mild left neural foraminal stenosis. T here is no central canal stenosis. C3-C4: There is moderate bilateral uncovertebral joint osteoarthritis. There is severe bilateral face t joint osteoarthritis. There is mild right and moderate left neural foraminal stenosis. There is sev ere central canal stenosis. C4-C5: There is ankylosis of the uncovertebral joints with severe hypertrophy. There is ankylosis of the facet joints with severe right and moderate left hypertrophy. There is moderate right and mild le ft neural foraminal stenosis. There is mild central canal stenosis. C5-C6: There is ankylosis of the uncovertebral joints with severe hypertrophy. There is ankylosis of the facet joints with severe hypertrophy. There is moderate bilateral neural foraminal stenosis. Ther e is mild central canal stenosis. C6-C7: There is ankylosis of the uncovertebral joints with mild right and moderate left hypertrophy. There is ankylosis of the facet joints with mild right and severe left hypertrophy. There is mild ifeoma ateral neural foraminal stenosis. There is mild central canal stenosis. C7-T1: There is mild bilateral uncovertebral joint osteoarthritis. There is severe bilateral facet isadora int osteoarthritis. There is mild bilateral neural foraminal stenosis. There is no central canal sten osis. IMPRESSION: 1. No fracture. 2. 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 Otherwise moderate cervical spondylosis. 3. Bridging endplate osteophytes from C4 to T1. Reviewed, dictated and finalized at location A. IMPRESSION: 1. No fracture. 2. 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 Otherwise moderate cervical spondylo sis. 3. Bridging endplate osteophytes from C4 to T1.
--- NOTE | 2023-04-08 10:28 | ED.FALL ---
HPI - Fall General Chief Complaint: Fall Stated Complaint: fall Time Seen by Provider: 04/08/23 09:54 History of Present Illness HPI Narrative: 82-year-old female with a history of CKD, hyperlipidemia, hypertension reports for evaluation after a fall that occurred just prior to arrival. 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 States she landed on her knees and on her face. She is on Eliquis. Patient is reporting pain to her bilateral knees, upper left lip and left eyebrow with a small laceration. She denies chest pain, shortness of breath, focal numbness or weakness, dizziness, back pain or neck pain, hip pain. She is unsure when her last tetanus shot was. Related Data Home Medications Medication Instructions Recorded Confirmed latanoprost 0.005 % eye drops 1 drp ophthalmic (eye) QPM 10/06/20 03/10/23 clotrimazole 1 % topical cream See Rx Instructions .Route 11/07/21 03/10/23 .COMPLEX PRN Skin Irritation lidocaine 4 % topical cream 1 applic topical TID PRN Pain 11/07/21 03/10/23 triamcinolone acetonide 0.1 % See Rx Instructions .Route 11/07/21 03/10/23 topical cream .COMPLEX PRN Rash calcium carb-ergocalciferol (vit 2 tablet PO DAILY 06/14/22 03/10/23 D2) 600 mg calcium-200 unit tablet apixaban 5 mg tablet (Eliquis) 5 mg PO BID 03/10/23 03/10/23 Allergies Allergy/AdvReac Type Severity Reaction Status Date / Time penicillin V Allergy Intermediate Rash Verified 03/10/23 09:47 quinapril Allergy Mild cough Verified 03/10/23 09:47 ciprofloxacin AdvReac Mild Gastrointestinal Verified 03/10/23 09:47 Upset Review of Systems Review of Systems: CONSTITUTIONAL: Denies fever, chills EYES: Denies visual changes, redness, or discharge. ENT: Denies rhinorrhea, congestion, sore throat, or otalgia. CARDIOVASCULAR: Denies chest pain, palpitations, or edema. RESPIRATORY: Denies cough or dyspnea. GASTROINTESTINAL: Denies abdominal pain, nausea, vomiting, or diarrhea. GENITOURINARY: Denies dysuria or hematuria. SKIN: See HPI MUSCULOSKELETAL: See HPI NEUROLOGIC: Denies headache, numbness, dizziness, or weakness. PSYCHIATRIC: Denies anxiety or depression. [facility] Past Medical History Medical History Abdominal pain Basal cell carcinoma of chest wall Chronic kidney disease, stage 3 Diverticulosis Essential hypertension Gastroesophageal reflux disease Glaucoma Glaucoma Major depressive disorder, single episode, mild Metabolic syndrome Mixed hyperlipidemia Osteoarthritis Surgical History Surgical History History of basal cell carcinoma excision History of bladder suspension procedure History of cataract extraction History of colonoscopy History of dilation and curettage History of hysterectomy History of lumbar surgery History of tonsillectomy History of total knee arthroplasty (~11/2021) LEFT Family History Family History Grandparent Cerebrovascular accident Mother Carcinoma of colon Patient's mother is Father Family history of lung cancer Patient's father is Other Family history of elevated blood lipids Hypertension No family history of cardiovascular disease Social History Social History Social History: Surrogate decision maker: Alena Hardy, daughter. Code status: Full code. Smoking status: Never smoker Alcohol intake: current Alcohol use details: One alcoholic beverage a month Substance use: never Substance use type: does not use Lack of Transportation: No Lack of Food: Never True Current Housing: I Have Housing Concerned About Future Housing: No Difficulty Paying Gas/Electric Bills: No Difficulty Paying for Meds: No Currently Unem
[2023-04-08] MEDS: TETANUS,DIPHTHERIA,AC PERTUSSIS ADULT (0.5 ML) BOOSTRIX IM (10:30)
[2023-04-08] MEDS: ACETAMINOPHEN 500 MG TABLET 1000 MG PO (11:00)
== END 2023-04-08 11:30 | disposition home or self-care (01) ==
PROVIDERS: Emergency Provider Physician Assistant; PCP Family Medicine
DX: S01.112A Laceration without foreign body of left eyelid and periocular area, initial encounter (principal); Z23 Encounter for immunization; I12.9 Hypertensive chronic kidney disease with stage 1 through stage 4 chronic kidney disease, or unspecified chronic kidney disease; N18.30 Chronic kidney disease, stage 3 unspecified; K21.9 Gastro-esophageal reflux disease without esophagitis; E88.81 Metabolic syndrome and other insulin resistance; E78.2 Mixed hyperlipidemia; H40.9 Unspecified glaucoma; M17.11 Unilateral primary osteoarthritis, right knee; Z96.652 Presence of left artificial knee joint; Z85.828 Personal history of other malignant neoplasm of skin; Z98.49 Cataract extraction status, unspecified eye; Z90.710 Acquired absence of both cervix and uterus; R90.82 White matter disease, unspecified; M47.812 Spondylosis without myelopathy or radiculopathy, cervical region; M48.02 Spinal stenosis, cervical region; M11.261 Other chondrocalcinosis, right knee; W01.0XXA Fall on same level from slipping, tripping and stumbling without subsequent striking against object, initial encounter
CPT/HCPCS: 70450; 70486; 72125; 73564; 77063; 77067; 90471; 90715; 99284; A9270

== ENCOUNTER 2023-10-30 18:23 | Emergency (ER) | payer MEDICARE, OTHER, SELFPAY ==
[2023-10-30 18:35] VITALS: BP 180/90; PULSE 70; RESP 16; TEMP 36.5; O2SAT 100
--- NOTE | 2023-10-30 18:35 | ED.FALL ---
HPI - Fall General Chief Complaint: Fall Stated Complaint: Fall/Injured Nose Time Seen by Provider: 10/30/23 18:35 Source: patient and RN notes reviewed Mode of arrival: ambulatory Limitations: no limitations History of Present Illness HPI Narrative: 83 y/o female presented for c/o pain to nose after fall outside today. States she tripped while her hands were full, and struck her nose on the pavement. Her glasses scraped the bridge of her nose. States she had large amount of bleeding from the nose which has resolved. Endorses headache, bruising and swelling to the nose, and cannot breathe out of the left nostril. Endorses hitting the left knee and right hand on the ground as well, but denies significant pain or decreased ROM to these sites. Denies LOC, neck pain, dizziness, n/v or vision changes. Taking Eliquis. Related Data Home Medications Medication Instructions Recorded Confirmed latanoprost 0.005 % eye drops 1 drp ophthalmic (eye) QPM 10/06/20 10/30/23 clotrimazole 1 % topical cream See Rx Instructions .Route 11/07/21 10/30/23 .COMPLEX PRN Skin Irritation lidocaine 4 % topical cream 1 applic topical TID PRN Pain 11/07/21 10/30/23 triamcinolone acetonide 0.1 % See Rx Instructions .Route 11/07/21 10/30/23 topical cream .COMPLEX PRN Rash calcium carb-ergocalciferol (vit 2 tablet PO DAILY 06/14/22 10/30/23 D2) 600 mg calcium-200 unit tablet apixaban 5 mg tablet (Eliquis) 5 mg PO BID 03/10/23 10/30/23 multivitamin 1 tablet PO DAILY 10/30/23 10/30/23 Allergies Allergy/AdvReac Type Severity Reaction Status Date / Time penicillin V Allergy Intermediate Rash Verified 10/30/23 18:32 quinapril Allergy Mild cough Verified 10/30/23 18:32 ciprofloxacin AdvReac Mild Gastrointestinal Verified 10/30/23 18:32 Upset Review of Systems Review of Systems: CONSTITUTIONAL: Denies body aches, fever, chills, or sweats. EYES: Denies visual changes, redness, or discharge. ENT: Reports epistaxis, swelling, bruising CARDIOVASCULAR: Denies chest pain, palpitations, or edema. RESPIRATORY: Denies cough or dyspnea. GASTROINTESTINAL: Denies abdominal pain, nausea, vomiting, or diarrhea. SKIN: Denies rash, itching, or wounds. MUSCULOSKELETAL: Denies back pain, joint pain, or myalgia. NEUROLOGIC: Endorses headache, denies numbness, tingling, weakness, dizziness All systems reviewed & are unremarkable except as noted in HPI and below PMFSH Past Medical History Medical History Abdominal pain Basal cell carcinoma of chest wall Chronic kidney disease, stage 3 Diverticulosis Essential hypertension Gastroesophageal reflux disease Glaucoma Glaucoma Major depressive disorder, single episode, mild Metabolic syndrome Mixed hyperlipidemia Osteoarthritis Surgical History Surgical History History of basal cell carcinoma excision History of bladder suspension procedure History of cataract extraction History of colonoscopy History of dilation and curettage History of hysterectomy History of lumbar surgery History of tonsillectomy History of total knee arthroplasty (~11/2021) LEFT Family History Family History Grandparent Cerebrovascular accident Mother Carcinoma of colon Patient's mother is Father Family history of lung cancer Patient's father is Other Family history of elevated blood lipids Hypertension No family history of cardiovascular disease Social History Social History Social History: Surrogate decision maker: Alena Hardy, daughter. Code status: Full code. Smoking status: Never smoker Alcohol intake: current Alcohol use details: One alcoholic beverage a month Substance use: never Substance use type: does not use Lack of Transportation: N
== END 2023-10-30 19:04 | disposition short-term general hospital (02) ==
LOC: EXPGOSH 18:28
PROVIDERS: Emergency Provider Nurse Practitioner Family; PCP Family Medicine
DX: S09.90XA Unspecified injury of head, initial encounter (principal); S60.511A Abrasion of right hand, initial encounter; I12.9 Hypertensive chronic kidney disease with stage 1 through stage 4 chronic kidney disease, or unspecified chronic kidney disease; N18.30 Chronic kidney disease, stage 3 unspecified; E78.2 Mixed hyperlipidemia; Z79.899 Other long term (current) drug therapy; Z79.01 Long term (current) use of anticoagulants; W01.0XXA Fall on same level from slipping, tripping and stumbling without subsequent striking against object, initial encounter
CPT/HCPCS: 99212; G0463

== ENCOUNTER 2023-10-30 19:25 | Emergency (ER) | payer MEDICARE, OTHER, SELFPAY ==
--- NOTE | ~2023-10-30 | CT_ITS ---
EXAMINATION: CT brain wo con DATE: 10/30/2023 20:05 INDICATION: Fall with head and facial injury. TECHNIQUE: Computed tomography (CT) of the head was performed without intravenous contrast. Sagittal and coronal reconstructions were performed. The mA was adjusted according to patient size. Iterative reconstruction technique was employed. The dose-length product was 174.99 mGy-cm. COMPARISON: head CT dated 04/08/2023 FINDINGS: No calvarial fracture. No acute intracranial hemorrhage, acute infarction or abnormal extra axial flu id collection. There is moderate scattered white matter hypoattenuation consistent with chronic small vessel ischemic disease. Symmetric prominence of the sulci consistent with moderate age-appropriate diffuse cerebral volume loss. Ventricles are normal and symmetric. No mass/mass effect. Changes of bi lateral intraocular lens replacement. The orbits, paranasal sinuses and mastoid air cells are normal. IMPRESSION: 1. No fracture or acute intracranial process. 2. Age-related changes including moderate diffuse on loss and moderate scattered white matter hypoatt enuation consistent with chronic small vessel ischemic disease. Reviewed, dictated and finalized at location A. TAMPER IMPRESSION: 1. No fracture or acute intracranial process. 2. Age-related changes including moderate diffuse on loss and moderate scattere d white matter hypoattenuation consistent with chronic small vessel ischemic di sease.
--- NOTE | ~2023-10-30 | CT_ITS ---
EXAMINATION: 1. CT facial & cervical spine wo DATE: 10/30/2023 20:35 INDICATION: Fall with head and facial injury TECHNIQUE: 1. Computed tomography (CT) of the maxillofacial region and of the cervical spine were performed with out intravenous contrast. Sagittal and coronal reconstructions of both regions were obtained. Automat ed exposure control and iterative reconstruction technique were employed. The dose-length product was mGy-cm. COMPARISON: 04/08/2023 FINDINGS: Maxillofacial CT: Acute fracture of the right nasal bone with the anterior fragment displaced 4 mm medially. There is s oft tissue swelling over the bridge of the nose. No other maxillofacial fractures identified. Specifi naa the mandible, zygomatic arches and herron of the orbits and paranasal sinuses are all intact. Ch anges of bilateral intraocular lens replacement. Mastoid air cells and middle ear cavities are clear. Hypertrophic to prior seen along the lingual side of the mandible. Cervical spine CT: Severe osteoarthritis at the atlantoaxial articulation. 1-2 mm anterolisthesis C3 on C4. Straightenin g of the normal cervical lordosis. Vertebral body heights are normal. No fracture. Severe disc height loss from C4-C7. Moderate disc height loss at C7-T1 and mild disc height loss at C3-C4. Bridging ant erior osteophytes from C4-T1 as well as fusion across the C4-C7 uncovertebral joints. Severe multilev el cervical facet osteoarthritis with fusion at multiple levels. No interval change in severe central canal stenosis at C3-C4 and mild central canal stenosis at a few additional cervical levels as well as multilevel mild to moderate bilateral neural foraminal stenosis as detailed on a level by level ba sis on the prior study. Small amount of atherosclerotic calcific location at the bilateral carotid bu lbs. Cervical soft tissues are otherwise unremarkable. Mild biapical pleural-parenchymal scarring. IMPRESSION: 1. Displaced right nasal bone fracture. No other maxillofacial fractures identified. 2. Severe cervical spondylosis with no acute osseous abnormality. Reviewed, dictated and finalized at location A. GENCY DETAIL DRIVER IMPRESSION: 1. Displaced right nasal bone fracture. No other maxillofacial fractures identi fied. 2. Severe cervical spondylosis with no acute osseous abnormality.
[2023-10-30 19:29] VITALS: BP 198/68; PULSE 73; RESP 18; TEMP 36.6; O2SAT 100
[2023-10-30 21:43] VITALS: BP 217/77; PULSE 65; RESP 18; TEMP 36.8; O2SAT 97
--- NOTE | 2023-10-30 21:50 | PC.NURSE ---
Patient's blood pressure was taken three times and systolic pressure was 210-[address] Sukumar melendrez.
[2023-10-30 22:39] VITALS: BP 144/77; PULSE 65; RESP 20; O2SAT 99
--- NOTE | 2023-10-30 23:41 | ED.GENADULT ---
HPI - General Adult General Chief complaint: Head Injury Stated complaint: fell and landed on nose on curb Time Seen by Provider: 10/30/23 22:51 History of Present Illness HPI narrative: patient 83-year-old female who presents emergency department chief complaint of head injury. The patient reports that she tripped and fell and struck her face. The patient denies loss of consciousness reports that she is on anticoagulant. The patient states she has bruising around her orbits and also her nose the patient reports that her nose is stuffy afterwards. The patient did report that she had a nose bleed following the incident but her bleeding has stopped Related Data Home Medications Medication Instructions Recorded Confirmed latanoprost 0.005 % eye drops 1 drp ophthalmic (eye) QPM 10/06/20 10/30/23 clotrimazole 1 % topical cream See Rx Instructions .Route 11/07/21 10/30/23 .COMPLEX PRN Skin Irritation lidocaine 4 % topical cream 1 applic topical TID PRN Pain 11/07/21 10/30/23 triamcinolone acetonide 0.1 % See Rx Instructions .Route 11/07/21 10/30/23 topical cream .COMPLEX PRN Rash calcium carb-ergocalciferol (vit 2 tablet PO DAILY 06/14/22 10/30/23 D2) 600 mg calcium-200 unit tablet apixaban 5 mg tablet (Eliquis) 5 mg PO BID 03/10/23 10/30/23 multivitamin 1 tablet PO DAILY 10/30/23 10/30/23 Allergies Allergy/AdvReac Type Severity Reaction Status Date / Time penicillin V Allergy Intermediate Rash Verified 10/30/23 18:32 quinapril Allergy Mild cough Verified 10/30/23 18:32 ciprofloxacin AdvReac Mild Gastrointestinal Verified 10/30/23 18:32 Upset Review of Systems Review of Systems: A 10 system review of systems was completed on the patient and is negative except for what is stated in the HPI. Nursing and ancillary documentation was reviewed. [facility] Past Medical History Medical History Abdominal pain Basal cell carcinoma of chest wall Chronic kidney disease, stage 3 Diverticulosis Essential hypertension Gastroesophageal reflux disease Glaucoma Glaucoma Major depressive disorder, single episode, mild Metabolic syndrome Mixed hyperlipidemia Osteoarthritis Surgical History Surgical History History of basal cell carcinoma excision History of bladder suspension procedure History of cataract extraction History of colonoscopy History of dilation and curettage History of hysterectomy History of lumbar surgery History of tonsillectomy History of total knee arthroplasty (~11/2021) LEFT Family History Family History Grandparent Cerebrovascular accident Mother Carcinoma of colon Patient's mother is Father Family history of lung cancer Patient's father is Other Family history of elevated blood lipids Hypertension No family history of cardiovascular disease Social History Social History Social History: Surrogate decision maker: Alena Hardy, daughter. Code status: Full code. Smoking status: Never smoker Alcohol intake: current Alcohol use details: One alcoholic beverage a month Substance use: never Substance use type: does not use Lack of Transportation: No Lack of Food: Never True Current Housing: I Have Housing Concerned About Future Housing: No Difficulty Paying Gas/Electric Bills: No Difficulty Paying for Meds: No Currently Unemployed: No Education: High School Diploma/GED Difficulty w/ Childcare or Family Care: No Living arrangements: with family Occupation/Education: retired Spiritual care concerns: No Exam Narrative: GENERAL: Well-appearing, well-nourished, and in no acute distress. HEAD: Normocephalic, there is bruising around the nose and the bilateral
== END 2023-10-30 23:50 | disposition home or self-care (01) ==
PROVIDERS: Emergency Provider Emergency Medicine; PCP Family Medicine
DX: S02.2XXA Fracture of nasal bones, initial encounter for closed fracture (principal); I12.9 Hypertensive chronic kidney disease with stage 1 through stage 4 chronic kidney disease, or unspecified chronic kidney disease; N18.30 Chronic kidney disease, stage 3 unspecified; K21.9 Gastro-esophageal reflux disease without esophagitis; H40.9 Unspecified glaucoma; E78.2 Mixed hyperlipidemia; M19.90 Unspecified osteoarthritis, unspecified site; Z96.652 Presence of left artificial knee joint; Z85.828 Personal history of other malignant neoplasm of skin; Z98.49 Cataract extraction status, unspecified eye; Z90.710 Acquired absence of both cervix and uterus; Z79.01 Long term (current) use of anticoagulants; M47.812 Spondylosis without myelopathy or radiculopathy, cervical region; W01.0XXA Fall on same level from slipping, tripping and stumbling without subsequent striking against object, initial encounter
CPT/HCPCS: 70450; 70486; 72125; 99284

== ENCOUNTER 2024-02-13 08:39 | Outpatient (CLI) | payer MEDICARE, OTHER, SELFPAY ==
[2024-02-13 09:39] LABS: Anion Gap 4 mmol/L (4-12); Blood Urea Nitrogen 19 mg/dL (7-17); Calcium 9.3 mg/dL (8.4-10.2); Carbon Dioxide 34 mmol/L (22-30); Chloride 103 mmol/L (98-107); Estimated Glomerular Filt Rate 53; Glucose 96 mg/dL (65-110); INR 1.2; Partial Thromboplastin Time 34.1 Seconds (22.3-36.8); Potassium 3.4 mmol/L (3.4-5.0); Prothrombin Time 15.6 Seconds (11.1-14.7); Sodium 141 mmol/L (137-145)
== END 2024-02-13 08:40 | disposition home or self-care (01) ==
LOC: ANHSURGERY 08:44
PROVIDERS: Anesthesiology; PCP Family Medicine; Visit Provider Urology
DX: Z01.818 Encounter for other preprocedural examination (principal); R32 Unspecified urinary incontinence; N18.30 Chronic kidney disease, stage 3 unspecified
CPT/HCPCS: 36415; 80048; 85610; 85730; 87086; 87088

== ENCOUNTER 2024-02-20 01:37 | Day surgery (SDC) | payer MEDICARE, OTHER, SELFPAY ==
[2024-02-06 12:04] VITALS: BMI 28.3
--- NOTE | 2024-02-06 12:15 | PC.NURSE ---
PRE-OP INSTRUCTIONS, PLEASE READ CAREFULLY Report to the Outpatient Waiting Room, entrance under the green pavilion located off [facility], at time _0915_ on date _02/20/24_. Planned Procedure Time: _1115_. Time changes happen often and if your time is changed the preop area will call you the afternoon before. - You and your visitor will be asked to self-screen and do not enter if you have any COVID symptoms. - A mask is optional within the hospital at this time. Patients may have clear liquids (water, carbonated beverages, clear teas, apple juice) until 3 hours prior to surgery (0815 AM) with a maximum of 20 ounces. - No food from midnight until time of surgery Take the following medications with a SIP of water the morning of surgery: _METOPROLOL_ DO NOT STOP ANY OF YOUR OTHER PRESCRIPTION MEDICATIONS PRIOR TO SURGERY ?EXCEPT THE FOLLOWING Medications to discontinue per DR. BLACK - _APIXABAN (ELIQUIS) PATIENT STATES, Date to take last dose 02/18/24_ Medications to discontinue per ANESTHESIA - _MULTIVITAMIN 3 DAYS PRIOR TO SURGERY, Date to take last dose 02/16/24_ Please no make-up, nail slovak, hairspray, perfume, deodorant, or body powder the day of surgery. No jewelry (including any body piercings) or valuables the day of surgery, leave them at home. Please take a shower or bath the night before, or the morning of, surgery with an antibacterial soap. Wear comfortable, loose fitting clothing. - Jewelry must be removed prior to entering the operating room. Rings and piercings that are not removed may be cut off. - The hospital will not accept responsibility for valuables. - Please leave all valuables, including medications, at home the day of surgery. If you are going home after surgery, a licensed canal driver must drive you home. - NO public transportation without another adult if you receive anesthesia. - We recommend that an adult stay with you for 24 hours following discharge. - We also recommend that you do not drive, make important decision, drink alcoholic beverages, or take any drugs that were not prescribed by your health care provider for at least 24 hours after your discharge time. Follow any additional instructions given to you from your surgeon. If you or anyone in your household have experienced Covid symptoms in the past week, please notify your surgeon or the nurse liaison at the phone number below for possible testing. Telephone instructions given to _PATIENT_and asked if any additional questions and then verbalized understanding. Patient advised to call surgeon office or pre surgery nurse liaison [phone] if any additional questions.
--- NOTE | 2024-02-15 11:50 | PM.IMHP ---
H&P: HPI History of Present Illness Date/Time: 02/15/24 11:50 Chief Complaint: IVANA Narrative: mixed incontinence. Presents for treatment of ISD Review of Systems Review of Systems: All systems reviewed & are unremarkable except as noted in HPI and below PMFSH Past Medical History Medical History Abdominal pain Basal cell carcinoma of chest wall Chronic kidney disease, stage 3 Diverticulosis Essential hypertension Gastroesophageal reflux disease Glaucoma Glaucoma Major depressive disorder, single episode, mild Metabolic syndrome Mixed hyperlipidemia Osteoarthritis Surgical History Surgical History History of basal cell carcinoma excision History of cataract extraction History of colonoscopy History of dilation and curettage History of hysterectomy History of lumbar surgery History of tonsillectomy History of total knee arthroplasty (~11/2021) LEFT Family History Family History Grandparent Cerebrovascular accident Mother Carcinoma of colon Patient's mother is Father Family history of lung cancer Patient's father is Other Family history of elevated blood lipids Hypertension No family history of cardiovascular disease Social History Social History Social History: Surrogate decision maker: Alena Hardy, daughter. Code status: Full code. Smoking status: Never smoker Second hand tobacco smoke exposure: No Alcohol intake: current Alcohol use details: 1/MONTH Substance use: never Substance use type: does not use Do You Feel Safe in your Home?: Yes Lack of Transportation: No Lack of Food: Never True Current Housing: I Have Housing Concerned About Future Housing: No Difficulty Paying Gas/Electric Bills: No Difficulty Paying for Meds: No Currently Unemployed: No Education: High School Diploma/GED Difficulty w/ Childcare or Family Care: No Living arrangements: alone Occupation/Education: retired Additional occupation/education comments: 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y a week Spiritual care concerns: No Meds Home Medications and Allergies Home Medications Medication Instructions Recorded Confirmed Type latanoprost 0.005 % eye drops 1 drp ophthalmic (eye) QPM 10/06/20 02/06/24 History lidocaine 4 % topical cream 1 applic topical TID PRN Pain 11/07/21 02/06/24 History triamcinolone acetonide 0.1 % See Rx Instructions .Route 11/07/21 02/06/24 History topical cream .COMPLEX PRN Rash calcium carb-ergocalciferol (vit 2 tablet PO DAILY 06/14/22 02/06/24 History D2) 600 mg calcium-200 unit tablet omeprazole 40 mg capsule,delayed 40 mg PO BID #180 caps 01/29/23 02/06/24 Rx release metoprolol tartrate 50 mg tablet 50 mg PO BID #90 tabs 02/09/23 02/06/24 Rx apixaban 5 mg tablet (Eliquis) 5 mg PO BID 03/10/23 02/06/24 History hydrochlorothiazide 25 mg tablet 25 mg PO DAILY #90 tabs 09/15/23 02/06/24 Rx olmesartan 40 mg tablet 40 mg PO DAILY #90 tabs 09/15/23 02/06/24 Rx multivitamin 1 tablet PO DAILY 10/30/23 02/06/24 History atorvastatin 20 mg tablet See Rx Instructions .Route 12/15/23 02/06/24 Rx .COMPLEX #90 tabs Allergies Allergy/AdvReac Type Severity Reaction Status Date / Time penicillin V Allergy Intermediate Rash Verified 02/06/24 11:58 quinapril Allergy Mild cough Verified 02/06/24 11:58 ciprofloxacin AdvReac Mild Gastrointestinal Verified 02/06/24 11:58 Upset Exam Narrative: NAD fixed urethra Assessment and Plan Assessment and plan (1) Intrinsic sphincter deficiency (ISD): Code(s): N36.42 - Intrinsic sphincter deficiency (ISD) Status: Acute Assessment and Plan: cystoscopy, bulking agent
--- NOTE | 2024-02-20 04:38 | WPDHPUPDATE1 ---
History and Physical Update Update Date/Time: 02/20/24 04:38 History and Physical has been reviewed, including an updated exam of the patient. There are NO changes in the patient's condition. Risks, benefits, and alternatives have been discussed and questions answered. Patient agrees to proceed with procedure.
--- NOTE | 2024-02-20 10:10 | WPDANESEPPF ---
Anes - Initial Pre Proc Eval Procedure: Operation Date: 02/20/24 11:00 Proposed Procedures p Cystoscopy, Injection Bulking Agent - Cecilio Dixon MD Date/Time: 02/20/24 10:10 Surgeon: Cecilio Dixon MD Pre Op Diagnosis: ID Patient Data Age: 83 Gender: F Height: 1.6 m Weight: 72.72 kg Allergies Allergy/AdvReac Type Severity Reaction Status Date / Time penicillin V Allergy Intermediate Rash Verified 02/06/24 11:58 quinapril Allergy Mild cough Verified 02/06/24 11:58 ciprofloxacin AdvReac Mild Gastrointestinal Verified 02/06/24 11:58 Upset Home Medications Medication Instructions Recorded Confirmed Type latanoprost 0.005 % eye drops 1 drp ophthalmic (eye) QPM 10/06/20 02/06/24 History lidocaine 4 % topical cream 1 applic topical TID PRN Pain 11/07/21 02/06/24 History triamcinolone acetonide 0.1 % See Rx Instructions .Route 11/07/21 02/06/24 History topical cream .COMPLEX PRN Rash calcium carb-ergocalciferol (vit 2 tablet PO DAILY 06/14/22 02/06/24 History D2) 600 mg calcium-200 unit tablet omeprazole 40 mg capsule,delayed 40 mg PO BID #180 caps 01/29/23 02/06/24 Rx release metoprolol tartrate 50 mg tablet 50 mg PO BID #90 tabs 02/09/23 02/06/24 Rx apixaban 5 mg tablet (Eliquis) 5 mg PO BID 03/10/23 02/06/24 History hydrochlorothiazide 25 mg tablet 25 mg PO DAILY #90 tabs 09/15/23 02/06/24 Rx olmesartan 40 mg tablet 40 mg PO DAILY #90 tabs 09/15/23 02/06/24 Rx multivitamin 1 tablet PO DAILY 10/30/23 02/06/24 History atorvastatin 20 mg tablet See Rx Instructions .Route 12/15/23 02/06/24 Rx .COMPLEX #90 tabs Laboratory Tests 02/20/24 09:57 PT Pending INR Pending APTT Pending Patient hx anesthesia problems: none Family hx anesthesia problems: none Results Review: All pre-operative results and documents have been reviewed as part of the pre-operative evaluation. [facility] Past Medical History Medical History (Updated 02/20/24 @ 10:11 by Héctor Waller DO) Abdominal pain Atrial fibrillation Basal cell carcinoma of chest wall Chronic kidney disease, stage 3 Diverticulosis Essential hypertension Gastroesophageal reflux disease Glaucoma Glaucoma Major depressive disorder, single episode, mild Metabolic syndrome Mixed hyperlipidemia Osteoarthritis Surgical History Surgical History History of basal cell carcinoma excision History of cataract extraction History of colonoscopy History of dilation and curettage History of hysterectomy History of lumbar surgery History of tonsillectomy History of total knee arthroplasty (~11/2021) LEFT Family History Family History Grandparent Cerebrovascular accident Mother Carcinoma of colon Patient's mother is Father Family history of lung cancer Patient's father is Other Family history of elevated blood lipids Hypertension No family history of cardiovascular disease Social History Social History Social History: Surrogate decision maker: Alnea Hardy, daughter. Code status: Full code. Smoking status: Never smoker Second hand tobacco smoke exposure: No Alcohol intake: current Alcohol use details: 1/MONTH Substance use: never Substance use type: does not use Do You Feel Safe in your Home?: Yes Lack of Transportation: No Lack of Food: Never True Current Housing: I Have Housing Concerned About Future Housing: No Difficulty Paying Gas/Electric Bills: No Difficulty Paying for Meds: No Currently Unemployed: No Education: High School Diploma/GED Difficulty w/ Childcare or Family Care: No Living arrangements: alone Occupation/Education: retired Additional occupation/education comments: 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y a week Spiritual care concerns: No
[2024-02-20 10:11] VITALS: BP 151/66; PULSE 59; RESP 14; TEMP 36.8; O2SAT 96
[2024-02-20] MEDS: LACTATED RINGERS 1,000 ML 30 ML IV CONT (10:15)
[2024-02-20 10:20] LABS: INR 0.9; Prothrombin Time 12.6 Seconds (11.1-14.7)
[2024-02-20 10:21] LABS: Partial Thromboplastin Time 28.9 Seconds (22.3-36.8)
[2024-02-20] MEDS: ceFAZolin 2 GM/D5W 50 ML 2 GM/50 ML BAG IVPB (10:24)
--- NOTE | 2024-02-20 10:43 | P.OP_ITS ---
Procedure Note - Detailed Date of Procedure 02/20/24 Pre-op Diagnosis Intrinsic sphincter deficiency Post-op Diagnosis Same Procedure Performed Cystoscopy with suburethral injection of implant material Surgeon Cecilio Dixon MD Anesthesia MAC and Local (Uro jet) Indications This 1 mixed incontinence. She presents today for treatment of her intrinsic sphincter deficiency. She understands though not help her overactive bladder. We are going to do a bulking agent. She understands risks of bleeding, infec tion, lack of efficacy, need for repeat procedures, urinary retention requiring catheterization. She agrees to proceed Findings Open urethra, uncomplicated bulking agent Description of Procedure She was correctly identified. Informed consent obtained. From the operating room. She was given monitored anesthesia care. She was given appropriate perioperative antibiotics. She was prepped and draped in dorsal thigh position. Time-out performed. Uro jet was applied. Cystoscopy revealed mild tra beculations. Otherwise normal bladder. Urethra open consistent with intrinsic sphincter deficiency. I chose a site 2 cm distal to the bladder neck. I injecting bulking agent circumferentially. I performed 6 pillows completely collapsing urethra. I used 1 syringe total. There was excellent bulking effect. I left the bladder partially full. She was awakened transferred to PACU in stable condition. Estimated Blood Loss 1 Drains No Packing No Pathology None sent Complications No immediate complications Condition Stable Disposition PACU
[2024-02-20] MEDS: LIDOCAINE HCL 2% GEL UROJET 10 ML PKG MUCOUS MEM (10:45)
[2024-02-20 10:48] VITALS: BP 147/64; PULSE 71; RESP 16; O2SAT 96
[2024-02-20 11:15] VITALS: BP 165/62; PULSE 75; RESP 16
[2024-02-20 11:45] VITALS: BP 173/66; PULSE 73; RESP 16
== END 2024-02-20 12:00 | disposition home or self-care (01) ==
PROVIDERS: Anesthesiology; PCP Family Medicine; Visit Provider Urology
PROC: 3E0K8GC Introduction of Other Therapeutic Substance into Genitourinary Tract, Via Natural or Artificial Opening Endoscopic (ICD-10-PCS; CPT 51715; principal; 2024-02-20 11:00)
DX: N36.42 Intrinsic sphincter deficiency (ISD) (principal); N39.3 Stress incontinence (female) (male); I12.9 Hypertensive chronic kidney disease with stage 1 through stage 4 chronic kidney disease, or unspecified chronic kidney disease; N18.30 Chronic kidney disease, stage 3 unspecified; E78.5 Hyperlipidemia, unspecified; E78.2 Mixed hyperlipidemia; H40.9 Unspecified glaucoma; K21.9 Gastro-esophageal reflux disease without esophagitis; F32.0 Major depressive disorder, single episode, mild; I48.91 Unspecified atrial fibrillation; Z79.01 Long term (current) use of anticoagulants
CPT/HCPCS: 51715; 36415; 85610; 85730; J0690; J2704; J3010; J7120; L8606

== ENCOUNTER 2024-04-06 09:28 | Outpatient (CLI) | payer MEDICARE, OTHER, SELFPAY ==
--- NOTE | 2024-04-06 11:00 | NEURO_ITS ---
Impression: # Non-Diabetic complains of numbness of hands. # No Carpal Tunnel Syndrome. 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 # Needle/EMG exam not done due to pain intolerance. Nerve Conduction Studies Anti Sensory Summary Table Stim Site NR Peak (ms) P-T Amp (?V) Site1 Site2 Delta-P (ms) Dist (cm) Patrick (m/s) Left Median Anti Sensory (2-3nd Digit) Wrist 3.3 18.3 Wrist 2-3nd Digit 3.3 14.0 42 Wrist 3.0 35.7 Wrist 2-3nd Digit 3.3 14.0 42 Right Median Anti Sensory (2-3nd Digit) Wrist 3.2 16.9 Wrist 2-3nd Digit 3.2 14.0 44 Wrist 3.3 6.8 Wrist 2-3nd Digit 3.2 14.0 44 Left Radial Anti Sensory (Base 1st Digit) Wrist 1.9 32.9 Wrist Base 1st Digit 1.9 0.0 Right Radial Anti Sensory (Base 1st Digit) Wrist 2.4 27.5 Wrist Base 1st Digit 2.4 0.0 Left Ulnar Anti Sensory (5th Digit) Wrist 2.6 40.4 Wrist 5th Digit 2.6 14.0 54 Right Ulnar Anti Sensory (5th Digit) Wrist 2.6 44.1 Wrist 5th Digit 2.6 14.0 54 Motor Summary Table Stim Site NR Onset (ms) O-P Amp (mV) Site1 Site2 Delta-0 (ms) Dist (cm) Patrick (m/s) Left Median Motor (Abd Poll Brev) Wrist 3.6 3.0 Elbow Wrist 5.6 32.0 57 Elbow 9.2 3.1 Right Median Motor (Abd Poll Brev) Wrist 3.1 4.4 Elbow Wrist 5.3 30.0 57 Elbow 8.4 4.0 Left Ulnar Motor (Abd Dig Minimi) Wrist 2.6 5.9 A Elbow Wrist 6.2 32.0 52 A Elbow 8.8 1.3 B Elbow Wrist 4.1 25.0 61 B Elbow 6.7 5.2 Right Ulnar Motor (Abd Dig Minimi) Wrist 2.5 7.0 A Elbow Wrist 5.7 29.0 51 A Elbow 8.2 6.3 B Elbow Wrist 3.7 18.0 49 B Elbow 6.2 3.8 F Wave Studies NR F-Lat (ms) L-R F-Lat (ms) Left Median (Mrkrs) (Abd Poll Brev) 28.60 1.34 Right Median (Mrkrs) (Abd Poll Brev) 27.26 1.34 Left Ulnar (Mrkrs) (Abd Dig Min) 29.14 1.49 Right Ulnar (Mrkrs) (Abd Dig Min) 27.66 1.49 MTDD
== END 2024-04-06 09:29 | disposition home or self-care (01) ==
LOC: ANHNEURO 09:29
PROVIDERS: PCP Family Medicine; Visit Provider Orthopaedic Surgery
DX: G56.23 Lesion of ulnar nerve, bilateral upper limbs (principal)
CPT/HCPCS: 95911

== ENCOUNTER 2024-04-13 08:52 | Outpatient (CLI) | payer MEDICARE, OTHER, SELFPAY ==
--- NOTE | ~2024-04-13 | MM_ITS ---
EXAMINATION: MM screening lauren BI w quintin HISTORY: Screening TECHNIQUE: Craniocaudal and mediolateral oblique 3-D tomosynthesis images were obtained and synthetic 2-D images were generated. CAD analysis was submitted and interpreted. COMPARISON: Comparison to multiple prior studies sequentially, with oldest reviewed study dated 01/02. BREAST PARENCHYMAL COMPOSITION: There are scattered areas of fibroglandular density. FINDINGS: There is no evidence of suspicious mass, calcification, or architectural distortion to sugg est malignancy in either breast. There has been no suspicious interval change. IMPRESSION: 1. No mammographic evidence of malignancy. 2. Recommend routine screening mammography in one year. BI-RADS Category 1: Negative Reviewed, dictated and finalized at location B.
== END 2024-04-13 08:53 | disposition home or self-care (01) ==
PROVIDERS: PCP Family Medicine; Visit Provider Family Medicine
DX: Z12.31 Encounter for screening mammogram for malignant neoplasm of breast (principal)
CPT/HCPCS: 77063; 77067

== ENCOUNTER 2024-05-01 12:02 | Emergency (ER) | payer MEDICARE, OTHER, SELFPAY ==
--- NOTE | ~2024-05-01 | US_ITS ---
US venous doppler [facility] DATE: 05/01/2024 13:51 INDICATION: Swelling of the lower extremities TECHNIQUE: Real-time and color flow imaging and Doppler analysis of the veins of the lower extremitie s COMPARISON: None FINDINGS: The greater saphenous veins are patent. There is spontaneous and phasic flow and normal aug mentation and color flow signal and normal compression of the deep veins of both lower extremities. IMPRESSION: No evidence of deep venous thrombosis of either lower extremity Reviewed, dictated and finalized at Location A. Reviewed, dictated and finalized at location A.
[2024-05-01 12:24] VITALS: BP 180/72; PULSE 60; RESP 16; TEMP 36.6; O2SAT 98
[2024-05-01 13:26] LABS: Basophils Absolute Auto 0.1 K/mm3 (0.0-0.1); Eosinophils Absolute Auto 0.1 K/mm3 (0-0.3); Eosinophils Percent Auto 1.2 % (0-4.4); Hematocrit 33.6 % (37.0-47.0); Hemoglobin 11.1 g/dL (12.0-15.0); Immature Granulocyte Absolute 0.01 K/mm3 (0.00-0.031); Immature Granulocyte Percent A 0.2 % (0-0.5); Lymphocytes Absolute Auto 0.79 K/mm3 (0.9-3.2); Lymphocytes Percent Auto 13.8 % (18.3-44.2); Mean Corpuscular Hemoglobin 30.3 pg (26-34); Mean Corpuscular Volume 91.8 fl (80-100); Mean Platelet Volume 10.1 fl (7.4-10.4); Monocytes Absolute Auto 0.2 K/mm3 (0.1-0.6); Neutrophils Absolute Auto 4.6 K/mm3 (1.3-6.7); Neutrophils Percent Auto 79.8 % (45.5-73.1); Platelet Count Result 194 k/mm3 (150-375); Red Blood Count 3.66 M/mm3 (4.2-5.4); Red Cell Distribution Width 15.3 % (11.5-14.5); White Blood Count 5.7 K/mm3 (4.5-10.0)
[2024-05-01 13:38] LABS: Alanine Aminotransferase 15 U/L (6-35); Albumin Level 4.1 g/dL (3.5-5.1); Alkaline Phosphatase 92 U/L (38-126); Anion Gap 5 mmol/L (4-12); Aspartate Amino Transferase 69 U/L (14-36); Bilirubin,Total 0.8 mg/dL (0.2-1.3); Blood Urea Nitrogen 13 mg/dL (7-17); Calcium 9.4 mg/dL (8.4-10.2); Carbon Dioxide 27 mmol/L (22-30); Chloride 109 mmol/L (98-107); Estimated CRCL calculation 35 ml/min; Estimated Glomerular Filt Rate 53; Glucose 114 mg/dL (65-110); Potassium 3.9 mmol/L (3.4-5.0); Sodium 141 mmol/L (137-145)
--- NOTE | 2024-05-01 14:46 | ED.GENADULT ---
HPI - General Adult General Chief complaint: Extremity Problem,Nontraumatic Stated complaint: swelling x weeks Time Seen by Provider: 05/01/24 12:29 History of Present Illness HPI narrative: Patient is an 83-year-old female who presents ER with lower extremity swelling. Ongoing for several weeks. Saw her orthopedic surgeon 2 days ago who recommend she come to the ER to be evaluated. Is been itchy. Occasionally pain. Better when she elevates her legs. No history of blood clots. No chest pain or shortness of breath. Related Data Home Medications Medication Instructions Recorded Confirmed latanoprost 0.005 % eye drops 1 drp ophthalmic (eye) QPM 10/06/20 04/29/24 lidocaine 4 % topical cream 1 applic topical TID PRN Pain 11/07/21 04/29/24 triamcinolone acetonide 0.1 % See Rx Instructions .Route 11/07/21 04/29/24 topical cream .COMPLEX PRN Rash calcium carb-ergocalciferol (vit 2 tablet PO DAILY 06/14/22 04/29/24 D2) 600 mg calcium-200 unit tablet apixaban 5 mg tablet (Eliquis) 5 mg PO BID 03/10/23 04/29/24 multivitamin 1 tablet PO DAILY 10/30/23 04/29/24 Allergies Allergy/AdvReac Type Severity Reaction Status Date / Time penicillin V Allergy Intermediate Rash Verified 05/01/24 13:14 quinapril Allergy Mild cough Verified 05/01/24 13:14 ciprofloxacin AdvReac Mild Gastrointestinal Verified 05/01/24 13:14 Upset Review of Systems Review of Systems: All systems reviewed & are unremarkable except as noted in HPI and below Constitutional: Constitutional: Reports no additional constitutional complaints Cardiovascular: Cardiovascular: Reports no additional cardiovascular complaints Respiratory: Respiratory: Reports no additional respiratory complaints Gastrointestinal: Gastrointestinal: Reports no additional gastrointestinal complaints Musculoskeletal: Musculoskeletal: Reports no additional musculoskeletal complaints [facility] Past Medical History Medical History Abdominal pain Atrial fibrillation Basal cell carcinoma of chest wall Chronic kidney disease, stage 3 Diverticulosis Essential hypertension Gastroesophageal reflux disease Glaucoma Glaucoma Major depressive disorder, single episode, mild Metabolic syndrome Mixed hyperlipidemia Osteoarthritis Surgical History Surgical History History of basal cell carcinoma excision History of cataract extraction History of colonoscopy History of dilation and curettage History of hysterectomy History of lumbar surgery History of tonsillectomy History of total knee arthroplasty (~11/2021) LEFT Knee joint replacement by other means S/P urethral surgery Family History Family History Grandparent Cerebrovascular accident Mother Carcinoma of colon Patient's mother is Father Family history of lung cancer Patient's father is Other Family history of elevated blood lipids Hypertension No family history of cardiovascular disease Social History Social History Social History: Surrogate decision maker: Alena Hardy, daughter. Code status: Full code. Smoking status: Never smoker Second hand tobacco smoke exposure: No Alcohol intake: current Alcohol use details: 1/MONTH Substance use: never Substance use type: does not use Do You Feel Safe in your Home?: Yes Lack of Transportation: No Lack of Food: Never True Current Housing: I Have Housing Concerned About Future Housing: No Difficulty Paying Gas/Electric Bills: No Difficulty Paying for Meds: No Currently Unemployed: No Education: High School Diploma/GED Difficulty w/ Childcare or Family Care: No Living arrangements: alone Occupation/Education: retired Additional occupation/education comments: 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
== END 2024-05-01 15:09 | disposition home or self-care (01) ==
PROVIDERS: Emergency Provider Emergency Medicine; PCP Family Medicine
DX: R60.0 Localized edema (principal); I48.91 Unspecified atrial fibrillation; I12.9 Hypertensive chronic kidney disease with stage 1 through stage 4 chronic kidney disease, or unspecified chronic kidney disease; N18.30 Chronic kidney disease, stage 3 unspecified; H40.9 Unspecified glaucoma; E88.810 Metabolic syndrome; E78.2 Mixed hyperlipidemia; K21.9 Gastro-esophageal reflux disease without esophagitis; M19.90 Unspecified osteoarthritis, unspecified site; Z96.652 Presence of left artificial knee joint; Z85.828 Personal history of other malignant neoplasm of skin; Z98.49 Cataract extraction status, unspecified eye; Z90.710 Acquired absence of both cervix and uterus; Z79.01 Long term (current) use of anticoagulants; Z79.899 Other long term (current) drug therapy
CPT/HCPCS: 36415; 80053; 85025; 93970; 99284

== ENCOUNTER 2024-05-06 15:21 | Outpatient (CLI) | payer MEDICARE, OTHER, SELFPAY ==
[2024-05-06 19:55] LABS: Alanine Aminotransferase 18 U/L (6-35); Albumin Level 4.5 g/dL (3.5-5.1); Alkaline Phosphatase 87 U/L (38-126); Anion Gap 12 mmol/L (4-12); Aspartate Amino Transferase 68 U/L (14-36); Bilirubin,Total 0.6 mg/dL (0.2-1.3); Blood Urea Nitrogen 32 mg/dL (7-17); Calcium 9.2 mg/dL (8.4-10.2); Carbon Dioxide 28 mmol/L (22-30); Chloride 101 mmol/L (98-107); Estimated Glomerular Filt Rate 39; Glucose 121 mg/dL (65-110); Potassium 4.2 mmol/L (3.4-5.0); Sodium 141 mmol/L (137-145)
== END 2024-05-06 15:22 | disposition home or self-care (01) ==
PROVIDERS: PCP Family Medicine; Visit Provider Family Medicine
DX: Z79.899 Other long term (current) drug therapy (principal)
CPT/HCPCS: 36415; 80053

== ENCOUNTER 2024-05-10 08:50 | Outpatient (CLI) | payer MEDICARE, OTHER, SELFPAY ==
--- NOTE | ~2024-05-10 | DEXA_ITS ---
Bone Density Report Name: STEWART CARRERA Age: 83 Sex: Female Ethnicity: White Date of : 1940 Indication: postmenopausal; screening for osteoporosis; height loss; hysterectomy; Referring Provider: EVON MIRANDA Study: Bone densitometry was performed. Exam Date: May 10, 2024 Accession number: [id number] Bone Density: Region BMD T-score Z-score Classification AP Spine(L1, L2, L3) 1.148 1.2 4.0 Normal Femoral Neck (Left) 0.674 -1.6 0.9 Osteopenia Total Hip (Left) 0.838 -0.9 1.5 Normal Femoral Neck (Right) 0.787 -0.6 2.0 Normal Total Hip (Right) 0.869 -0.6 1.7 Normal Total Hip Mean 0.853 -0.8 1.6 Normal World Health Organization criteria for BMD impression classify patients as: Normal (T-score at or above -1.0), Osteopenia (T-score between -1.0 and -2.5), or Osteoporosis (T-score at or below -2.5). 10-year Fracture Risk(1): Major Osteoporotic Fracture 13% Hip Fracture 3.5% Reported Risk Factors: [place] (), Neck BMD=0.674, BMI=29.9 (1) FRAX(R) Version 3.08. Fracture probability calculated for an untreated patient. Fracture probability may be lower if the patient has received treatment. Clinical Information Provided by Patient: Has used the following medications: Vitamin D, Calcium Has the following medical conditions: Hysterectomy Patient maximum height was 64 Menopause Age: 49 No regular weight bearing exercise Drinks caffeinated beverages Onset of menses at age 12 Number of children 3 Impression: The patient has low bone mass, based on the Left Femoral Neck T-score. The patient has an estimated ten-year risk of hip fracture of 3.5% and an estimated ten-year risk of major fracture of 13%, based on the WHO FRAX algorithm. Discussion: BONE DENSITY IS LOW AT ONE OR MORE SKELETAL SITES. THE PATIENT'S BMD AND CLINICAL RISK FACTORS CONTRIBUTE TO THIS PATIENT'S INCREASED RISK OF FRACTURE. This patient's lowest T-score is low at one or more skeletal sites. It meets the World Health Organization's (WHO) criteria for ?low bone mass? (T-score between -1.0 and -2.5). The patient's 10-year risk of hip fracture as calculated by FRAX exceeds the threshold where pharmacological therapy is recommended by the National Osteoporosis Foundation (NOF). However, all treatment decisions require clinical judgment and consideration of individual patient factors, including patient preferences, comorbidities, previous drug use, risk factors not captured in the FRAX model (e.g., frailty, falls, vitamin D deficiency, increased bone turnover, interval significant decline in bone density) and possible under or overestimation of fracture risk by FRAX. The patient should follow a healthful lifestyle (good nutrition with adequate calcium and vitamin D, and appropriate weight-bearing exercise
== END 2024-05-10 08:51 | disposition home or self-care (01) ==
LOC: ANHIMG 08:51
PROVIDERS: PCP Family Medicine; Visit Provider Nurse Practitioner
DX: M85.89 Other specified disorders of bone density and structure, multiple sites (principal); Z78.0 Asymptomatic menopausal state
CPT/HCPCS: 77080

== ENCOUNTER 2024-07-16 08:18 | Outpatient (CLI) | payer MEDICARE, OTHER, SELFPAY ==
[2024-07-16 09:04] LABS: INR 1.1; Prothrombin Time 14.9 Seconds (11.1-14.7)
[2024-07-16 09:06] LABS: Partial Thromboplastin Time 31.6 Seconds (22.3-36.8)
== END 2024-07-16 08:19 | disposition home or self-care (01) ==
PROVIDERS: Anesthesiology; PCP Family Medicine; Visit Provider Orthopaedic Surgery
DX: Z01.818 Encounter for other preprocedural examination (principal); N18.30 Chronic kidney disease, stage 3 unspecified
CPT/HCPCS: 36415; 85610; 85730

== ENCOUNTER 2024-07-21 01:09 | Day surgery (SDC) | payer MEDICARE, OTHER, SELFPAY ==
--- NOTE | 2024-07-15 11:15 | PC.NURSE ---
Report to the Outpatient Waiting Room, entrance under the green pavilion located off [facility], at time _8:30 AM on date07/21/24 . Planned Procedure Time: _10:30 AM .? Time changes happen often and if your time is changed the preop area will call you the afternoon before. - You and your visitor will be asked to self-screen and do not enter if you have any COVID symptoms. Please call surgeon if you need to reschedule. - A mask is optional within the hospital at this time. Patients may have clear liquids (water, carbonated beverages, clear teas, apple juice) until 3 hours prior to surgery( 7:30 AM) with a maximum of 20 ounces. - No food from midnight until time of surgery and no smoking - Infants may have breast milk until 4 hours before surgery, formula 6 hours prior to surgery. - Children will be allowed to drink immediately following surgery.? If applicable, please bring a bottle or sippy cup to assist with drinking. Juice, water, soda, and popsicles are readily available.? For infants on formula, please bring formula the day of surgery.? Pacifiers are allowed. Take only the following medications with a SIP of water on the morning of surgery: _METOPROLOL, DO NOT STOP ANY OF YOUR OTHER PRESCRIPTION MEDICATIONS PRIOR TO SURGERY EXCEPT THE FOLLOWING Medications to discontinue per physician __PT TO CALL DR CONTE REGARDING ELIQUIS .HOLD ALL VITAMINS AND SUPPLEMENTS 3 DAYS PRE OP .LAST DOSE 07/17/24 Please no make-up, nail taiwanese, hairspray, perfume, deodorant, or body powder the day of surgery.? No jewelry (including any body piercings) or valuables the day of surgery, leave them at home.? Please take a shower or bath the night before, or the morning of, surgery with an antibacterial soap.? Wear comfortable, loose fitting clothing.? Children are encouraged to wear pajamas. - Jewelry must be removed prior to entering the operating room.? Rings and piercings that are not removed may be cut off. - The hospital will not accept responsibility for valuables.? - Please leave all valuables, including medications, at home the day of surgery. If you are going home after surgery, a licensed lease purchase driver must drive you home.? - NO public transportation without another adult if you receive anesthesia. - We recommend that an adult stay with you for 24 hours following discharge. - We also recommend that you do not drive, make important decision, drink alcoholic beverages, or take any drugs that were not prescribed by your health care provider for at least 24 hours after your discharge time. Follow any additional instructions given to you from your surgeon. Telephone instructions given to __PATIENT and asked if any additional questions and then verbalized understanding. Patient advised to call surgeon office or pre surgery nurse liaison [phone] if any additional questions.
[2024-07-15 11:29] VITALS: BMI 28.3
--- NOTE | 2024-07-20 07:39 | PM.IMHP ---
H&P: HPI History of Present Illness Date/Time: 07/20/24 07:39 Chief Complaint: Patient is carpal tunnel complaints left hand. She has failed conservative treatment like to consider surgical intervention. Review of Systems Musculoskeletal: Musculoskeletal: Reports arthralgias, Reports joint swelling and Reports stiffness PMF Past Medical History Medical History Abdominal pain Atrial fibrillation Basal cell carcinoma of chest wall Chronic kidney disease, stage 3 Diverticulosis Essential hypertension Gastroesophageal reflux disease Glaucoma Glaucoma Major depressive disorder, single episode, mild Metabolic syndrome Mixed hyperlipidemia Osteoarthritis Surgical History Surgical History History of basal cell carcinoma excision History of cataract extraction History of colonoscopy History of dilation and curettage History of hysterectomy History of lumbar surgery History of tonsillectomy History of total knee arthroplasty (~11/2021) LEFT Knee joint replacement by other means S/P urethral surgery Family History Family History Grandparent Cerebrovascular accident Mother Carcinoma of colon Patient's mother is Father Family history of lung cancer Patient's father is Other Family history of elevated blood lipids Hypertension No family history of cardiovascular disease Social History Social History Social History: Surrogate decision maker: Alena Hardy, daughter. Code status: Full code. Smoking status: Never smoker Second hand tobacco smoke exposure: No Alcohol intake: current Alcohol use details: ONE DRINK PER MONTH Substance use: never Substance use type: does not use Do You Feel Safe in your Home?: Yes Lack of Transportation: No Lack of Food: Never True Current Housing: I Have Housing Concerned About Future Housing: No Difficulty Paying Gas/Electric Bills: No Difficulty Paying for Meds: No Currently Unemployed: No Education: High School Diploma/GED Difficulty w/ Childcare or Family Care: No Living arrangements: alone Occupation/Education: retired Additional occupation/education comments: 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y a week/[employer] Gender identity (if verbalized by the patient): Female Spiritual care concerns: No Meds Home Medications and Allergies Home Medications Medication Instructions Recorded Confirmed Type latanoprost 0.005 % eye drops 1 drp ophthalmic (eye) HS 10/06/20 07/15/24 History triamcinolone acetonide 0.1 % See Rx Instructions .Route 11/07/21 07/15/24 History topical cream .COMPLEX PRN Rash calcium carb-ergocalciferol (vit 2 tablet PO DAILY 06/14/22 07/15/24 History D2) 600 mg calcium-200 unit tablet metoprolol tartrate 50 mg tablet 50 mg PO BID #90 tabs 02/09/23 07/15/24 Rx apixaban 5 mg tablet (Eliquis) 5 mg PO BID 03/10/23 07/15/24 History hydrochlorothiazide 25 mg tablet 25 mg PO DAILY #90 tabs 03/08/24 07/15/24 Rx omeprazole 40 mg capsule,delayed See Rx Instructions .Route 05/03/24 07/15/24 Rx release .COMPLEX #180 caps potassium chloride 20 mEq 20 meq PO DAILY #90 tabs 05/18/24 07/15/24 Rx tablet,extended release alendronate 70 mg tablet 70 mg PO WEEKLY 06/08/24 07/15/24 History atorvastatin 20 mg tablet See Rx Instructions .Route 06/14/24 07/15/24 Rx .COMPLEX #90 tabs olmesartan 40 mg tablet 40 mg PO DAILY #90 tabs 06/14/24 07/15/24 Rx furosemide 20 mg tablet (Lasix) 20 mg PO DAILY #90 tabs 06/29/24 07/15/24 Rx pdailzpn-phxh-ipzs 8 mg-folic 400 1 tablet PO DAILY 07/15/24 07/15/24 History mcg-K 50 mcg-lutein 300 mcg tablet (Centrum Silver Women) Allergies Allergy/AdvReac Type Severity Reaction Status Date / Time penicillin V Allergy Intermedia
[2024-07-21] MEDS: LIDOCAINE HCL 1% LOCAL INJ 20 ML VIAL 10 ML INFILTRATE (09:18)
[2024-07-21 09:40] VITALS: BP 169/63; PULSE 50; TEMP 36.6; O2SAT 99; BMI 30.5
--- NOTE | 2024-07-21 09:46 | WPDHPUPDATE1 ---
History and Physical Update Update Date/Time: 07/21/24 09:46 History and Physical has been reviewed, including an updated exam of the patient. There are NO changes in the patient's condition. Risks, benefits, and alternatives have been discussed and questions answered. Patient agrees to proceed with procedure.
[2024-07-21] MEDS: ACETAMINOPHEN 500 MG TABLET 1000 MG PO (09:52)
--- NOTE | 2024-07-21 10:20 | WPDANESEPPF ---
Anes - Initial Pre Proc Eval Procedure: Operation Date: 07/21/24 10:30 Proposed Procedures p Left Carpal Tunnel Release - Billy Stratton MD Date/Time: 07/21/24 10:20 Surgeon: Billy Stratton MD Pre Op Diagnosis: left Carpal Tunnel syndrome Patient Data Age: 83 Gender: F Height: 1.6 m Weight: 78.2 kg Last Vital Signs Temp 36.6 C 07/21/24 09:40 Pulse 50 L 07/21/24 09:40 BP 169/63 H 07/21/24 09:40 Pulse Ox 99 07/21/24 09:40 O2 Del Method Room Air 07/21/24 09:40 Allergies Allergy/AdvReac Type Severity Reaction Status Date / Time penicillin V Allergy Intermediate Rash Verified 07/21/24 09:39 quinapril Allergy Mild cough Verified 07/21/24 09:39 ciprofloxacin AdvReac Mild Gastrointestinal Verified 07/21/24 09:39 Upset Home Medications Medication Instructions Recorded Confirmed Type latanoprost 0.005 % eye drops 1 drp ophthalmic (eye) HS 10/06/20 07/15/24 History triamcinolone acetonide 0.1 % See Rx Instructions .Route 11/07/21 07/15/24 History topical cream .COMPLEX PRN Rash calcium carb-ergocalciferol (vit 2 tablet PO DAILY 06/14/22 07/15/24 History D2) 600 mg calcium-200 unit tablet metoprolol tartrate 50 mg tablet 50 mg PO BID #90 tabs 02/09/23 07/15/24 Rx apixaban 5 mg tablet (Eliquis) 5 mg PO BID 03/10/23 07/15/24 History hydrochlorothiazide 25 mg tablet 25 mg PO DAILY #90 tabs 03/08/24 07/15/24 Rx omeprazole 40 mg capsule,delayed See Rx Instructions .Route 05/03/24 07/15/24 Rx release .COMPLEX #180 caps potassium chloride 20 mEq 20 meq PO DAILY #90 tabs 05/18/24 07/15/24 Rx tablet,extended release alendronate 70 mg tablet 70 mg PO WEEKLY 06/08/24 07/15/24 History atorvastatin 20 mg tablet See Rx Instructions .Route 06/14/24 07/15/24 Rx .COMPLEX #90 tabs olmesartan 40 mg tablet 40 mg PO DAILY #90 tabs 06/14/24 07/15/24 Rx furosemide 20 mg tablet (Lasix) 20 mg PO DAILY #90 tabs 06/29/24 07/15/24 Rx cgnhegme-uahe-usyt 8 mg-folic 400 1 tablet PO DAILY 07/15/24 07/15/24 History mcg-K 50 mcg-lutein 300 mcg tablet (Centrum Silver Women) Patient hx anesthesia problems: none Family hx anesthesia problems: none Results Review: All pre-operative results and documents have been reviewed as part of the pre-operative evaluation. [facility] Past Medical History Medical History Abdominal pain Atrial fibrillation Basal cell carcinoma of chest wall Chronic kidney disease, stage 3 Diverticulosis Essential hypertension Gastroesophageal reflux disease Glaucoma Glaucoma Major depressive disorder, single episode, mild Metabolic syndrome Mixed hyperlipidemia Osteoarthritis Surgical History Surgical History History of basal cell carcinoma excision History of cataract extraction History of colonoscopy History of dilation and curettage History of hysterectomy History of lumbar surgery History of tonsillectomy History of total knee arthroplasty (~11/2021) LEFT Knee joint replacement by other means S/P urethral surgery Family History Family History Grandparent Cerebrovascular accident Mother Carcinoma of colon Patient's mother is Father Family history of lung cancer Patient's father is Other Family history of elevated blood lipids Hypertension No family history of cardiovascular disease Social History Social History Social History: Surrogate decision maker: Alena Hardy, daughter. Code status: Full code. Smoking status: Never smoker Second hand tobacco smoke exposure: No Alcohol intake: current Alcohol use details: ONE DRINK PER MONTH Substance use: never Substance use type: does not use Do You Feel Safe in your Home?: Yes Lack of Transportation: No Lack of Fo
[2024-07-21] MEDS: LACTATED RINGERS 1,000 ML 30 ML IV CONT (10:25)
[2024-07-21] MEDS: ceFAZolin 2 GM/D5W 50 ML 2 GM/50 ML BAG IVPB (11:09)
--- NOTE | 2024-07-21 11:30 | P.OP_ITS ---
Procedure Note - Detailed Date of Procedure 07/21/24 Pre-op Diagnosis LEFT Carpal Tunnel syndrome Post-op Diagnosis Same Procedure Performed LEFT carpal tunnel release Surgeon Billy Stratton MD Anesthesia MAC Indications Pain and Numbness Description of Procedure A general anesthetic was administered. After sterile prep and drape, I injected the area of intended incision with 10ml of 1% lidocaine. A longitudinal incision was made in line with the ulnar boarder of the third finger. Dissection carried down to the fascia, the fascia split and the carpal ligament identified. The carpal ligament was released and the flexor retinaculum was released as well. The nerve was noted to be red purple in color and in continuity. The wound was irrigated, hemostasis was obtained and closed with 3- 0 prolene. Estimated Blood Loss 5 Drains No Packing No Pathology None sent Complications No immediate complications Condition Stable Disposition Same day [facility] Billing Surgery - Charge Forward: Surgery Billing ([id number] Carpal Tunnel)
[2024-07-21 11:44] VITALS: BP 175/60; PULSE 59; RESP 12; O2SAT 96
[2024-07-21 12:10] VITALS: BP 170/64; PULSE 54; RESP 14; O2SAT 95
[2024-07-21 12:40] VITALS: BP 164/66; PULSE 63; RESP 14
== END 2024-07-21 12:55 | disposition home or self-care (01) ==
PROVIDERS: PCP Family Medicine; Visit Provider Orthopaedic Surgery
PROC: (CPT 64721; principal; 2024-07-21 10:30)
DX: G56.02 Carpal tunnel syndrome, left upper limb (principal); I48.91 Unspecified atrial fibrillation; I12.9 Hypertensive chronic kidney disease with stage 1 through stage 4 chronic kidney disease, or unspecified chronic kidney disease; N18.30 Chronic kidney disease, stage 3 unspecified; K21.9 Gastro-esophageal reflux disease without esophagitis; E78.2 Mixed hyperlipidemia; H40.9 Unspecified glaucoma; F32.0 Major depressive disorder, single episode, mild; Z79.01 Long term (current) use of anticoagulants
CPT/HCPCS: 64721; A9270; J0690; J2704; J3010; J7120

== ENCOUNTER 2024-08-05 14:28 | Outpatient (CLI) | payer MEDICARE, OTHER, SELFPAY ==
--- NOTE | ~2024-08-05 | XR_ITS ---
XR abdomen/kub 1V Ordering provider: Glenis Gillis LINOLEUM TILE LAYER-C History: . R19.7 - Diarrhea, unspecified . Comparison: September 03, 2022 FINDINGS: BOWEL: Nonobstructive bowel gas pattern. ORGANOMEGALY: None. SIGNIFICANT PATHOLOGIC CALCIFICATIONS: None. OTHER: No free air is seen under the diaphragm. Degenerative the spine. Bilateral hip moderate osteoarthritic changes. Bilateral sacroiliacs. Pubic s ymphysitis. IMPRESSION: NO ACUTE ABDOMINAL FINDINGS. Reviewed, dictated and finalized at location A.
== END 2024-08-05 14:29 | disposition home or self-care (01) ==
PROVIDERS: PCP Family Medicine; Visit Provider Nurse Practitioner
DX: R19.7 Diarrhea, unspecified (principal)
CPT/HCPCS: 74018

== ENCOUNTER 2024-12-06 09:10 | Outpatient (CLI) | payer MEDICARE, OTHER, SELFPAY ==
--- NOTE | ~2024-12-06 | US_ITS ---
Limited Abdominal Sonogram: Real-time sonographic imaging of the right upper quadrant was performed. Clinical History: Abnormal serum enzyme levels Findings: The liver appears normal with no evidence of mass lesion or bile duct dilatation. Main por jericho vein demonstrates normal direction of flow. The gallbladder is well distended, and demonstrate sm all layering gallstones. No definite gallbladder wall thickening. The common bile duct measures 4 mm. The visualized pancreas, aorta, and IVC are unremarkable. Impression: Cholelithiasis. Reviewed, dictated and finalized at location M. E ARCHITECT Impression: Cholelithiasis.
== END 2024-12-06 09:11 | disposition home or self-care (01) ==
LOC: ANHIMG 09:11
PROVIDERS: PCP Family Medicine; Visit Provider Family Medicine
DX: K80.20 Calculus of gallbladder without cholecystitis without obstruction (principal); R74.8 Abnormal levels of other serum enzymes
CPT/HCPCS: 76705

== ENCOUNTER 2025-02-02 13:48 | Emergency (ER) | payer MEDICARE, OTHER, SELFPAY ==
[2025-02-02 14:11] VITALS: BP 155/75; PULSE 60; RESP 16; TEMP 36.8; O2SAT 97
--- NOTE | 2025-02-02 14:34 | ED_ITS ---
HPI - Female Genitourinary General Chief complaint: Urogenital-Female Stated complaint: UTI SYMPTOMS Source: patient and RN notes reviewed Mode of arrival: ambulatory Limitations: no limitations History of Present Illness HPI Narrative: 84-year-old female presented for complaint of burning with urination, frequency and urgency. Onset 2 days. She was urinating more often than normal last night. Denies hematuria, nausea, vomiting, abdominal pain, flank pain, constipation, diarrhea, fevers or chills. Related Data Home Medications ?Medication ?Instructions ?Recorded ?Confirmed ?Last Taken ?Type latanoprost 0.005 % eye drops 1 drp ophthalmic (eye) HS 10/06/20 01/25/25 11/27/21 History calcium carb-ergocalciferol (vit 2 tablet PO DAILY 06/14/22 01/25/25 07/01/22 06:00 History D2) 600 mg calcium-200 unit tablet apixaban 5 mg tablet (Eliquis) 5 mg PO BID 03/10/23 01/25/25 Unknown History vfnpmqmf-zgdr-thhp 8 mg-folic 400 1 tablet PO DAILY 07/15/24 01/25/25 Unknown History mcg-K 50 mcg-lutein 300 mcg tablet (Centrum Silver Women) Allergies Allergy/AdvReac Type Severity Reaction Status Date / Time penicillin V Allergy Intermediate Rash Verified 02/02/25 14:37 quinapril Allergy Mild cough Verified 02/02/25 14:37 clarithromycin AdvReac Intermediate Diarrhea Verified 02/02/25 14:37 ciprofloxacin AdvReac Mild Gastrointestinal Verified 02/02/25 14:37 Upset Review of Systems Review of Systems: CONSTITUTIONAL: Denies body aches, fever, chills, or sweats. CARDIOVASCULAR: Denies chest pain, palpitations, or edema. RESPIRATORY: Denies cough or dyspnea. GASTROINTESTINAL: Denies abdominal pain, nausea, vomiting, or diarrhea. GENITOURINARY: Reports dysuria, frequency, urgency, denies hematuria, flank pain SKIN: Denies rash MUSCULOSKELETAL: Denies back pain or myalgia. [facility] Past Medical History Medical History Cervical spondylosis without myelopathy Atrial fibrillation Abdominal pain Glaucoma Osteoarthritis Basal cell carcinoma of chest wall Gastroesophageal reflux disease Diverticulosis Essential hypertension Chronic kidney disease, stage 3 Glaucoma Major depressive disorder, single episode, mild Metabolic syndrome Mixed hyperlipidemia Surgical History Surgical History Knee joint replacement by other means S/P urethral surgery History of total knee arthroplasty (~11/2021) LEFT History of lumbar surgery History of cataract extraction History of hysterectomy History of tonsillectomy History of dilation and curettage History of basal cell carcinoma excision History of colonoscopy Family History Family History Grandparent Cerebrovascular accident Mother Carcinoma of colon Patient's mother is Father Family history of lung cancer Patient's father is Other Family history of elevated blood lipids Hypertension No family history of cardiovascular disease Social History Social History Social History: Caffeine-coffee,soda Surrogate decision maker: Alena Hardy, daughter. Code status: Full code. Smoking status: Never smoker Second hand tobacco smoke exposure: No Alcohol intake: current Alcohol use details: ONE DRINK PER MONTH Substance use: never Substance use type: does not use Current Housing: Decline to Answer Concerned About Future Housing: Decline to Answer Difficulty Paying Gas/Electric Bills: Decline to Answer Difficulty Paying for Meds: Decline to Answer Currently Unemployed: Decline to Answer Education: Decline to Answer Difficulty w/ Childcare or Family Care: Decline to Answer Living arrangements: alone Occupation/Education: retired Additional occupation/education comments: 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y a week/[employer] Gender identity (if verbalized by the patient): Female Spiritual care concerns: No Comments At time of signature, I have reviewed and agree with nursing past medical, surgical, social and family history unless otherwise noted. Please see nursing chart for further information. There is no relevant family history pertinent to the presenting complaint Exam Narrative: GENERAL: Well-appearing ENT: Mucous membranes pink and moist. NECK: Normal AROM. Supple. CHEST: No respiratory distress. Clear to auscultation. HEART: Regular rate and rhythm. murmur noted. ABDOMEN: Soft, nontender, nondistended, normal active bowel sounds. No CVA tenderness NEURO: No focal deficits. Alert and oriented x3. Gait steady. PSYCH: Normal affect. Course Course Emergency Course: Patient is aware of diagnosis, understands and agrees to treatment plan. Anticipatory guidance given. Patient agrees to follow-up as directed and is aware of reasons to seek care at the emergency department. Portions of this record may have been created with voice recognition software Level of Care: Express Care Visit Vital Signs Vital signs: Vital Signs Temperature 98.2 F 02/02/25 14:11 Pulse Rate 60 02/02/25 14:11 Respiratory Rate 16 02/02/25 14:11 Blood Pressure 155/75 H 02/02/25 14:11 Pulse Oximetry 97 02/02/25 14:11 Temperature 98.2 F 02/02/25 14:11 Pulse Rate 60 02/02/25 14:11 Respiratory Rate 16 02/02/25 14:11 Blood Pressure 155/75 H 02/02/25 14:11 Pulse Oximetry 97 02/02/25 14:11 Reviewed MDM - Female Genitourinary MDM Narrative Medical decision making narrative: Discussed physical exam findings urine dip. Will culture urine, patient elects to wait for culture results before starting antibiotics due to her allergies. Advised supportive measures and signs/symptoms to go to the ER. Pt is appropriate for outpt treatment and f/u. Differential Diagnosis Differential diagnosis: Likely urinary tract infection, vaginitis and cystitis Discharge Plan Discharge Clinical Impression: UTI (urinary tract infection) Patient Disposition: Home, Self-Care Condition: Stable Instructions: Antibiotic Form, Urinary Tract Infection in Women (ED) Additional Instructions: The urine will be sent of for a culture to identify what type of bacteria is causing your infection. you will be notified and an antibiotic will be called in for you. Increase water intake you will need to follow up with your PCP, call to schedule an appointment. Go to the ER for any worsening symptoms or concerns Patient Language: Afghan Prescriptions: No Action latanoprost 0.005 % drops 1 drp ophthalmic (eye) HS Eliquis 5 mg tablet 5 mg PO BID calcium carbonate-vitamin D2 600 mg calcium- 200 unit Tablet 2 tablet PO DAILY Centrum Silver Women 8 mg iron-400 mcg-50 mcg Tablet 1 tablet PO DAILY omeprazole 40 mg capsule,delayed release(DR/EC) See Rx Instructions .ROUTE .COMPLEX Qty: 180 4RF Dose Instruction: TAKE 1 CAPSULE BY MOUTH TWICE A DAY Rx Instructions: TAKE 1 CAPSULE BY MOUTH TWICE A DAY hydrochlorothiazide 25 mg tablet 25 mg PO DAILY Qty: 90 1RF potassium chloride [Klor-Con M20] 20 mEq tablet,ER particles/crystals See Rx Instructions .ROUTE .COMPLEX Qty: 90 1RF Dose Instruction: TAKE 1 TABLET BY MOUTH EVERY DAY Rx Instructions: TAKE 1 TABLET BY MOUTH EVERY DAY atorvastatin 20 mg tablet See Rx Instructions .ROUTE .COMPLEX Qty: 90 1RF Dose Instruction: TAKE 1 TABLET BY MOUTH EVERY DAY Rx Instructions: TAKE 1 TABLET BY MOUTH EVERY DAY olmesartan 40 mg tablet See Rx Instructions .ROUTE .COMPLEX Qty: 90 1RF Dose Instruction: TAKE 40 MG ORALLY DAILY Rx Instructions: TAKE 40 MG ORALLY DAILY furosemide 20 mg tablet See Rx Instructions .ROUTE .COMPLEX Qty: 90 1RF Dose Instruction: TAKE 1 TABLET BY MOUTH EVERY DAY Rx Instructions: TAKE 1/2 TABLET BY MOUTH EVERY DAY Follow-up/Referrals: Pat Morales DO [Primary Care Provider] -
[2025-02-02 14:51] LABS: EDUAAPPEAR Clear; EDUABILI Negative (Negative); EDUABLOOD Trace (Negative); EDUACOLOR1 Yellow; EDUAGLUCOSE Negative (Negative); EDUAKETONE Negative (Negative); EDUALEUKO 2+ (Negative); EDUANITRATE Negative (Negative); EDUAPROTEIN Negative (Negative); EDUASPGRAVITY 1.015; EDUAUROBILI 0.2
== END 2025-02-02 14:48 | disposition home or self-care (01) ==
PROVIDERS: Emergency Provider Nurse Practitioner Family; PCP Family Medicine
DX: N39.0 Urinary tract infection, site not specified (principal); B96.20 Unspecified Escherichia coli [E. coli] as the cause of diseases classified elsewhere; I12.9 Hypertensive chronic kidney disease with stage 1 through stage 4 chronic kidney disease, or unspecified chronic kidney disease; N18.30 Chronic kidney disease, stage 3 unspecified; I48.91 Unspecified atrial fibrillation; E78.2 Mixed hyperlipidemia; E88.810 Metabolic syndrome; H40.9 Unspecified glaucoma; K21.9 Gastro-esophageal reflux disease without esophagitis; M19.90 Unspecified osteoarthritis, unspecified site; M47.812 Spondylosis without myelopathy or radiculopathy, cervical region; Z85.828 Personal history of other malignant neoplasm of skin; Z96.652 Presence of left artificial knee joint; Z79.01 Long term (current) use of anticoagulants
CPT/HCPCS: 81003; 87077; 87086; 87186; 99213; G0463

== ENCOUNTER 2025-03-10 09:50 | Outpatient (NON) | payer MEDICARE, OTHER, SELFPAY ==
--- OUTSIDE RECORDS SUMMARY | 2025-03-10 10:51 | XMS_ITS | Encounter Summary ---
Author Organization [facility] Address [address] [place] [address] Care Team Providers Care Natural Gas Field Processing Supervisor Name Role Phone Pat Morales DO Primary Care Provider +1- [phone] Encounter Details Date Type Department Care Team (Late st Contact Info) Description 03/04/2025 Telephone [facility] Cardiology [address] [place] [address] Rony Dubose MD [address] [place] [address] Social History Tobacco Use Types Packs/Day Years Used Date Smoking Tobacco: Never Smokeless Tobacco: Never Comments Unknown Sex and Gender Information Value Date Recorded Sex Assigned at Not on file 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 Pt verbalizes understanding and appreciative of return call. * Telephone Encounter - Krysten Ibanez - 03/04/2025 8:08 AM CDT Pt requesting a call back to discuss her warfarin. She missed her dosage last night and wanted to know if that will change the outcome of her blood work she is going to have done today at 9 am. Please advise pt was going to take a dose this morning but the instructions state to not take it on a dayyou will take another dose and since she normally takes it at night she didn't take it this morning. Thank you Contact: documented in this encounter Plan of Treatment Not on file documented as of this encounter Visit Diagnoses Not on filedocumented in this encounter Care Teams Natural Gas Field Processing Supervisor Relationship Specialty Start Date End Date Pat Morales DO PCP - General Family Medicine 07/11/21 documented as of this encounter
--- OUTSIDE RECORDS SUMMARY | 2025-03-10 10:51 | XMS_ITS | Clinical Summary ---
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 Gender Identity Not on file Sexual Orientation Not on file Plan of Treatment Health Maintenance Due Date Last Done Comments DTaP, Tdap and Td Vaccines ( 1 - Tdap) 1958 Pneumococcal Vaccine: 50+ Years (1 of 1 - PCV) 1989 Zoster Vaccines (1 of 2) 1989 RSV Immunization or 60+ Years (1 - 1-dose 75+ series) 2014 COVID-19 Vaccine (3 - 2023-2 5 season) 2024 12/13/2020, 11/15/2020 Meningococcal B Vaccine Aged Out No l onger eligible based on patient's age to complete this topic Meningococcal Vaccine Aged Out No judy ofe eligible based on patient's age to complete this topic RSV Immunizations Under 20 Months Aged Out No longer eligible b ased on patient's age to complete this topic
--- OUTSIDE RECORDS SUMMARY | 2025-03-10 10:52 | XMS_ITS | Referral Summary ---
Author Organization [facility] Address [address] [place] [phone] Care Team Providers Care Ship Fitter Name Role Phone Pat Morales DO Primary Care Provider +1- [phone] Encounters Date Type Department Care Team Description 03/07/2025 Anticoagulation Visit [facility] Cardiology [address] [place] [address] [place] [phone] Marta Mcintosh RN Typical atrial flutter (HCC) (Primary Dx); Atrial fibrillation, unspecified type (HCC) 03/04/2025 Telephone [facility] Cardiology [address] [place] [address] [place] [phone] Rony Dubose MD 03/02/2025 1:15 PM CDT Procedure visit [place] [address] [place] [phone] Palpitations 02/25/2025 Anticoagulation Visit [facility] Cardiology [address] [place] [address] [address] [place] [phone] Donn Parsons RN Typical atrial flutter (HCC) (Primary Dx); Atrial fibrillation, unspecified type (HCC) 02/18/2025 Anticoagulation Visit [facility] Cardiology [address] [place] [address] [address] [place] [phone] Marta Mcintosh RN Typical atrial flutter (HCC) (Primary Dx); Atrial fibrillation, unspecified type (HCC) 02/08/2025 Anticoagulation Visit [facility] Cardiology [address] [place] [address] [place], [place] [phone] Kelsea Hartley RN Typical atrial flutter (HCC) (Primary Dx); Atrial fibrillation, unspecified type (HCC) 02/08/2025 Telephone [facility] Cardiology [address] [place], [place] [phone] Rony Dubose MD 01/26/2025 Telephone [facility] Cardiology [address] [place] [address] Laurie Prater MA Med Refill 12/10/2024 Telephone [facility] Cardiology [address] [place], [place] [phone] Rony Dubose MD from Last 3 Months Allergies Active Allergy Reactions Criticality Noted Date Comments Penicillins Unknown 07/17/2021 Medications hydroCHLOROthi azide (HYDRODIURIL) 25 mg tablet Take 1 tablet (25 mg total) by mouth daily 06/16/20 21 Active olmesartan (BENICAR) 40 mg tablet Take 1 tablet (40 mg total) by mouth daily 06/28/20 21 Active atorvastatin (LIPITOR) 20 mg tablet Take 1 tablet (20 mg total) by mouth daily 04/17/20 21 Active latanoprost (XALATAN) 0.005 % ophthalmic solution Administer 1 drop into both eyes daily Active triamcinolone (KENALOG) 0.1 % ointment PLEASE SEE ATTACHED FOR DETAILED DIRECTIONS 05/21/20 21 Active multivitamin capsule Take 1 capsule by mouth daily Active calcium carbonate-abdirizak min D3 1500 mg (600 mg elemental) -200 units per tablet Take 2 tablets by mouth daily Active pxywltwi91-zzg p-Vueyaoxr-ecq al 27 mg iron-1.13 mg-581.92 mg capsule Take by mouth Active omeprazole (PriLOSEC) 40 mg capsule Take 1 capsule (40 mg total) by mouth 2 (two) times a day 01/30/20 23 Active lidocaine HCL 4 % cream Apply topically Active clotrimazole 1 % cream Apply topically 2 (two) times a day Active furosemide (LASIX) 20 mg tablet Take 1 tablet (20 mg total) by mouth daily Taking 10 mg daily. 05/06/20 24 Active potassium chloride ER 20 mEq CR tablet Take 1 tablet (20 mEq total) by mouth daily 03/03/20 24 Active metoprolol tartrate (LOPRESSOR) 50 mg immediate release tablet TAKE 1 TABLET BY MOUTH TWICE A DAY 180 tablet 1 11/29/19 25 Active warfarin (COUMADIN) 2 mg tablet TAKE 2 TABLETS (4 MG TOTAL) BY MOUTH DAILY OR INSTRUCTED. 180 tablet 1 03/03/20 25 Active warfarin (COUMADIN) 2 mg tablet Take 2 tablets (4 mg total) by mouth daily Or as instructed. 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 Gender Identity Not on file Sexual Orientation Not on file Last Filed Vital Signs Vital Sign Reading Time Taken Comments Blood Pressure 126/64 03/02/2025 12:46 PM CDT Pulse 55 03/02/2025 12:46 PM CDT Temperature - - Respiratory Rate - - Oxygen Saturation 98% 03/02/2025 12:46 PM CDT Inhaled Oxygen Concentration - - Weight 76.8 kg (169 lb 6.4 oz) 11/30/2024 10:26 AM PRINCIPAL ASSOCIATE Height 160 cm (5' 3 ) 11/30/2024 10:26 AM PRINCIPAL ASSOCIATE Body Mass Index 30.01 11/30/2024 10:26 AM PRINCIPAL ASSOCIATE Plan of Treatment Not on file Procedures Procedure Name Priority Date/Time Associated Diagnosis Comments PROTIME-INR Routine 03/04/2025 8:57 AM CDT Typical atrial flutter (HCC) Chronic anticoagulation ECG 12-LEAD Routine 03/02/2025 12:53 PM CDT Palpitations PROTIME-INR Routine 02/25/2025 8:55 AM CDT Typical atrial flutter (HCC) Chronic anticoagulation PROTIME-INR Routine 02/17/2025 8:46 AM CDT Typical atrial flutter (HCC) Chronic anticoagulation from Last 3 Months Results * (ABNORMAL) Protime-INR (03/04/2025 8:57 AM CDT) INR 2.9(H) [facility] Comment: Reference Range 0.9-1.1 Moderate-intensity Warfarin Therapy 2.0-3.0 Higher-intensity Warfarin Therapy 3.0-4.0 PT 29.3(H) 9.0 - 11.5 sec [facility] Comment: For additional information, please refer to http://TradersHighway.TwoTen/faq/DDD845 (This link is being provided for informational/ educational purposes only.) Blood 03/04/2025 8:57 AM CDT 03/04/2025 8:57 AM CDT Rony Dubose MD LAB BLOOD ORDERABLES Fin al Result [facility] [address] [place] [address] * ECG 12 lead (03/02/2025 12:53 PM CDT) Rony Dubose MD ECG ORDERABLES Final Re sult * (ABNORMAL) Protime-INR (02/25/2025 8:55 AM CDT) INR 3.7(H) [facility] Comment: Reference Range 0.9-1.1 Moderate-intensity Warfarin Therapy 2.0-3.0 Higher-intensity Warfarin Therapy 3.0-4.0 PT 36.6(H) 9.0 - 11.5 sec [facility] Comment: For additional information, please refer to http://TradersHighway.TwoTen/faq/HVQ714 (This link is being provided for informational/ educational purposes only.) Blood 02/25/2025 8:55 AM CDT 02/25/2025 8:55 AM CDT Narrative [facility] - 02/25/2025 3:39 PM CDT FASTING:NO FASTING: NO Rony Dubose MD LAB BLOOD ORDERABLES Fin al Result Performing Organization Address [facility] de Phone Number [facility] [address] [place] [address] * (ABNORMAL) Protime-INR (02/17/2025 8:46 AM CDT) INR 1.3(H) [facility] Comment: Reference Range 0.9-1.1 Moderate-intensity Warfarin Therapy 2.0-3.0 Higher-intensity Warfarin Therapy 3.0-4.0 PT 14.0(H) 9.0 - 11.5 sec [facility] Comment: For additional information, please refer to http://education.TwoTen/faq/VNZ542 (This link is being provided for informational/ educational purposes only.) Blood 02/17/2025 8:46 AM CDT 02/17/2025 8:47 AM CDT Rony Dubose MD LAB BLOOD ORDERABLES Fin al Result Performing Organization Address [facility] de Phone Number [facility] [address] [place] [address] from Last 3 [place] [address] [place] [address] [employer]ICARE [employer] Care Teams Ship Fitter Relationship Specialty Start Date End Date Pat Morales DO PCP - General Family Medicine 07/11/21
--- OUTSIDE RECORDS SUMMARY | 2025-03-10 10:52 | XMS_ITS | Clinical Summary ---
Author Organization [facility] Address [address] [place] [phone] Care Team Providers Care Talent Acquisition Manager Name Role Phone Pat Morales DO Primary Care Provider +1- [phone] Allergies Active Allergy Reactions Criticality Noted Date [...] Take 2 tablets by mouth daily Active [id number]-kgo g-Qtbolyoy-imn al 27 mg iron-1.13 mg-581.92 mg capsule [...] 07/17/2021 Palpitations 07/17/2021 Other chest pain 07/17/2021 Encounters Date Type Department Care Team Description 03/07/2025 Anticoagulation Visit [facility] Cardiology [address] [place] [address] [place] [phone] Marta Mcintosh RN Typical atrial flutter (HCC) (Primary Dx); Atrial fibrillation, unspecified type (HCC) 03/04/2025 Telephone [facility] Cardiology [address] [place] [phone] Rony Dubose MD 03/02/2025 1:15 PM CDT Procedure visit [facility] Cardiology [address] [place] [phone] Palpitations 02/25/2025 Anticoagulation Visit [facility] Cardiology [address] [place] [address] [place] [phone] Donn Parsons RN Typical atrial flutter (HCC) (Primary Dx); Atrial fibrillation, unspecified type (HCC) 02/18/2025 Anticoagulation Visit [facility] Cardiology [address] [place] [address] [place] [phone] Mrata Mcintosh RN Typical atrial flutter (HCC) (Primary Dx); Atrial fibrillation, unspecified type (HCC) 02/08/2025 Anticoagulation Visit [facility] Cardiology [address] [facility] [address] [place] [phone] Kelsea Hartley RN Typical atrial flutter (HCC) (Primary Dx); Atrial fibrillation, unspecified type (HCC) 02/08/2025 Telephone [facility] Cardiology [address] [place] [address] [place] [phone] Rony Dubose MD 01/26/2025 Telephone [facility] Cardiology [address] [place] [address] [address] [place] [phone] Laurie Prater MA Med Refill 12/10/2024 Telephone [facility] Cardiology [address] [place] [address] [address] [place] [phone] Rony Dubose MD from Last 3 Months Surgical History Surgery Date Site/Laterality Comments TONSILLECTOMY BACK SURGERY HYSTERECTOMY KNEE SURGERY Medical History Medical History Date Comments Hypertension Hyperlipidemia Acid indigestion Cataracts, bilateral Glaucoma Arthritis Family History Medical History Relation Name Comments Cancer Father Cancer Mother Relation Name Status Comments Father Mother Social History Tobacco Use Types Packs/Day Years Used Date Smoking Tobacco: Never Smokeless Tobacco: Never Tobacco Cessation:Counseling Given: Not Answered Comments Unknown Sex and Gender Information Value Date Recorded Sex Assigned at Not on file 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 Gender Identity Not on file Sexual Orientation Not on file Obstetrics History Last Filed Vital Signs Vital Sign Reading Time Taken Comments Blood Pressure 126/64 03/02/2025 12:46 PM CDT Pulse 55 03/02/2025 12:46 PM CDT Temperature - - Respiratory Rate - - Oxygen Saturation 98% 03/02/2025 12:46 PM CDT Inhaled Oxygen Concentration - - Weight 76.8 kg (169 lb 6.4 oz) 11/30/2024 10:26 AM SAFETY CLOTHING AND EQUIPMENT DEVELOPER Height 160 cm (5' 3 ) 11/30/2024 10:26 AM SAFETY CLOTHING AND EQUIPMENT DEVELOPER Body Mass Index 30.01 11/30/2024 10:26 AM SAFETY CLOTHING AND EQUIPMENT DEVELOPER Plan of Treatment Health Maintenance Due Date Last Done Comments Depression Screening 1940 Fall Risk Assessment 1940 Osteoporosis Screening-Bone Density Scan 1940 Hepatitis B Screening 1957 Pneumococcal vaccine 65+ (1 of 1 - PCV) 1989 Zoster Vaccine (1 of 2) 1989 Well Visit 65+ 2004 DTaP/Tdap/Td Vaccine (1 - Tdap) 04/06/2019 9 Covid-19 Vaccine (3 - season) 2024, 11/15/2020 Influenza Vaccine (Season Ended) 2025 08/24/2019, 07/21/2018, 08/03/2015 Procedures Procedure Name Priority Date/Time Associated Diagnosis [...] Protime-INR (03/04/2025 8:57 AM CDT) INR 2.9(H) [facility] Comment: Reference Range 0.9-1.1 Moderate-intensity Warfarin Therapy 2.0-3.0 Higher-intensity Warfarin Therapy 3.0-4.0 PT 29.3(H) 9.0 - 11.5 sec [facility] Comment: For additional information, please refer to http://education.dianboom/faq/HJL884 (This link is being provided for informational/ educational purposes only.) Blood 03/04/2025 8:57 AM CDT 03/04/2025 8:57 AM CDT us Rony Dubose MD LAB BLOOD ORDERABLES Fin al Result [facility]ed [facility] [address] [place] [address] * ECG 12 lead (03/02/2025 12:53 PM CDT) Rony Dubose MD ECG ORDERABLES Final Re sult * (ABNORMAL) Protime-INR (02/25/2025 8:55 AM CDT) INR 3.7(H) [facility] Comment: Reference Range 0.9-1.1 Moderate-intensity Warfarin Therapy 2.0-3.0 Higher-intensity Warfarin Therapy 3.0-4.0 PT 36.6(H) 9.0 - 11.5 sec [facility] Comment: For additional information, please refer to http://TVbeat/faq/UCF847 (This link is being provided for informational/ educational purposes only.) Blood 02/25/2025 8:55 AM CDT 02/25/2025 8:55 AM CDT Narrative [facility] - 02/25/2025 3:39 PM CDT FASTING:NO FASTING: NO Rony Dubose MD LAB BLOOD ORDERABLES Fin al Result [facility] [address] [place] [address] * (ABNORMAL) Protime-INR (02/17/2025 8:46 AM CDT) INR 1.3(H) [facility] Comment: Reference Range 0.9-1.1 Moderate-intensity Warfarin Therapy 2.0-3.0 Higher-intensity Warfarin Therapy 3.0-4.0 PT 14.0(H) 9.0 - 11.5 sec [facility] Comment: For additional information, please refer to http://TVbeat/faq/KXA392 (This link is being provided for informational/ educational purposes only.) Blood 02/17/2025 8:46 AM CDT 02/17/2025 8:47 AM CDT Rony Dubose MD LAB BLOOD ORDERABLES Fin al Result [facility] [address] [place] [address] from Last 3 Months Insurance [place] [address] MEDICARE [facility] [facility] Care Teams Talent Acquisition Manager Relationship Specialty Start Date End Date Pat Morales DO PCP - General Family Medicine 07/11/21
[2025-03-10 20:40] LABS: IFOB Positive Control Positive; Immunochemical Fecal Occult Bl Positive (N)
== END 2025-03-10 09:51 | disposition home or self-care (01) ==
LOC: ANHGOSHLAB 09:51
PROVIDERS: PCP Family Medicine; Visit Provider Family Medicine
DX: D64.9 Anemia, unspecified (principal)
CPT/HCPCS: 82274

== ENCOUNTER 2025-05-03 08:33 | Outpatient (CLI) | payer MEDICARE, OTHER, SELFPAY ==
--- NOTE | ~2025-05-03 | MM_ITS ---
EXAMINATION: MM screening [facility] BI w quintin HISTORY: Screening TECHNIQUE: Craniocaudal and mediolateral oblique 3-D tomosynthesis images were obtained and synthetic 2-D images were generated. CAD analysis was submitted and interpreted. COMPARISON: Comparison to multiple prior studies sequentially, with oldest reviewed study dated 01/12. BREAST PARENCHYMAL COMPOSITION: Not dense: There are scattered areas of fibroglandular density. FINDINGS: There is no evidence of suspicious mass, calcification, or architectural distortion to sugg est malignancy in either breast. There has been no suspicious interval change. IMPRESSION: 1. No mammographic evidence of malignancy. 2. Recommend routine screening mammography in one year. BI-RADS Category 1: Negative Reviewed, dictated and finalized at location A.
--- OUTSIDE RECORDS SUMMARY | 2025-05-03 08:49 | XMS_ITS | Referral Summary ---
Author Organization [facility] Address [address] [place] [id number] Care Team Providers Care Prepress Technician Name Role Phone Pat Morales DO Primary Care Provider [phone]- [phone] Encounters Date Type Department Care Team Description 03/29/2025 Telephone [facility] Cardiology [address] [place] [address] [address] [place] [phone] Rony Dubose MD 03/25/2025 10:30 AM CDT Office Visit [facility] Cardiology [address] [place] [address] [address] [place] [phone] Mindy Barnard NP Iron deficiency anemia due to chronic blood loss (Primary Dx); Encounter for anticoagulation discussion and counseling; Paroxysmal atrial flutter (HCC); Mild aortic stenosis; Edema, lower extremity 03/15/2025 Telephone [facility] Cardiology [address] [place] [address] [address] [place] [phone] Rony Dubose MD 03/07/2025 Anticoagulation Visit [facility] Cardiology [address] [place] [address] [address] [place] [phone] Marta Mcintosh RN Typical atrial flutter (HCC) (Primary Dx); Atrial fibrillation, unspecified type (HCC) 03/04/2025 Telephone [facility] Cardiology [address] [place] [address] [address] [place] [phone] Rony Dubose MD 03/02/2025 1:15 PM CDT Procedure visit [facility] Cardiology [address] [place] [address] [place] [phone] Palpitations 02/25/2025 Anticoagulation Visit [facility] Cardiology [address] [place] [address] [place] [phone] Donn Parsons RN Typical atrial flutter (HCC) (Primary Dx); Atrial fibrillation, unspecified type (HCC) 02/18/2025 Anticoagulation Visit [facility] Cardiology [address] [place] [address] [place] [phone] Marta Mcintosh RN Typical atrial flutter (HCC) (Primary Dx); Atrial fibrillation, unspecified type (HCC) 02/08/2025 Anticoagulation Visit [facility] Cardiology [address] [place] [phone] Kelsea Hartley RN Typical atrial flutter (HCC) (Primary Dx); Atrial fibrillation, unspecified type (HCC) 02/08/2025 Telephone [facility] Cardiology [address] [place] [phone] Rony Dubose MD from Last 3 Months Allergies Active Allergy Reactions Criticality Noted Date Comments Penicillins Unknown 07/17/2021 Medications hydroCHLOROthia zide (HYDRODIURIL) 25 mg tablet Take 1 tablet (25 mg total) by mouth daily 1 Active olmesartan (BENICAR) 40 mg tablet Take 1 tablet (40 mg total) by mouth daily 1 Active atorvastatin (LIPITOR) 20 mg tablet Take 1 tablet (20 mg total) by mouth daily 1 Active latanoprost (XALATAN) 0.005 % ophthalmic solution Administer 1 drop into both eyes daily Active triamcinolone (KENALOG) 0.1 % ointment PLEASE SEE ATTACHED FOR DETAILED DIRECTIONS 1 Active multivitamin capsule Take 1 capsule by mouth daily Active calcium carbonate-vitam in D3 1500 mg (600 mg elemental) -200 units per tablet Take 2 tablets by mouth daily Active [id number] -Lmfolate-algal 27 mg iron-1.13 mg-581.92 mg capsule Take by mouth Active omeprazole (PriLOSEC) 40 mg capsule Take 1 capsule (40 mg total) by mouth 2 (two) times a day 3 Active lidocaine HCL 4 % cream Apply topically Acti ve clotrimazole 1 % cream Apply topically 2 (two) times a day Active furosemide (LASIX) 20 mg tablet Take 0.5 tablets (10 mg total) by mouth daily Taking 10 mg daily. 4 Active potassium chloride ER 20 mEq CR tablet Take 1 tablet (20 mEq total) by mouth daily 4 Active metoprolol tartrate (LOPRESSOR) 50 mg immediate release tablet TAKE 1 TABLET BY MOUTH TWICE A DAY 180 tablet 1 5 Active warfarin (COUMADIN) 2 mg tablet TAKE 2 TABLETS (4 MG TOTAL) BY MOUTH DAILY OR INSTRUCTED. 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1 Moderate-intensity Warfarin Therapy 2.0-3.0 Higher-intensity Warfarin Therapy 3.0-4.0 PT 29.3(H) 9.0 - 11.5 sec Remote AssistantTyron Montes Comment: For additional information, please refer to http://education.Codasystem/faq/KSW972 (This link is being provided for informational/ educational purposes only.) Blood 03/04/2025 8:57 AM CDT 03/04/2025 8:57 AM CDT Rony Dubose MD LAB BLOOD ORDERABLES Fin al Result [facility] [address] [place] [address] * ECG 12 lead (03/02/2025 12:53 PM CDT) Rony Dubose MD ECG ORDERABLES Final Re sult * (ABNORMAL) Protime-INR (02/25/2025 8:55 AM CDT) INR 3.7(H) Remote Assistant-René Montes Comment: Reference Range 0.9-1.1 Moderate-intensity Warfarin Therapy 2.0-3.0 Higher-intensity Warfarin Therapy 3.0-4.0 PT 36.6(H) 9.0 - 11.5 sec [facility] Comment: For additional information, please refer to http://Dianji Technology.Codasystem/faq/OVN245 (This link is being provided for informational/ educational purposes only.) Blood 02/25/2025 8:55 AM CDT 02/25/2025 8:55 AM CDT Narrative [facility] - 02/25/2025 3:39 PM CDT FASTING:NO FASTING: NO Rony Dubose MD LAB BLOOD ORDERABLES Fin al Result Performing Organization Address [facility] Co de Phone Number [facility] [address] [place] [address] * (ABNORMAL) Protime-INR (02/17/2025 8:46 AM CDT) INR 1.3(H) [facility] Comment: Reference Range 0.9-1.1 Moderate-intensity Warfarin Therapy 2.0-3.0 Higher-intensity Warfarin Therapy 3.0-4.0 PT 14.0(H) 9.0 - 11.5 sec [facility] Comment: For additional information, please refer to http://Dianji Technology.Codasystem/faq/ILB363 (This link is being provided for informational/ educational purposes only.) Blood 02/17/2025 8:46 AM CDT 02/17/2025 8:47 AM CDT Rony Dubose MD LAB BLOOD ORDERABLES Fin al Result Performing Organization Address [facility] Co de Phone Number [facility] [address] [place] [address] from Last 3 Months Insurance [place] [address] MEDICARE [employer] [place] Care Teams Prepress Technician Relationship Specialty Start Date End Date Pat Morales DO PCP - General Family Medicine 07/11/21
--- OUTSIDE RECORDS SUMMARY | 2025-05-03 08:49 | XMS_ITS | Clinical Summary ---
Author Organization [facility] Address [address] [place] [phone] Care Team Providers Care Gun Stock Maker Name Role Phone Pat Morales DO Primary Care Provider +1- [phone] Allergies Active Allergy Reactions Criticality Noted Date [...] Take 2 tablets by mouth daily Active [id number] -Lmfolate-algal 27 mg iron-1.13 mg-581.92 mg capsule [...] Type Department Care Team Description 03/29/2025 Telephone [facility] Cardiology [address] [place] [address] [place] [phone] Rony Dubose MD 03/25/2025 10:30 AM CDT Office Visit [facility] Cardiology [address] [place] [phone] Mindy Barnard NP Iron deficiency anemia due to chronic blood loss (Primary Dx); Encounter for anticoagulation discussion and counseling; Paroxysmal atrial flutter (HCC); Mild aortic stenosis; Edema, lower extremity 03/15/2025 Telephone [facility] Cardiology [address] [place] [address] [place] [phone] Rony Dubose MD 03/07/2025 Anticoagulation Visit [facility] Cardiology [address] [place] [address] [place] [phone] Marta Mcintosh RN Typical atrial flutter (HCC) (Primary Dx); Atrial fibrillation, unspecified type (HCC) 03/04/2025 Telephone [facility] Cardiology [address] [place] [phone] Rony Dubose MD 03/02/2025 1:15 PM CDT Procedure visit [place] [address] [place] [phone] Palpitations 02/25/2025 Anticoagulation Visit [facility] Cardiology [address] [place] [address] [place], [place] [phone] Donn Parsons RN Typical atrial flutter (HCC) (Primary Dx); Atrial fibrillation, unspecified type (HCC) 02/18/2025 Anticoagulation Visit [facility] Cardiology [address] [place] [address] [place], [place] [phone] Marta Mcintosh RN Typical atrial flutter (HCC) (Primary Dx); Atrial fibrillation, unspecified type (HCC) 02/08/2025 Anticoagulation Visit [facility] Cardiology [address] [place] [address] [place] [phone] Kelsea Hartley RN Typical atrial flutter (HCC) (Primary Dx); Atrial fibrillation, unspecified type (HCC) 02/08/2025 Telephone [facility] Cardiology [address] [place] [address] [place] [phone] Rony Dubose MD from Last 3 [...] on file 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 Gender Identity Not on file Sexual Orientation [...] 03/25/2025 10:33 AM CDT Plan of Treatment Health Maintenance Due Date [...] Protime-INR (03/04/2025 8:57 AM CDT) INR 2.9(H) Freshtake MediaTyron Montes Comment: Reference Range 0.9-1.1 Moderate-intensity Warfarin Therapy 2.0-3.0 Higher-intensity Warfarin Therapy 3.0-4.0 PT 29.3(H) 9.0 - 11.5 sec [facility] Comment: For additional information, please refer to http://education.Simple Mills/faq/LED135 (This link is being provided for informational/ educational purposes only.) Blood 03/04/2025 8:57 AM CDT 03/04/2025 8:57 AM CDT Rony Dubose MD LAB BLOOD ORDERABLES Fin al Result Performing Organization Address [facility] Co de Phone Number [facility] [address] [place] [address] * ECG 12 lead (03/02/2025 12:53 PM CDT) Rony Dubose MD ECG ORDERABLES Final Re sult * (ABNORMAL) Protime-INR (02/25/2025 8:55 AM CDT) INR 3.7(H) [employer] [facility] Comment: Reference Range 0.9-1.1 Moderate-intensity Warfarin Therapy 2.0-3.0 Higher-intensity Warfarin Therapy 3.0-4.0 PT 36.6(H) 9.0 - 11.5 sec [facility] Comment: For additional information, please refer to http://education.Simple Mills/faq/IWW745 (This link is being provided for informational/ educational purposes only.) Blood 02/25/2025 8:55 AM CDT 02/25/2025 8:55 AM CDT Narrative [facility] - 02/25/2025 3:39 PM CDT FASTING:NO FASTING: NO Rony Dubose MD LAB BLOOD ORDERABLES Fin al Result Performing Organization Address [facility] Co de Phone Number [facility] [address] [place] [address] * (ABNORMAL) Protime-INR (02/17/2025 8:46 AM CDT) INR 1.3(H) [facility] Simon Comment: Reference Range 0.9-1.1 Moderate-intensity Warfarin Therapy 2.0-3.0 Higher-intensity Warfarin Therapy 3.0-4.0 PT 14.0(H) 9.0 - 11.5 sec [employer]-René reyes Simon Comment: For additional information, please refer to http://education.Marketsync.Sendia/faq/AKP709 (This link is being provided for informational/ educational purposes only.) Blood 02/17/2025 8:46 AM CDT 02/17/2025 8:47 AM CDT us Rony Dubose MD LAB BLOOD ORDERABLES Fin al Result [facility] [address] [place] [address] from Last 3 Months Insurance MEDICARE [facility] MEDICARE [facility] [place] [address] Care Teams Gun Stock Maker Relationship Specialty Start Date End Date Pat Morales DO PCP - General Family Medicine 07/11/21
== END 2025-05-03 08:34 | disposition home or self-care (01) ==
PROVIDERS: PCP Family Medicine; Visit Provider Family Medicine
DX: Z12.31 Encounter for screening mammogram for malignant neoplasm of breast (principal)
CPT/HCPCS: 77063; 77067

== ENCOUNTER 2025-05-10 00:34 | Day surgery (SDC) | payer MEDICARE, OTHER, SELFPAY ==
[2025-04-25 14:11] VITALS: BMI 28.3
[2025-05-10] VITALS (7 sets, daily range): BP systolic 165–220; BP diastolic 68–100; PULSE 55–66; RESP 16–20; TEMP 36.3; O2SAT 99–100; BMI 27.7
[2025-05-10] MEDS: SIMETHICONE ORAL SUSPENSION 20 MG/0.3 ML 30 ML BOTTLE 1.8 ML PO (11:13)
[2025-05-10] MEDS: LACTATED RINGERS 1,000 ML 150 ML IV CONT (11:14)
--- NOTE | 2025-05-10 12:26 | P.PNAN_ITS ---
Anes - Initial Pre Proc Eval Procedure: Operation Date: 05/10/25 12:30 Proposed Procedures p Esophagogastroduodenoscopy & Colonoscopy - Rex Higgins MD Date/Time: 05/10/25 12:26 Surgeon: Rex Higgins MD Pre Op Diagnosis: GERD, Epigastric pain, Other fecal abnormalities Patient Data Age: 84 Gender: F Height: 1.6 m Weight: 71.1 kg Last Vital Signs Temp 36.3 C L 05/10/25 10:57 Pulse 55 L 05/10/25 10:57 Resp 16 05/10/25 10:57 BP 165/68 H 05/10/25 10:57 Pulse Ox 99 05/10/25 10:57 O2 Del Method Room Air 05/10/25 10:57 Allergies Allergy/AdvReac Type Severity Reaction Status Date / Time penicillin V Allergy Intermediate Rash Verified 05/10/25 11:03 quinapril Allergy Mild cough Verified 05/10/25 11:03 clarithromycin AdvReac Intermediate Diarrhea Verified 05/10/25 11:03 ciprofloxacin AdvReac Mild Gastrointestinal Verified 05/10/25 11:03 Upset Home Medications ?Medication ?Instructions ?Recorded ?Confirmed ?Type latanoprost 0.005 % eye drops 1 drp ophthalmic (eye) HS 10/06/20 05/10/25 History calcium carb-ergocalciferol (vit 2 tablet PO DAILY 06/14/22 05/10/25 History D2) 600 mg calcium-200 unit tablet omeprazole 40 mg capsule,delayed See Rx Instructions .Route 05/03/24 05/10/25 Rx release .COMPLEX #180 caps dnfrujzy-zegf-hubc 8 mg-folic 400 1 tablet PO DAILY 07/15/24 05/10/25 History mcg-K 50 mcg-lutein 300 mcg tablet (Centrum Silver Women) olmesartan 40 mg tablet See Rx Instructions .Route 12/06/24 05/10/25 Rx .COMPLEX #90 tabs furosemide 20 mg tablet See Rx Instructions .Route 01/27/25 05/10/25 Rx .COMPLEX #90 tabs hydrochlorothiazide 25 mg tablet See Rx Instructions .Route 03/07/25 05/10/25 Rx .COMPLEX #90 tabs ferrous sulfate 325 mg (65 mg 325 mg PO DAILY 04/25/25 05/10/25 History iron) tablet (FeroSul) metoprolol tartrate 50 mg tablet 50 mg PO BID 04/25/25 05/10/25 History potassium chloride 20 mEq 20 meq PO DAILY #90 tabs 05/02/25 05/10/25 Rx tablet,extended release atorvastatin 20 mg tablet See Rx Instructions .Route 05/06/25 05/10/25 Rx .COMPLEX #90 tabs Patient hx anesthesia problems: none Family hx anesthesia problems: none Results Review: All pre-operative results and documents have been reviewed as part of the pre- operative evaluation. [facility] Past Medical History Medical History History of colon polyps Positive occult stool blood test Cervical spondylosis without myelopathy Atrial fibrillation Abdominal pain Glaucoma Osteoarthritis Basal cell carcinoma of chest wall Gastroesophageal reflux disease Diverticulosis Essential hypertension Chronic kidney disease, stage 3 Glaucoma Major depressive disorder, single episode, mild Metabolic syndrome Mixed hyperlipidemia Surgical History Surgical History Knee joint replacement by other means S/P urethral surgery History of total knee arthroplasty (~11/2021) LEFT History of lumbar surgery History of cataract extraction History of hysterectomy History of tonsillectomy History of dilation and curettage History of basal cell carcinoma excision History of colonoscopy Family History Family History Grandparent Cerebrovascular accident Mother Carcinoma of colon Patient's mother is Father Family history of lung cancer Patient's father is Other Family history of elevated blood lipids Hypertension No family history of cardiovascular disease Social History Social History Social History: Caffeine-coffee,soda Surrogate decision maker: Alena Hardy, daughter. Code status: Full code. Smoking status: Never smoker Second hand tobacco smoke exposure: No Alcohol intake: current Alcohol use details: ONE DRINK PER MONTH Substance use: never Substance use type: does not use Current Housing: Decline to Answer Concerned About Future Housing: Decline to Answer Difficulty Paying Gas/Electric Bills: Decline to Answer Difficulty Paying for Meds: Decline to Answer Currently Unemployed: Decline to Answer Education: Decline to Answer Difficulty w/ Childcare or Family Care: Decline to Answer Living arrangements: alone Occupation/Education: retired Additional occupation/education comments: 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y a week/[employer] Gender identity (if verbalized by the patient): Female Spiritual care concerns: No Anes - Eval Final PreProcedure Day of Procedure 05/10/25 12:26 Patient weight: overweight Heart: regular rate and rhythm Lungs: clear to auscultation Airway: Mallampati scale class II Neurological: alert and oriented Last oral intake: >/= 8 hours ASA classification: III Emergent: no Anesthetic plan: proceed Anesthesia type and monitoring: general GIVS and standard monitoring Results Review: All pre-operative results and documents have been reviewed as part of the pre- operative evaluation. Informed Consent: The patient's anesthetic plan and its attendant risks and benefits were discussed with the patient/family/POA. Questions were solicited and answers provided to the satisfaction of the patient/family/POA.
--- NOTE | 2025-05-10 12:27 | PM.IMHP ---
H&P: HPI History of Present Illness Date/Time: 05/10/25 12:27 Chief Complaint: the patient is referred for EGD and colonoscopy for the finding of borderline iron deficiency anemia. She has been having normocytic anemia for several years, and her last colonoscopy was 2 years ago with no significant findings. Review of Systems Review of Systems: All systems reviewed & are unremarkable except as noted in HPI and below PMFSH Past Medical History Medical History History of colon polyps Positive occult stool blood test Cervical spondylosis without myelopathy Atrial fibrillation Abdominal pain Glaucoma Osteoarthritis Basal cell carcinoma of chest wall Gastroesophageal reflux disease Diverticulosis Essential hypertension Chronic kidney disease, stage 3 Glaucoma Major depressive disorder, single episode, mild Metabolic syndrome Mixed hyperlipidemia Surgical History Surgical History Knee joint replacement by other means S/P urethral surgery History of total knee arthroplasty (~11/2021) LEFT History of lumbar surgery History of cataract extraction History of hysterectomy History of tonsillectomy History of dilation and curettage History of basal cell carcinoma excision History of colonoscopy Family History Family History Grandparent Cerebrovascular accident Mother Carcinoma of colon Patient's mother is Father Family history of lung cancer Patient's father is Other Family history of elevated blood lipids Hypertension No family history of cardiovascular disease Social History Social History Social History: Caffeine-coffee,soda Surrogate decision maker: Alena Hardy, daughter. Code status: Full code. Smoking status: Never smoker Second hand tobacco smoke exposure: No Alcohol intake: current Alcohol use details: ONE DRINK PER MONTH Substance use: never Substance use type: does not use Current Housing: Decline to Answer Concerned About Future Housing: Decline to Answer Difficulty Paying Gas/Electric Bills: Decline to Answer Difficulty Paying for Meds: Decline to Answer Currently Unemployed: Decline to Answer Education: Decline to Answer Difficulty w/ Childcare or Family Care: Decline to Answer Living arrangements: alone Occupation/Education: retired Additional occupation/education comments: 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y a week/[employer] Gender identity (if verbalized by the patient): Female Spiritual care concerns: No Meds Home Medications and Allergies Home Medications ?Medication ?Instructions ?Recorded ?Confirmed ?Type latanoprost 0.005 % eye drops 1 drp ophthalmic (eye) HS 10/06/20 05/10/25 History calcium carb-ergocalciferol (vit 2 tablet PO DAILY 06/14/22 05/10/25 History D2) 600 mg calcium-200 unit tablet omeprazole 40 mg capsule,delayed See Rx Instructions .Route 05/03/24 05/10/25 Rx release .COMPLEX #180 caps kttxcuek-gowm-cmgh 8 mg-folic 400 1 tablet PO DAILY 07/15/24 05/10/25 History mcg-K 50 mcg-lutein 300 mcg tablet (Centrum Silver Women) olmesartan 40 mg tablet See Rx Instructions .Route 12/06/24 05/10/25 Rx .COMPLEX #90 tabs furosemide 20 mg tablet See Rx Instructions .Route 01/27/25 05/10/25 Rx .COMPLEX #90 tabs hydrochlorothiazide 25 mg tablet See Rx Instructions .Route 03/07/25 05/10/25 Rx .COMPLEX #90 tabs ferrous sulfate 325 mg (65 mg 325 mg PO DAILY 04/25/25 05/10/25 History iron) tablet (FeroSul) metoprolol tartrate 50 mg tablet 50 mg PO BID 04/25/25 05/10/25 History potassium chloride 20 mEq 20 meq PO DAILY #90 tabs 05/02/25 05/10/25 Rx tablet,extended release atorvastatin 20 mg tablet See Rx Instructions .Route 05/06/25 05/10/25 Rx .COMPLEX #90 tabs Allergies Allergy/AdvReac Type Severity Reaction Status Date / Time penicillin V Allergy Intermediate Rash Verified 05/10/25 11:03 quinapril Allergy Mild cough Verified 05/10/25 11:03 clarithromycin AdvReac Intermediate Diarrhea Verified 05/10/25 11:03 ciprofloxacin AdvReac Mild Gastrointestinal Verified 05/10/25 11:03 Upset Vital Signs Vital Signs - 24 hr 05/10/25 10:57 Temperature 97.3 F L Pulse Rate 55 L Respiratory Rate 16 Blood Pressure 165/68 H Pulse Oximetry 99 Oxygen Delivery Room Air Exam Const: General: cooperative and healthy appearing Resp: Effort & Inspection: normal respiratory effort and able to speak in complete sentences Auscultation: clear to auscultation bilaterally Cardio: Rate: regular rate Rhythm: regular rhythm GI: Inspection: normal to inspection GI Palp: No No hepatosplenomegaly present Auscultation: normal bowel sounds Rectal Exam: deferred Skin: General skin exam: normal color Psych: Appearance: grossly normal Mental Status: mental status grossly normal Assessment and Plan Assessment and plan (1) Iron deficiency anemia: Code(s): D50.9 - Iron deficiency anemia, unspecified Status: Acute Assessment and Plan: The patient is deemed a good candidate for the procedures. Consent signed. Will proceed.
--- NOTE | 2025-05-10 12:40 | SUR.OPER ---
EGD end time: 1235, Colonoscopy start time: 1240
--- NOTE | 2025-05-10 12:58 | S_PTH ---
PATIENT: Shama Presley LOC: [facility]#:[id number] AGE/SX: 84/F ROOM: RE05/10/[address]: Rex Higgins MD : 1940 BED: DIS: 05/10/2025 SPEC #: [id number] RECD: 05/10/25 13:41 STATUS: DESIREE REQ #: [id number] ALDAIR: 05/10/25 12:[address]: Rex Higgins DEPT: [facility] Surgical RECD BY: Jael Alvarez ENTERED: 05/10/25 13:41 SP TYPE: Surgical OTHR DR: Pat Morales, Tissues: A - Colon Polypectomy Procedures: Hematoxylin and Eosin Stain Gross and Microscopic Level 4
[2025-05-10] MEDS: hydrALAZINE HCL 20 MG/ML VIAL 5 MG IV PUSH (13:51)
--- NOTE | 2025-05-10 14:12 | SUR.PHASEII ---
pts bp during procedure was high and continued to elevate in postop. pt stated she did not take her bp med this am but did take her metoprolol. she stated her bp in her left arm is typically not accurate and requested bp be taken in her right. bp readings still high. pt also could not tolerate the pressure exerted while taking bp using the dinamap. bp done manually, pt able to tolerate. bp readings reported to dr pablo, he ordered hydralazine 5mg to get bp below 180 systolic, may repeat x 1 if needed. hyrdalazine given at 1345. bp at 1350 170/84. at 1400 170/78. pt instructed to take bp meds when she got home and to fu with her pcp. pt and daughter voiced understanding.
== END 2025-05-10 14:20 | disposition home or self-care (01) ==
PROVIDERS: PCP Family Medicine; Referring Provider Nurse Practitioner Family; Visit Provider Internal Medicine Gastroenterology
PROC: 0DJ08ZZ Inspection of Upper Intestinal Tract, Via Natural or Artificial Opening Endoscopic (ICD-10-PCS; CPT 45378; principal; 2025-05-10 12:30)
DX: D50.9 Iron deficiency anemia, unspecified (principal); D12.2 Benign neoplasm of ascending colon; K31.7 Polyp of stomach and duodenum; K57.30 Diverticulosis of large intestine without perforation or abscess without bleeding; I12.9 Hypertensive chronic kidney disease with stage 1 through stage 4 chronic kidney disease, or unspecified chronic kidney disease; N18.30 Chronic kidney disease, stage 3 unspecified; E78.2 Mixed hyperlipidemia; K21.9 Gastro-esophageal reflux disease without esophagitis; I48.91 Unspecified atrial fibrillation; E88.810 Metabolic syndrome; F32.0 Major depressive disorder, single episode, mild; Z98.890 Other specified postprocedural states; Z98.1 Arthrodesis status; Z85.828 Personal history of other malignant neoplasm of skin; Z87.19 Personal history of other diseases of the digestive system; Z80.0 Family history of malignant neoplasm of digestive organs; Z80.1 Family history of malignant neoplasm of trachea, bronchus and lung; Z82.49 Family history of ischemic heart disease and other diseases of the circulatory system
CPT/HCPCS: 43235; 45385; 88305; J0360; J2003; J2704; J7120